=== PATIENT | female | born 1960 ===

== ENCOUNTER 2017-03-27 18:35 | Inpatient (IN) | payer OTHER ==
--- NOTE | 2017-03-27 22:00 | ED PDOC ---
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 Patient reports pain to area. Patient notes a sacral pressure ulcer but denies any fever, chills, nausea, vomiting, abdominal pain, chest pain, shortness of breath or any other complaints. Past Medical History - Provider Review Nursing Documentation Reviewed: Yes - Reproductive Menopause: Yes - Cardiac Hx Cardiac Disorders: Yes Hx Hypertension: Yes - Pulmonary Hx Respiratory Disorders: No - Neurological Hx Neurological Disorder: Yes Hx Seizures: Yes (8 years old; denies as adult) Hx Syncope: Yes - HEENT Hx HEENT Disorder: No - Renal Hx Renal Disorder: Yes - Endocrine/Metabolic Hx Endocrine Disorders: No - Hematological/Oncological Hx Blood Disorders: No - Integumentary Hx Dermatological Disorder: No - Musculoskeletal/Rheumatological Hx Musculoskeletal Disorders: Yes Other/Comment: wheelchair bound; tumor in back - Gastrointestinal Hx Gastrointestinal Disorders: Yes Hx Colostomy: Yes Hx Diarrhea: Yes - Genitourinary/Gynecological Hx Incontinence: Yes - Psychiatric Hx Psychophysiologic Disorder: Yes Hx Anxiety: Yes Hx Depression: Yes Hx Substance Use: No - Surgical History Hx Section: Yes (1995) Other/Comment: tumor back 2004 - Anesthesia Hx Anesthesia: Yes Hx Anesthesia Reactions: No Hx Malignant Hyperthermia: No Family/Social History - Physician Review Nursing Documentation Reviewed: Yes Family/Social History: No Known Family HX Smoking Status: Never Smoked Hx Alcohol Use: No Hx Substance Use: No Allergies/Home Meds Allergies/Adverse Reactions: Allergies No Known Allergies Allergy (Verified 03/27/17 20:58) Home Medications: Home Meds Medication Instructions Recorded Confirmed No Known Home Med 03/27/17 03/27/17 Review of Systems - Physician Review All systems were reviewed & negative as marked: Yes - Review of Systems Constitutional: absent: Fevers, Night Sweats Respiratory: absent: SOB Cardiovascular: absent: Chest Pain Gastrointestinal: absent: Abdominal Pain, Nausea, Vomiting Musculoskeletal: Other (bilateral lower extremity redness, warmth and pain) Skin: Ulcer (sacral pressure ulcer) Physical Exam Vital Signs Reviewed: Yes Vital Signs Temp Pulse Resp BP Pulse Ox 03/27/17 22:41 97.9 F 03/27/17 19:15 97.8 F 92 H 18 145/107 H 100 Temperature: Afebrile Blood Pressure: Hypertensive Pulse: Tachycardic Respiratory Rate: Normal Appearance: Positive for: Well-Appearing, Non-Toxic, Comfortable Pain Distress: None Mental Status: Positive for: Alert and Oriented X 3 - Systems Exam Head: Present: Atraumatic, Normocephalic Pupils: Present: PERRL Extroacular Muscles: Present: EOMI Conjunctiva: Present: Normal Mouth: Present: Moist Mucous Membranes Neck: Present: Normal Range of Motion Respiratory/Chest: Present: Clear to Auscultation, Good Air Exchange. No: Respiratory Distress, Accessory Muscle Use Cardiovascular: Present: Regular Rate and Rhythm, Normal S1, S2. No: Murmurs Abdomen: Present: Normal Bowel Sounds, Other (Abdominal left sided colostomy bag ). No: Tenderness, Distention, Peritoneal Signs Back: Present: Normal Inspection, Decubitus Ulcer (sacral decubitus ulcer with minimal draining fluid to the depth of the bone, no surrounding erythema or foul smell) Upper Extremity: Present: Erythema (to bilaterl legs below the knees), Temperature Abnormalties (Hot to touch bilateral legs below th knees). No: Cyanosis, Edema Lower Extremity: Present: Normal Inspection. No: Edema Neurological: Present: GCS=15, CN II-XII Intact, Speech Normal Skin: Present: Warm, Dry, Normal Color. No: Rashes Psychiatric: Present: Alert, Oriented x 3, Normal Insight, Normal Concentration Medical Decision Making ED Course and Treatment: 03/27/17 21:57 Impression: A 56 year old female with bilateral lower extremity redness, warmth and pain. Patient notes sacral pressure ulcer. Plan: -- Labs -- Blood and Urine culture -- Urinalysis -- Reassess and disposition Progress Notes: - Lab Interpretations Lab Results: 03/27/17 21:50 03/27/17 21:35 Lab Results 03/27/17 21:50: WBC 7.0, RBC 5.23, Hgb 13.5, Hct 42.6, MCV 81.5, MCH 25.8, MCHC 31.7, RDW 13.5, Plt Count 286, MPV 10.1, Gran % 69.0 H, Lymph % (Auto) 26.4, [place] % (Auto) 3.1, Eos % (Auto) 1.1 L, Baso % (Auto) 0.4, Gran # 4.82, Lymph # 1.9, Ellsworth # 0.2, Eos # 0.1, Baso # 0.03 03/27/17 21:35: Sodium 141, Potassium 4.2, Chloride 105, Carbon Dioxide 26, Anion Gap 14, BUN 16, Creatinine 0.6 L, Est GFR ( Amer) > 60, Est GFR ( Non-Af Amer) > 60, Random Glucose 135 H, Calcium 9.6, Total Bilirubin 0.7, AST 28, ALT 33, Alkaline Phosphatase 58, Total Protein 7.6, Albumin 4.3, Globulin 3.3, Albumin/Globulin Ratio 1.3, Lipase 98 I have reviewed the lab results: Yes - Medication Orders Current Medication Orders: Piperacillin Sod/Tazobactam Sod (Zosyn 3.375 In Ns 100ml) 100 mls @ 200 mls/hr IVPB STAT STA PRN Reason: Protocol Stop: 03/27/17 23:20 - Scribe Statement The provider has reviewed the documentation as recorded by the Rhett Goins Provider Scribe Attestation: All medical record entries made by the Scribe were at my direction and personally dictated by me. I have reviewed the chart and agree that the record accurately reflects my personal performance of the history, physical exam, medical decision making, and the department course for this patient. I have also personally directed, reviewed, and agree with the discharge instructions and disposition. Disposition/Present on Arrival - Present on Arrival Any Indicators Present on Arrival: Yes History of DVT/PE: No History of Uncontrolled Diabetes: No Urinary Catheter: Yes History of Decub. Ulcer: Yes (unstagable sacral) History Surgical Site Infection Following: Abdominal Surgery, Orthopedic Procedures - Disposition Have Diagnosis and Disposition been Completed?: Yes Diagnosis: Cellulitis, Sacral decubitus ulcer Disposition: HOSPITALIZED Disposition Time: 22:40 Condition: STABLE
[2017-03-27 22:02] LABS: BASO # 0.03 K/mm3 (0.0-2.0); BASO % 0.4 % (0.0-3.0); EOS # 0.1 (0.0-0.7); EOS % 1.1 % (1.5-5.0); GRAN # 4.82 (1.4-6.5); HEMOGLOBIN 13.5 g/dL (12.0-16.0); LYMPH # 1.9 (1.2-3.4); LYMPH % 26.4 % (22.0-35.0); MEAN CELL VOLUME 81.5 fl (80.0-105.0); MEAN CORPUSCULAR HEMOGLOBIN 25.8 pg (25.0-35.0); MEAN CORPUSCULAR HGB CONC 31.7 g/dl (31.0-37.0); MEAN PLATELET VOLUME 10.1 fl (7.0-11.0); MONO # 0.2 (0.1-0.6); MONO % 3.1 % (1.0-6.0); RBC 5.23 10^6/uL (3.5-6.1); RED CELL DISTRIBUTION WIDTH 13.5 % (11.5-14.5)
[2017-03-27 22:09] LABS: ALB/GLOB RATIO 1.3 (1.1-1.8); ALBUMIN 4.3 g/dL (3.0-4.8); ALT/SGPT 33 U/L (7-56); AST/SGOT 28 U/L (14-36); BLOOD UREA NITROGEN 16 mg/dL (7-21); CALCIUM 9.6 mg/dL (8.4-10.5); GFR AFRICAN-AMERICAN > 60; GFR NON-AFRICAN AMERICAN > 60; LIPASE 98 U/L (23-300)
[2017-03-27] MEDS ORDERED: Piperacillin/Tazobact 3.375 gm 100 ML IVPB STA (22:51)
[2017-03-27 23:12] LABS: PH,URINE 6.5 (4.7-8.0); URINE BILIRUBIN NEGATIVE (NEGATIVE); URINE BLOOD NEGATIVE (NEGATIVE); URINE GLUCOSE (UA) >=1000 mg/dL (NEGATIVE); URINE LEUKOCYTE ESTERASE TRACE Leu/uL (NEGATIVE); URINE NITRATE POSITIVE (NEGATIVE); URINE PROTEIN NEGATIVE mg/dL (<30 mg/dL); URINE UROBILINOGEN 0.2 E.U./dL (<1 E.U./dL)
[2017-03-27 23:38] LABS: URINE APPEARANCE SL CLOUDY (CLEAR); URINE COLOR YELLOW (YELLOW)
[2017-03-27 23:41] LABS: URINE BACTERIA MANY (NEG); URINE EPITHELIAL CELLS 0 - 2 /hpf (0-5); URINE RBC 0 - 2 /hpf (0-2)
--- NOTE | 2017-03-28 02:46 | CP.PCM.CON ---
History of Present Illness - History of Present Illness History of Present Illness: Surgery Consult note. Dr. Coto 56yo F with PMHx of Paraplegia 2/2 back tumor, HTN, DM, Anxiety, Depression here for evaluation of bilateral lower extremity wounds, redness and swelling. Surgery consulted for right ischial decubitus. Patient states that she has had R ischial decubitus for a long time. She denies any pain to the right ischial wound and only reports some paresthesias below the level of the lumbar spine. Denies any F/C. No N/V/D. No Abd pain. No CP/SOB. She is unsure when the bilateral lower extremity swelling and erythema started. Does report taking oral antibiotics recently, she does not recall name, does report taking them to completion. She reports a diverting colostomy which was placed at [facility] 2 months ago in order to help the ischial decubitus healing. States that the colostomy is having good output and denies any complaints regarding it. PMHx: Paraplegia, HTN, DM, Anxiety, Depression PSHx: Colostomy, Social Hx: Denies Tobacco, denies ETOH, denies illicit drugs. Wheelchair bound. Homeless NKDA Review of Systems - Review of Systems All systems: reviewed and no additional remarkable complaints except - Constitutional Constitutional: absent: Chills, Fever - Cardiovascular Cardiovascular: absent: Chest Pain, Dyspnea - Respiratory Respiratory: absent: Dyspnea - Gastrointestinal Gastrointestinal: absent: Abdominal Pain, Constipation, Hematemesis, Hematochezia, Nausea, Vomiting - Genitourinary Genitourinary: absent: Dysuria - Musculoskeletal Musculoskeletal: Back Pain - Integumentary Additional comments: lower extremity swelling, erythema. R ischial decubitus Past Patient History - Past Social History Smoking Status: Never Smoked - CARDIAC Hx Cardiac Disorders: Yes Hx Hypertension: Yes - PULMONARY Hx Respiratory Disorders: No - NEUROLOGICAL Hx Neurological Disorder: Yes Hx Seizures: Yes (8 years old; denies as adult) Hx Syncope: Yes - HEENT Hx HEENT Problems: No - RENAL Hx Chronic Kidney Disease: Yes - ENDOCRINE/METABOLIC Hx Endocrine Disorders: No - HEMATOLOGICAL/ONCOLOGICAL Hx Blood Disorders: No - INTEGUMENTARY Hx Dermatological Problems: No - MUSCULOSKELETAL/RHEUMATOLOGICAL Hx Musculoskeletal Disorders: Yes Other/Comment: wheelchair bound; tumor in back - GASTROINTESTINAL Hx Gastrointestinal Disorders: Yes Hx Colostomy: Yes Hx Diarrhea: Yes - GENITOURINARY/GYNECOLOGICAL Hx Incontinence: Yes - PSYCHIATRIC Hx Psychophysiologic Disorder: Yes Hx Anxiety: Yes Hx Depression: Yes Hx Substance Use: No - SURGICAL HISTORY Hx Section: Yes (1995) Other/Comment: tumor back 2004 - ANESTHESIA Hx Anesthesia: Yes Hx Anesthesia Reactions: No Hx Malignant Hyperthermia: No Meds Allergies/Adverse Reactions: Allergies Allergy/AdvReac Type Severity Reaction Status Date / Time No Known Allergies Allergy Verified 03/27/17 20:58 Physical Exam - Constitutional Appears: Non-toxic, No Acute Distress - Head Exam Head Exam: ATRAUMATIC, NORMAL INSPECTION, NORMOCEPHALIC - Eye Exam Eye Exam: EOMI, Normal appearance - ENT Exam ENT Exam: Mucous Membranes Moist - Respiratory Exam Respiratory Exam: NORMAL BREATHING PATTERN. absent: Accessory Muscle Use, Respiratory Distress - Cardiovascular Exam Cardiovascular Exam: RRR. absent: JVD - GI/Abdominal Exam GI & Abdominal Exam: Soft. absent: Distended, Firm, Guarding, Rebound, Rigid, Tenderness Additional comments: colostomy in place, bag in place with no leaks. Semi-solid brown stool output in ostomy. No tenderness - Extremities Exam Extremities exam: Positive for: normal inspection. Negative for: calf tenderness - Neurological Exam Neurological exam: Alert, Oriented x3 - Skin Additional comments: R ischial wound: 6cm x 7cm x 6cm deep wound. Dry with some necrotic tissue deep within wound. No tenderness to palpation. No active drainage or foul odor. Clean and pink wound edges. Bilateral lower extremity erythema up to pretibia. Non-pitting edema. no tenderness. Left lower extremity with two non-healing wounds, superficial. Results - Vital Signs Recent Vital Signs: Last Vital Signs Temp 97.9 F 03/27/17 22:41 Pulse 88 03/28/17 01:29 Resp 17 03/28/17 01:29 BP 116/75 03/28/17 01:29 Pulse Ox 100 03/28/17 01:29 - Labs Result Diagrams: 03/28/17 06:45 03/28/17 06:45 Assessment & Plan - Assessment and Plan (Free Text) Assessment: 56yo F with Right Ischial Stage IV decubitus and bilateral lower extremity cellulitis - Wound care nursing eval - She may benefit with negative pressure wound vac therapy - Continue Abx as per ID - pain management Further recs as per Dr. Nnamdi Luevano PGY1 surgery pager: [phone]
[2017-03-28] MEDS ORDERED: Morphine 2 mg/ml ISec IVP PRN ×2 (02:47→09:09)
[2017-03-28] MEDS: Vancomycin 1gm in NS 250ml 1 GM/250 ML BAG IVPB SCH ×2 (06:57→18:45)
[2017-03-28 07:59] LABS: ALB/GLOB RATIO 0.9 (1.1-1.8); ALBUMIN 2.9 g/dL (3.0-4.8); ALT/SGPT 20 U/L (7-56); AST/SGOT 24 U/L (14-36); BLOOD UREA NITROGEN 10 mg/dL (7-21); CALCIUM 9.5 mg/dL (8.4-10.5); GFR AFRICAN-AMERICAN > 60; GFR NON-AFRICAN AMERICAN > 60
[2017-03-28 08:03] LABS: BASO # 0.02 K/mm3 (0.0-2.0); BASO % 0.4 % (0.0-3.0); EOS # 0.2 (0.0-0.7); EOS % 3.3 % (1.5-5.0); GRAN # 2.63 (1.4-6.5); GRAN % 57.5 % (50.0-68.0); LYMPH # 1.4 (1.2-3.4); LYMPH % 30.3 % (22.0-35.0); MEAN CORPUSCULAR HEMOGLOBIN 22.6 pg (25.0-35.0); MEAN CORPUSCULAR HGB CONC 29.7 g/dl (31.0-37.0); MEAN PLATELET VOLUME 8.6 fl (7.0-11.0); MONO # 0.4 (0.1-0.6); MONO % 8.5 % (1.0-6.0); RBC 3.99 10^6/uL (3.5-6.1); RED CELL DISTRIBUTION WIDTH 17.7 % (11.5-14.5); WHITE BLOOD COUNT 4.6 10^3/ul (4.5-11.0)
[2017-03-28 08:05] LABS: MEAN CELL VOLUME 75.9 fl (80.0-105.0)
--- NOTE | 2017-03-28 11:23 | CP.PCM.CON ---
<Lilibeth Ly - Last Filed: 03/28/17 13:04> History of Present Illness - History of Present Illness History of Present Illness: PGY2 Medicine Resident Consult note for GI 56yo male PMHx Paraplegia 2/2 back tumor, HTN, DM, uterine fibroids, Anxiety, Depression presented to ED for evaluation of b/l LE wounds, redness, and swelling. Patient noted to have a R ischial wound and reports paresthesias below the lumbar spine. GI consulted for anemia. Patient reports a diverting colostomy which was placed at [facility] 2 months ago in order to help the ischial decubitus healing. Since then she stated she noted some blood in the ostomy bag after the procedure and recently aswell. She denied any dizzines, lightheadedness, nausea, vomiting, abdominal pain, melena, diarrhea, constipation. Patient is wheelchair bound. ROS: 12 point review of systems negative except as indicated in HPI PMHx: Paraplegia 2/2 back tumor, HTN, DM, uterine fibroids, Anxiety, Depression PSurgHx: diverting colostomy [facility] 2 months ago, PProcedures: Colonoscopy 2004 in [facility] Family Hx: denied hx of colon or gastric ca Social Hx: Denies Tobacco, denies ETOH, denies illicit drugs. Wheelchair bound. Homeless Meds: Please see medication reconciliation ALL: NKDA PMD: none GI: none Pharmacy: [facility] in [place] Review of Systems - Review of Systems All systems: reviewed and no additional remarkable complaints except - Constitutional Constitutional: As Per HPI. absent: Chills, Fever - EENT Eyes: As Per HPI. absent: Blurred Vision Ears: As Per HPI. absent: Dizziness Nose/Mouth/Throat: As Per HPI. absent: Sore Throat - Cardiovascular Cardiovascular: As Per HPI. absent: Chest Pain, Dyspnea - Respiratory Respiratory: As Per HPI. absent: Cough, Dyspnea - Gastrointestinal Gastrointestinal: As Per HPI, Hematochezia. absent: Abdominal Pain, Change in Bowel Habits, Constipation, Cramping, Diarrhea, Hematemesis, Loose Stools, Melena, Nausea, Vomiting - Genitourinary Genitourinary: As Per HPI. absent: Dysuria - Integumentary Integumentary: As Per HPI Additional comments: swelling and redness b/l LE - Neurological Neurological: As Per HPI. absent: Disequilibrium, Dizziness, Headaches, Weakness - Endocrine Endocrine: As Per HPI. absent: Polydipsia, Polyphagia, Polyuria - Hematologic/Lymphatic Hematologic: As Per HPI. absent: Easy Bleeding Past Patient History - Past Social History Smoking Status: Never Smoked - CARDIAC Hx Cardiac Disorders: Yes Hx Hypertension: Yes - PULMONARY Hx Respiratory Disorders: No - NEUROLOGICAL Hx Neurological Disorder: Yes Hx Seizures: Yes (8 years old; denies as adult) Hx Syncope: Yes - HEENT Hx HEENT Problems: No - RENAL Hx Chronic Kidney Disease: Yes - ENDOCRINE/METABOLIC Hx Endocrine Disorders: No - HEMATOLOGICAL/ONCOLOGICAL Hx Blood Disorders: No - INTEGUMENTARY Hx Dermatological Problems: No - MUSCULOSKELETAL/RHEUMATOLOGICAL Hx Musculoskeletal Disorders: Yes Other/Comment: wheelchair bound; tumor in back - GASTROINTESTINAL Hx Gastrointestinal Disorders: Yes Hx Colostomy: Yes Hx Diarrhea: Yes - GENITOURINARY/GYNECOLOGICAL Hx Incontinence: Yes - PSYCHIATRIC Hx Psychophysiologic Disorder: Yes Hx Anxiety: Yes Hx Depression: Yes Hx Substance Use: No - SURGICAL HISTORY Hx Section: Yes (1995) Other/Comment: tumor back 2004 - ANESTHESIA Hx Anesthesia: Yes Hx Anesthesia Reactions: No Hx Malignant Hyperthermia: No Meds Allergies/Adverse Reactions: Allergies Allergy/AdvReac Type Severity Reaction Status Date / Time No Known Allergies Allergy Verified 03/27/17 20:58 - Medications Medications: Current Medications Amlodipine Besylate (Norvasc) 5 mg PO DAILY [facility] Aspirin (Aspirin Chewable) 81 mg PO DAILY [facility] Atorvastatin Calcium (Lipitor) 10 mg PO DIN [facility] Glipizide (Glucotrol) 10 mg PO 0730,1630 [facility] Vancomycin HCl (Vancomycin 1gm) 1 gm in 250 mls @ 167 mls/hr IVPB Q12H [facility] PRN Reason: Protocol Last Admin: 03/28/17 06:57 Dose: 167 mls/hr Insulin Detemir (Levemir) 20 unit SC HS [facility] Insulin Human Regular (Humulin R Low) 0 units SC ACHS [facility] PRN Reason: Protocol Morphine Sulfate (Morphine) 2 mg IVP Q4H PRN PRN Reason: Pain, severe (8-10) Morphine Sulfate (Morphine) 1 mg IVP Q6H PRN PRN Reason: Pain, moderate (4-7) Sertraline HCl (Zoloft) 100 mg PO DAILY [facility] Thiamine HCl (Vitamin B1 Tab) 100 mg PO DAILY [facility] Physical Exam - Constitutional Appears: Non-toxic, No Acute Distress, Unkempt - Head Exam Head Exam: ATRAUMATIC, NORMAL INSPECTION, NORMOCEPHALIC - Eye Exam Eye Exam: EOMI, Normal appearance. absent: Conjunctival injection, Scleral icterus - ENT Exam ENT Exam: Mucous Membranes Moist - Respiratory Exam Respiratory Exam: Clear to Auscultation Bilateral, NORMAL BREATHING PATTERN. absent: Accessory Muscle Use, Rales, Rhonchi, Wheezes, Respiratory Distress - Cardiovascular Exam Cardiovascular Exam: RRR, +S1, +S2. absent: Systolic Murmur - GI/Abdominal Exam GI & Abdominal Exam: Normal Bowel Sounds, Soft. absent: Tenderness Additional comments: colostomy in place, bag with no leaks. Semi-solid brown stool output in ostomy - Rectal Exam Rectal Exam: Deferred - Extremities Exam Additional comments: erythematous b/l - Neurological Exam Neurological exam: Alert, Oriented x3 - Psychiatric Exam Psychiatric exam: Normal Affect, Normal Mood Results - Vital Signs Recent Vital Signs: Last Vital Signs Temp 98.5 F 03/28/17 08:15 Pulse 87 03/28/17 08:15 Resp 20 03/28/17 08:15 BP 154/100 H 03/28/17 08:15 Pulse Ox 99 03/28/17 08:15 - Labs Result Diagrams: 03/28/17 12:10 03/28/17 06:45 Assessment & Plan - Assessment and Plan (Free Text) Assessment: 56yo male PMHx Paraplegia 2/2 back tumor, HTN, DM, uterine fibroids, Anxiety, Depression presented to ED for evaluation of b/l LE wounds, redness, and swelling 1. anemia 2. R ischial stage IV decubitus 3. b/l LE cellulitis Plan: -Hgb on admission 9 --> repeat 8.8 -f/u iron studies -may benefit from endoscopic eval once acute issues resolve -continue management as per primary GI will monitor clinical course Discussed with Dr. Jose Ly PGY2 <Donald Garcia MD - Last Filed: 03/28/17 19:56> Meds - Medications Medications: Current Medications Amlodipine Besylate (Norvasc) 5 mg PO DAILY [facility] Last Admin: 03/28/17 11:40 Dose: 5 mg Aspirin (Aspirin Chewable) 81 mg PO DAILY [facility] Last Admin: 03/28/17 11:39 Dose: 81 mg Atorvastatin Calcium (Lipitor) 10 mg PO DIN [facility] Last Admin: 03/28/17 17:11 Dose: 10 mg Betamethasone/Clotrimazole (Lotrisone) 0 ml TOP DAILY [facility] Glipizide (Glucotrol) 10 mg PO 0730,1630 [facility] Last Admin: 03/28/17 17:19 Dose: 10 mg Vancomycin HCl (Vancomycin 1gm) 1 gm in 250 mls @ 167 mls/hr IVPB Q12H [facility] PRN Reason: Protocol Last Admin: 03/28/17 18:45 Dose: 167 mls/hr Insulin Detemir (Levemir) 20 unit SC HS [facility] Insulin Human Regular (Humulin R Low) 0 units SC ACHS [facility] PRN Reason: Protocol Last Admin: 03/28/17 17:11 Dose: 2 units Morphine Sulfate (Morphine) 2 mg IVP Q4H PRN PRN Reason: Pain, severe (8-10) Last Admin: 03/28/17 17:19 Dose: 2 mg Morphine Sulfate (Morphine) 1 mg IVP Q6H PRN PRN Reason: Pain, moderate (4-7) Sertraline HCl (Zoloft) 100 mg PO DAILY [facility] Last Admin: 03/28/17 11:39 Dose: 100 mg Thiamine HCl (Vitamin B1 Tab) 100 mg PO DAILY [facility] Last Admin: 03/28/17 11:40 Dose: 100 mg Results - Vital Signs Recent Vital Signs: Last Vital Signs Temp 98.5 F 03/28/17 08:15 Pulse 87 03/28/17 08:15 Resp 20 03/28/17 08:15 BP 154/100 H 03/28/17 08:15 Pulse Ox 99 03/28/17 08:15 - Labs Result Diagrams: 03/28/17 12:10 03/28/17 06:45 Labs: Laboratory Results - last 24 hr 03/28/17 03/28/17 03/28/17 11:52 12:10 13:00 WBC 4.4 L RBC 3.93 Hgb 8.8 L Hct 30.0 L MCV 76.3 L MCH 22.4 L MCHC 29.3 L RDW 17.7 H Plt Count 328 MPV 8.6 POC Glucose (mg/dL) 303 H Iron TIBC % Saturation Transferrin 197.39 L 03/28/17 03/28/17 13:00 16:39 WBC RBC Hgb Hct MCV MCH MCHC RDW Plt Count MPV POC Glucose (mg/dL) 230 H Iron 17 L TIBC 254 L % Saturation 7 L Transferrin Attending/Attestation - Attestation I have personally seen and examined this patient.: Yes I have fully participated in the care of the patient.: Yes I have reviewed all pertinent clinical information: Yes Notes (Text): 03/28/17 19:45 Patient seen with GI fellow and medical practice manager. This is a 56 yr old male with PMHx Paraplegia 2/2 back tumor, HTN, DM, uterine fibroids, Anxiety, Depression presented to ED for evaluation of b/l LE wounds, redness, and swelling. GI consulted for anemia. She has diverting colostomy placed two months ago to prevent from contaminating the decubiti ulcer. There was brown stool in the colostomy. H/Hct at baseline. Denies overt GI bleeding. Colonoscopy 10 years ago was normal at [facility]. Surgery managing decubiti ulcer. Trend daily Hb Continue antibiotics for B/L LE cellulitis Anemia work up Will benefit from endoscopy evaluation once acute issues have resolved
[2017-03-28 12:32] LABS: HEMOGLOBIN 8.8 g/dL (12.0-16.0); MEAN CELL VOLUME 76.3 fl (80.0-105.0); MEAN CORPUSCULAR HEMOGLOBIN 22.4 pg (25.0-35.0); MEAN CORPUSCULAR HGB CONC 29.3 g/dl (31.0-37.0); MEAN PLATELET VOLUME 8.6 fl (7.0-11.0); RBC 3.93 10^6/uL (3.5-6.1); RED CELL DISTRIBUTION WIDTH 17.7 % (11.5-14.5); WHITE BLOOD COUNT 4.4 10^3/ul (4.5-11.0)
[2017-03-28] MEDS: Insulin Reg-LOW-Coverage SC SCH ×3 (12:43→22:22)
[2017-03-28 13:39] LABS: IRON 17 ug/dL (45-180)
[2017-03-28 13:48] LABS: TOTAL IRON BINDING CAPACITY 254 ug/dL (265-497)
[2017-03-28 14:01] LABS: % IRON SATURATION 7 % (20-55)
--- NOTE | 2017-03-28 15:27 | CP.PCM.CON ---
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 Patient is seen sleeping at time of examination but is easily arousable. She states that she is currently homeless and can not give an accurate timeline of how long she has had the wounds on her legs or how long the cellulitis has been present for. She denies any malodor or purulent drainage from the wounds and denies any further pedal complaints at this time. She also denies recent N/V/F/C/CP/SOB/D/posterior calf pain when squeezed Review of Systems - Review of Systems Review of Systems: ROS as per HPI Past Patient History - Past Social History Smoking Status: Never Smoked - CARDIAC Hx Cardiac Disorders: Yes Hx Hypertension: Yes - PULMONARY Hx Respiratory Disorders: No - NEUROLOGICAL Hx Neurological Disorder: Yes Hx Seizures: Yes (8 years old; denies as adult) Hx Syncope: Yes - HEENT Hx HEENT Problems: No - RENAL Hx Chronic Kidney Disease: Yes - ENDOCRINE/METABOLIC Hx Endocrine Disorders: No - HEMATOLOGICAL/ONCOLOGICAL Hx Blood Disorders: No - INTEGUMENTARY Hx Dermatological Problems: No - MUSCULOSKELETAL/RHEUMATOLOGICAL Hx Musculoskeletal Disorders: Yes Other/Comment: wheelchair bound; tumor in back - GASTROINTESTINAL Hx Gastrointestinal Disorders: Yes Hx Colostomy: Yes Hx Diarrhea: Yes - GENITOURINARY/GYNECOLOGICAL Hx Incontinence: Yes - PSYCHIATRIC Hx Psychophysiologic Disorder: Yes Hx Anxiety: Yes Hx Depression: Yes Hx Substance Use: No - SURGICAL HISTORY Hx Section: Yes (1995) Other/Comment: tumor back 2004 - ANESTHESIA Hx Anesthesia: Yes Hx Anesthesia Reactions: No Hx Malignant Hyperthermia: No Meds Allergies/Adverse Reactions: Allergies Allergy/AdvReac Type Severity Reaction Status Date / Time No Known Allergies Allergy Verified 03/27/17 20:58 - Medications Medications: Current Medications Amlodipine Besylate (Norvasc) 5 mg PO DAILY [facility] Last Admin: 03/28/17 11:40 Dose: 5 mg Aspirin (Aspirin Chewable) 81 mg PO DAILY [facility] Last Admin: 03/28/17 11:39 Dose: 81 mg Atorvastatin Calcium (Lipitor) 10 mg PO DIN [facility] Glipizide (Glucotrol) 10 mg PO 0730,1630 [facility] Vancomycin HCl (Vancomycin 1gm) 1 gm in 250 mls @ 167 mls/hr IVPB Q12H [facility] PRN Reason: Protocol Last Admin: 03/28/17 06:57 Dose: 167 mls/hr Insulin Detemir (Levemir) 20 unit SC HS [facility] Insulin Human Regular (Humulin R Low) 0 units SC ACHS [facility] PRN Reason: Protocol Last Admin: 03/28/17 12:43 Dose: 4 units Morphine Sulfate (Morphine) 2 mg IVP Q4H PRN PRN Reason: Pain, severe (8-10) Morphine Sulfate (Morphine) 1 mg IVP Q6H PRN PRN Reason: Pain, moderate (4-7) Sertraline HCl (Zoloft) 100 mg PO DAILY [facility] Last Admin: 03/28/17 11:39 Dose: 100 mg Thiamine HCl (Vitamin B1 Tab) 100 mg PO DAILY [facility] Last Admin: 03/28/17 11:40 Dose: 100 mg Physical Exam - Constitutional Appears: Well, Non-toxic, No Acute Distress - Extremities Exam Additional comments: LE focused exam: Vasc: DP/PT pulses palpable b/l. Skin temperature elevated to b/l LE. CFT < 3 seconds to all digits b/l. Minimal edema noted to b/l LE Neuro: Epicritic and protective sensation grossly intact b/l. Derm: B/l cellulitic changes noted to legs. Two superficial wounds noted to left leg. Wound #1: Located posterior leg approximately 3 cm x 3 cm with fibrogranular base. No malodor, no purulent drainage, no tracking, tunneling or undermining noted. Wound #2: Located lateral leg approximately 2 cm x 2 cm with fibrogranular base. No malodor, no purulent drainage, no tracking, tunneling or undermining noted MSK: Paraplegia noted to RLE. Minimal POP to wounds. ROM WNL left LE. Muscle strength 5/5 to all major muscle groups, left leg - Neurological Exam Neurological exam: Alert, Oriented x3 - Psychiatric Exam Psychiatric exam: Normal Affect, Normal Mood Results - Vital Signs Recent Vital Signs: Last Vital Signs Temp 98.5 F 03/28/17 08:15 Pulse 87 03/28/17 08:15 Resp 20 03/28/17 08:15 BP 154/100 H 03/28/17 08:15 Pulse Ox 99 03/28/17 08:15 - Labs Result Diagrams: 03/28/17 12:10 03/28/17 06:45 Labs: Laboratory Results - last 24 hr 03/28/17 03/28/17 03/28/17 11:52 12:10 13:00 WBC 4.4 L RBC 3.93 Hgb 8.8 L Hct 30.0 L MCV 76.3 L MCH 22.4 L MCHC 29.3 L RDW 17.7 H Plt Count 328 MPV 8.6 POC Glucose (mg/dL) 303 H Iron 17 L TIBC 254 L % Saturation 7 L Assessment & Plan - Assessment and Plan (Free Text) Assessment: 56 yo female PMHx 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 Brito Afebrile, absent leukocytosis Continue abx Lotrisone ordered to be applied to b/l legs daily Surgical shoes ordered to be worn by patient Arterial dopplers ordered Wounds dressed with optifoam dressing No surgical intervention planned at this time Podiatry will continue to follow while patient in house - Date & Time Date: 03/28/17 Time: 15:33 <Anahy Brito - Last Filed: 04/06/17 16:24> Meds - Medications Medications: Current Medications Amlodipine Besylate (Norvasc) 5 mg PO DAILY [facility] Last Admin: 04/06/17 10:23 Dose: 5 mg Aspirin (Aspirin Chewable) 81 mg PO DAILY [facility] Last Admin: 04/06/17 10:20 Dose: 81 mg Atorvastatin Calcium (Lipitor) 10 mg PO DIN [facility] Last Admin: 04/05/17 17:51 Dose: 10 mg Betamethasone/Clotrimazole (Lotrisone) 0 ml TOP DAILY [facility] Last Admin: 04/06/17 14:18 Dose: Not Given Collagenase (Santyl) 1 gm TOP DAILY [facility] Last Admin: 04/06/17 10:23 Dose: 1 applic Ferrous Sulfate (Feosol) 324 mg PO DAILY [facility] Last Admin: 04/06/17 10:20 Dose: 324 mg Glipizide (Glucotrol) 5 mg PO 0730,1630 [facility] Last Admin: 04/06/17 08:15 Dose: 5 mg Meropenem (Merrem Iv 1 Gm Premix) 50 mls @ 100 mls/hr IVPB Q8 [facility] Last Admin: 04/06/17 14:17 Dose: 100 mls/hr Insulin Human Regular (Humulin R Low) 0 units SC ACHS [facility] PRN Reason: Protocol Last Admin: 04/06/17 11:29 Dose: Not Given Ketorolac Tromethamine (Toradol) 30 mg IVP Q6H PRN PRN Reason: Pain, moderate (4-7) Last Admin: 04/05/17 13:15 Dose: 30 mg Metformin HCl (Glucophage) 500 mg PO BID [facility] Last Admin: 04/06/17 10:20 Dose: 500 mg Sertraline HCl (Zoloft) 100 mg PO DAILY [facility] Last Admin: 04/06/17 10:20 Dose: 100 mg Thiamine HCl (Vitamin B1 Tab) 100 mg PO DAILY [facility] Last Admin: 04/06/17 10:20 Dose: 100 mg Tramadol HCl (Ultram) 50 mg PO Q8H PRN PRN Reason: Pain, severe (8-10) Last Admin: 04/06/17 14:50 Dose: 50 mg Results - Vital Signs Recent Vital Signs: Last Vital Signs Temp 97.4 F L 04/06/17 08:05 Pulse 62 04/06/17 08:05 Resp 20 04/06/17 08:05 BP 135/68 04/06/17 08:05 Pulse Ox 98 04/06/17 08:05 - Labs Result Diagrams: 04/05/17 07:00 04/05/17 07:00 Labs: Laboratory Results - last 24 hr 04/05/17 04/05/17 04/06/17 21:08 22:04 07:25 POC Glucose (mg/dL) 69 107 67 04/06/17 11:07 POC Glucose (mg/dL) 99 Attending/Attestation - Attestation I have personally seen and examined this patient.: Yes I have fully participated in the care of the patient.: Yes I have reviewed all pertinent clinical information: Yes
--- NOTE | 2017-03-28 17:11 | CP.PCM.CON ---
History of Present Illness - History of Present Illness History of Present Illness: 56 year old female with PMH of back tumor with paraplegia, S/P colostomy, indwelling Miguel catheter, HTN, DM, anxiety, history of right sided ischial decubitus ulcer came in to [facility] because of worsening redness and swelling of her lower extremities especially her left leg. She is homeless. She denies fever or chills, no nausea or vomiting, no headache or dizziness, no chest pain, no SOB, no cough or colds, no sore throat, no abdominal pain, no diarrhea, no dysuria. She also has ulcers on her legs, mostly on her left leg. Infectious Diseases consult is requested to further evaluate and manage. Review of Systems - Review of Systems All systems: reviewed and no additional remarkable complaints except (as per HPI ) Past Patient History - Past Social History Smoking Status: Never Smoked - CARDIAC Hx Cardiac Disorders: Yes Hx Hypertension: Yes - PULMONARY Hx Respiratory Disorders: No - NEUROLOGICAL Hx Neurological Disorder: Yes Hx Seizures: Yes (8 years old; denies as adult) Hx Syncope: Yes - HEENT Hx HEENT Problems: No - RENAL Hx Chronic Kidney Disease: Yes - ENDOCRINE/METABOLIC Hx Endocrine Disorders: No - HEMATOLOGICAL/ONCOLOGICAL Hx Blood Disorders: No - INTEGUMENTARY Hx Dermatological Problems: No - MUSCULOSKELETAL/RHEUMATOLOGICAL Hx Musculoskeletal Disorders: Yes Other/Comment: wheelchair bound; tumor in back - GASTROINTESTINAL Hx Gastrointestinal Disorders: Yes Hx Colostomy: Yes Hx Diarrhea: Yes - GENITOURINARY/GYNECOLOGICAL Hx Incontinence: Yes - PSYCHIATRIC Hx Psychophysiologic Disorder: Yes Hx Anxiety: Yes Hx Depression: Yes Hx Substance Use: No - SURGICAL HISTORY Hx Section: Yes (1995) Other/Comment: tumor back 2004 - ANESTHESIA Hx Anesthesia: Yes Hx Anesthesia Reactions: No Hx Malignant Hyperthermia: No Meds Allergies/Adverse Reactions: Allergies Allergy/AdvReac Type Severity Reaction Status Date / Time No Known Allergies Allergy Verified 03/27/17 20:58 - Medications Medications: Current Medications Morphine Sulfate (Morphine) 2 mg IVP Q4H PRN PRN Reason: Pain, moderate (4-7) Physical Exam - Constitutional Appears: Non-toxic - Head Exam Head Exam: NORMAL INSPECTION - ENT Exam ENT Exam: Mucous Membranes Moist - Neck Exam Neck exam: Negative for: Lymphadenopathy, Meningismus - Respiratory Exam Respiratory Exam: Decreased Breath Sounds - Cardiovascular Exam Cardiovascular Exam: +S1, +S2 - GI/Abdominal Exam GI & Abdominal Exam: Soft. absent: Tenderness - Extremities Exam Additional comments: both lower extremities with redness and swelling, with open ulcers on the left leg with serous discharge Results - Vital Signs Recent Vital Signs: Last Vital Signs Temp 97.8 F 03/28/17 04:18 Pulse 106 H 03/28/17 04:18 Resp 20 03/28/17 04:18 BP 150/84 03/28/17 04:18 Pulse Ox 100 03/28/17 01:29 - Labs Result Diagrams: 03/28/17 12:10 03/28/17 06:45 Assessment & Plan - Assessment and Plan (Free Text) Plan: Assessment bilateral lower extremity cellulitis with left leg ulcers back tumor with paraplegia S/P colostomy indwelling Miguel catheter HTN DM anxiety right sided ischial decubitus ulcer Plan Started patient on Vancomycin and will follow up blood and wound cx; will get doppler U/S of lower extremities follow up Sugery plan for the ischial ulcer will monitor clinically will get HIV test
[2017-03-28] MEDS: Morphine 2 mg/ml ISec IVP PRN ×2 (17:19→21:42)
--- NOTE | 2017-03-28 19:49 | HP ---
HISTORY OF PRESENT ILLNESS: I saw her in her room. She comes in with a history of lower extremity redness, warmth and ulcers. She also has sacral pressure ulcer. She is not doing that well. She is a 56-year-old female with medical history including paraplegia secondary to a back tumor. She has colostomy bag, indwelling Miguel catheter. We will change that. It was last changed a month ago. She look septic to me. In bed, she is warm. Her legs are extremely red with some ulcers. She has hypertension. She has seizures since she was 8 years old, syncope. She is wheelchair bound from a tumor in her back with paraplegia, colostomy, diarrhea, incontinence, anxiety, depression, in 1995 and back tumor. FAMILY HISTORY: No known family history. SOCIAL HISTORY: Never smoked. No alcohol. No drugs. ALLERGIES: NO KNOWN DRUG ALLERGIES. MEDICATIONS: No medications. put her on, I am not sure if she is taking medications for seizures. REVIEW OF SYSTEMS: No acute vision or hearing changes. The legs are very red and inflamed. She is very warm. She is not feeling well, may be a little lethargic. PHYSICAL EXAMINATION: GENERAL: She is not well appearing. She looks lethargic, toxic, and septic. She is alert and oriented x3 when we get her to talk. VITAL SIGNS: She has 97.8 temperature, 92 pulse, 18 respiratory rate, 145/107 blood pressure. I will give her some blood pressure pills and 100% O2 sat on room air. HEENT: Head is atraumatic and normocephalic. Extraocular muscles intact. Pupils reactive to light. Mouth is dry. NECK: Supple. HEART: Regular rate. Normal S1 and S2. LUNGS: Decreased breath sounds. Fair air exchange. Clear to auscultation. ABDOMEN: Soft and nontender. Positive bowel sounds. There is a colostomy bag present. BACK: Sacral decubitus ulcer to the bone, it is clean. EXTREMITIES: Both legs are erythematous. They are warm. There is an ulcer on there. NEUROLOGIC: She has GCS of 50. Cranial nerves II through XII are grossly intact. She has paraplegia from the spine surgery. Alert and oriented x3. LABORATORY DATA: She had multiple tests. She has urine, which has many bacteria. She has urinary tract infection. She has 136 sodium, potassium is down to 3.4, I will gave her some potassium. GFR is greater than 60. BUN 10 and creatinine 0.4. Sugars are 396; Endocrinology put on coverage. Calcium is 9.5, total bilirubin 0.2, AST is 24, ALT is 20 and alkaline phosphatase 151, total protein 6.1 and lipase is 98. White count is 4.6 and hemoglobin went from 13.5 to 9, I am going to check the stool for occult blood, hematocrit 30.1 and platelets are 323. IMPRESSION AND PLAN: She is here for cellulitis of bilateral lower extremities, hypertension, anemia, urinary tract infection, history of paraplegia. This will be an inpatient she is very sick, I will change that. We will get consults to help me take care of this young lady. Carlos Enrique Ortiz DO MTDD
[2017-03-28] MEDS ORDERED: Insulin Detemir 100 units/ml Vial (Levemir) SC SCH ×2 (22:00)
--- NOTE | 2017-03-28 22:24 | CON ---
DATE: ENDOCRINOLOGY CONSULTATION LOCATION: In room 566. HISTORY OF PRESENT ILLNESS: This is a 56-year-old female with known history of type 2 insulin-requiring diabetes with concurrent paraplegia and with multiple decubitus in both the sacral and ischial areas, and is now being referred for diabetic evaluation because of supervening hyperglycemic accelerations as noted thereof. PAST MEDICAL HISTORY: As mentioned above, history of type 2 insulin-requiring diabetes, the exact name and dose of insulin regimen is not available in our medication list as noted, but she was actually insulin-requiring at home as noted. History of hypertension, dyslipidemia, history of a previous spinal tumor with subsequent paraplegia and concurrently has a diverting colostomy in place and is also wheelchair bound at this time, history of chronic sacral decubitus and a recent right ischial decubitus as noted. FAMILY HISTORY: Positive for hypertension and diabetes. SOCIAL HISTORY: The patient has a supportive family. No known substance use. She apparently as per the record is homeless at this time. REVIEW OF SYSTEMS: As mentioned above, admits to generalized body weakness with easy fatigability and tiredness and suboptimal energy level; also admits to dizziness and lightheadedness, worse on the day of admission. Moreover, admits to suboptimal energy level with increasing bouts of hypersomnolence and lethargy, worse in the last few days prior to admission. She denies any recent precordial chest pain. No any paroxysmal nocturnal dyspnea. Her oral intake has been variable with nausea, dyspepsia, and habitual constipation. She has a recent diverting colostomy inserted at the [facility] as noted. She also has an indwelling catheter in place. PHYSICAL EXAMINATION: GENERAL: This is an average-built female, in no apparent distress. VITAL SIGNS: Blood pressure 140/80, pulse of 70 beats per minute and regular, temperature 99, respirations 20. Height is 5 feet 3 inches and weight is 165 pounds. HEENT: Head is normocephalic. Eyes are anicteric with pink conjunctivae. Funduscopy not possible at this time. Ears, nose, and throat otherwise normal. NECK: Supple. Thyroid gland is normal in size. No carotid bruits or cervical adenopathy. CARDIOPULMONARY: Adynamic precordium. S1 and S2 are rapid and regular. LUNGS: Clear to auscultation. ABDOMEN: Flat, soft with positive bowel sounds. EXTREMITIES: No peripheral edema. Pulses are diminished peripherally. Lower extremity showed diffuse bipedal edema and erythema and xerosis changes as noted. LABORATORY DATA: Chemistry showed a BUN is 10, sodium 136, potassium 3.4, chloride 100, CO2 of 28, glucose 396 and creatinine 0.4. ASSESSMENT: This is a 56-year-old female with uncontrolled and decompensated type 2 insulin-requiring diabetes, presented here with lower extremity cellulitis on the background of significant paraplegia and supervening ischial and sacral decubitus ulcers contributing to the increased insulin resistance and further impaired glucose tolerance thereof. PLAN OF MANAGEMENT: We will start her on basal insulin with Levemir of 20 units subcu at bedtime daily as ordered. We will observe a glycemic fluctuation overnight and if hyperglycemic level supervene, then we will start her on a low-dose Humalog insulin given t.i.d. as indicated before meals. We will modify the coverage scale to obviate hypoglycemia and we will continue the low-dose algorithm using regular insulin as given. We will add glipizide given as 10 mg b.i.d. before meals to start tonight as ordered. We will obtain serial chemistries and supplement accordingly as needed. We will follow with you. Lisa Junior MD
[2017-03-29] MEDS: Morphine 2 mg/ml ISec IVP PRN ×5 (02:16→21:39)
--- NOTE | 2017-03-29 05:18 | CP.PCM.PN ---
Addendum entered and electronically signed by Lilibeth Ly DO 03/29/17 14:51: Patient scheduled for colonoscopy in AM of 03/29/17 NPO after midnight Bowel prep ordered Patient consent to procedure is in chart Discussed with attending Dr. Hanny Ly PGY2 Original Note: <Lilibeth Ly - Last Filed: 03/29/17 09:40> Subjective - Date & Time of Evaluation Date of Evaluation: 03/29/17 Time of Evaluation: 09:40 - Subjective Subjective: PGY2 Medicine Resident Progress note for GI Patient seen and examined at bedside. No acute events overnight as per nursing. Patient afebrile overnight and denied any chills. Ostomy bag had soft brown stool this AM with no blood noted. Patient complained of some skin irritation around ostomy site and around ischial decubitus site. Voiced concern of not having enough ostomy bags upon discharge. Denied nausea, vomiting, melena. Patient has a good appetite and tolerated diet. Spoien to in detail regarding need for colonoscopy but patient is reluctant due to bowel prep regimen. Patient to have negative pressure wound vac placed this AM. ROS: 12 point review of systems negative except as indicated in HPI Objective - Vital Signs/Intake and Output Vital Signs (last 24 hours): Temp Pulse Resp BP Pulse Ox 98.6 F 91 H 20 139/75 100 03/29/17 00:00 03/29/17 00:00 03/29/17 00:00 03/29/17 00:00 03/29/17 00:00 Intake and Output: 03/28/17 03/29/17 18:59 06:59 Intake Total 900 Output Total 1500 Balance -600 - Medications Medications: Current Medications Amlodipine Besylate (Norvasc) 5 mg PO DAILY [facility] Last Admin: 03/28/17 11:40 Dose: 5 mg Aspirin (Aspirin Chewable) 81 mg PO DAILY [facility] Last Admin: 03/28/17 11:39 Dose: 81 mg Atorvastatin Calcium (Lipitor) 10 mg PO DIN [facility] Last Admin: 03/28/17 17:11 Dose: 10 mg Betamethasone/Clotrimazole (Lotrisone) 0 ml TOP DAILY [facility] Collagenase (Santyl) 1 gm TOP DAILY [facility] Glipizide (Glucotrol) 10 mg PO 0730,1630 [facility] Last Admin: 03/28/17 17:19 Dose: 10 mg Vancomycin HCl (Vancomycin 1gm) 1 gm in 250 mls @ 167 mls/hr IVPB Q12H [facility] PRN Reason: Protocol Last Admin: 03/28/17 18:45 Dose: 167 mls/hr Insulin Detemir (Levemir) 20 unit SC HS [facility] Last Admin: 03/28/17 22:23 Dose: Not Given Insulin Human Regular (Humulin R Low) 0 units SC ACHS [facility] PRN Reason: Protocol Last Admin: 03/28/17 22:22 Dose: Not Given Metformin HCl (Glucophage) 500 mg PO BID [facility] Morphine Sulfate (Morphine) 2 mg IVP Q4H PRN PRN Reason: Pain, severe (8-10) Last Admin: 03/29/17 02:16 Dose: 2 mg Morphine Sulfate (Morphine) 1 mg IVP Q6H PRN PRN Reason: Pain, moderate (4-7) Sertraline HCl (Zoloft) 100 mg PO DAILY [facility] Last Admin: 03/28/17 11:39 Dose: 100 mg Thiamine HCl (Vitamin B1 Tab) 100 mg PO DAILY [facility] Last Admin: 03/28/17 11:40 Dose: 100 mg - Labs Labs: 03/28/17 12:10 - Constitutional Appears: Non-toxic, No Acute Distress, Unkempt, Chronically Ill - Head Exam Head Exam: ATRAUMATIC, NORMAL INSPECTION, NORMOCEPHALIC - Eye Exam Eye Exam: EOMI, Normal appearance. absent: Conjunctival injection, Scleral icterus - ENT Exam ENT Exam: Mucous Membranes Moist - Neck Exam Neck Exam: Full ROM, Normal Inspection - Respiratory Exam Respiratory Exam: Clear to Ausculation Bilateral, NORMAL BREATHING PATTERN. absent: Accessory Muscle Use, Rales, Rhonchi, Wheezes, Respiratory Distress - Cardiovascular Exam Cardiovascular Exam: REGULAR RHYTHM, RRR, +S1, +S2. absent: Murmur - GI/Abdominal Exam GI & Abdominal Exam: Soft, Normal Bowel Sounds. absent: Tenderness Additional comments: colostomy in place, bag with no leaks. 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 iron deficiency anemia 2. R ischial stage IV decubitus 3. b/l LE cellulitis Plan: -Hgb stable and no overt bleeding noted -Iron studies: Iron: 17 TIBC: 254 %sat: 7 Transferrin 197.39 Ferritin: 23.4 -electrolytes repleted -will discuss need for colonoscopy again later today. Patient started on clear liquid diet in case she complies with procedure which will be scheduled for tomorrow in the AM. If so, will keep patient NPO after midnight. -if patient decides against colonoscopy on this admission, patient has been counseled on need for outpatient GI follow up and scope -continue management as per primary Discussed with Dr. Hanny Ly PGY2 <Andrzej Gamino - Last Filed: 03/29/17 15:23> Objective - Vital Signs/Intake and Output Vital Signs (last 24 hours): Temp Pulse Resp BP Pulse Ox 97.9 F 78 18 163/86 H 98 03/29/17 07:30 03/29/17 11:16 03/29/17 07:30 03/29/17 11:16 03/29/17 07:30 Intake and Output: 03/29/17 03/29/17 06:59 18:59 Intake Total 2060 1120 Output Total 2500 300 Balance -440 820 - Medications Medications: Current Medications Amlodipine Besylate (Norvasc) 5 mg PO DAILY [facility] Last Admin: 03/29/17 11:16 Dose: 5 mg Aspirin (Aspirin Chewable) 81 mg PO DAILY [facility] Last Admin: 03/29/17 11:16 Dose: 81 mg Atorvastatin Calcium (Lipitor) 10 mg PO DIN [facility] Last Admin: 03/28/17 17:11 Dose: 10 mg Betamethasone/Clotrimazole (Lotrisone) 0 ml TOP DAILY [facility] Last Admin: 03/29/17 14:59 Dose: Not Given Bisacodyl (Dulcolax) 10 mg PO ONCE [facility] Stop: 03/29/17 19:01 Collagenase (Santyl) 1 gm TOP DAILY [facility] Last Admin: 03/29/17 14:59 Dose: Not Given Ferrous Sulfate (Feosol) 324 mg PO DAILY [facility] Glipizide (Glucotrol) 10 mg PO 0730,1630 [facility] Last Admin: 03/29/17 08:26 Dose: 10 mg Vancomycin HCl (Vancomycin 1gm) 1 gm in 250 mls @ 167 mls/hr IVPB Q12H [facility] PRN Reason: Protocol Last Admin: 03/29/17 05:32 Dose: 167 mls/hr Insulin Detemir (Levemir) 22 unit SC HS [facility] Insulin Human Regular (Humulin R Low) 0 units SC ACHS [facility] PRN Reason: Protocol Last Admin: 03/29/17 13:00 Dose: 2 units Metformin HCl (Glucophage) 500 mg PO BID [facility] Last Admin: 03/29/17 11:16 Dose: 500 mg Morphine Sulfate (Morphine) 1 mg IVP Q6H PRN PRN Reason: Pain, moderate (4-7) Sertraline HCl (Zoloft) 100 mg PO DAILY [facility] Last Admin: 03/29/17 11:16 Dose: 100 mg Thiamine HCl (Vitamin B1 Tab) 100 mg PO DAILY [facility] Last Admin: 03/29/17 11:16 Dose: 100 mg - Labs Labs: 03/29/17 06:40 03/29/17 06:40 PT 11.7 SECONDS (9.4-12.5) 03/29/17 09:50 INR 1.02 (0.93-1.08) 03/29/17 09:50 APTT 27.2 Seconds (25.1-36.5) 03/29/17 09:50 Attending/Attestation - Attestation I have personally seen and examined this patient.: Yes I have fully participated in the care of the patient.: Yes I have reviewed all pertinent clinical information, including history, physical exam and plan: Yes Notes (Text): 03/29/17 15:22 56 year old female with Paraplegia, HTN, DM, uterine fibroids, Anxiety, Depression, sacral decub s/p diverting colostomy a/w iron deficiency anemia and GI bleeding. 1. Iron deficiency anemia 2. GI bleeding Plan: -recommend egd/colonoscopy tomorrow -clear liquid diet -prep with golytely -npo after mn
[2017-03-29] MEDS: Vancomycin 1gm in NS 250ml 1 GM/250 ML BAG IVPB SCH ×2 (05:32→18:49)
[2017-03-29 07:09] LABS: ALB/GLOB RATIO 0.9 (1.1-1.8); ALBUMIN 3.1 g/dL (3.0-4.8); ALT/SGPT 20 U/L (7-56); AST/SGOT 24 U/L (14-36); BLOOD UREA NITROGEN 10 mg/dL (7-21); CALCIUM 9.5 mg/dL (8.4-10.5); GFR AFRICAN-AMERICAN > 60; GFR NON-AFRICAN AMERICAN > 60
[2017-03-29 07:10] LABS: HEMOGLOBIN 9.2 g/dL (12.0-16.0); MEAN CELL VOLUME 76.2 fl (80.0-105.0); MEAN CORPUSCULAR HEMOGLOBIN 22.8 pg (25.0-35.0); MEAN CORPUSCULAR HGB CONC 29.9 g/dl (31.0-37.0); RBC 4.04 10^6/uL (3.5-6.1); RED CELL DISTRIBUTION WIDTH 17.8 % (11.5-14.5); WHITE BLOOD COUNT 6.4 10^3/ul (4.5-11.0)
--- NOTE | 2017-03-29 08:22 | CP.PCM.PN ---
Subjective - Date & Time of Evaluation Date of Evaluation: 03/29/17 Time of Evaluation: 06:40 - Subjective Subjective: Surgery Progress note. Dr. Coto Pt seen and examined at bedside. No acute events overnight. Denies any F/C. Does report skin irritation around ischial decubitus site. No new complaints. Objective - Vital Signs/Intake and Output Vital Signs (last 24 hours): Temp Pulse Resp BP Pulse Ox 98.6 F 91 H 20 139/75 100 03/29/17 00:00 03/29/17 00:00 03/29/17 00:00 03/29/17 00:00 03/29/17 00:00 Intake and Output: 03/29/17 03/29/17 06:59 18:59 Intake Total 2060 Output Total 2500 Balance -440 - Medications Medications: Current Medications Amlodipine Besylate (Norvasc) 5 mg PO DAILY [facility] Last Admin: 03/28/17 11:40 Dose: 5 mg Aspirin (Aspirin Chewable) 81 mg PO DAILY [facility] Last Admin: 03/28/17 11:39 Dose: 81 mg Atorvastatin Calcium (Lipitor) 10 mg PO DIN [facility] Last Admin: 03/28/17 17:11 Dose: 10 mg Betamethasone/Clotrimazole (Lotrisone) 0 ml TOP DAILY [facility] Collagenase (Santyl) 1 gm TOP DAILY [facility] Glipizide (Glucotrol) 10 mg PO 0730,1630 [facility] Last Admin: 03/28/17 17:19 Dose: 10 mg Vancomycin HCl (Vancomycin 1gm) 1 gm in 250 mls @ 167 mls/hr IVPB Q12H [facility] PRN Reason: Protocol Last Admin: 03/29/17 05:32 Dose: 167 mls/hr Insulin Detemir (Levemir) 20 unit SC HS [facility] Last Admin: 03/28/17 22:23 Dose: Not Given Insulin Human Regular (Humulin R Low) 0 units SC ACHS [facility] PRN Reason: Protocol Last Admin: 03/28/17 22:22 Dose: Not Given Metformin HCl (Glucophage) 500 mg PO BID [facility] Morphine Sulfate (Morphine) 2 mg IVP Q4H PRN PRN Reason: Pain, severe (8-10) Last Admin: 03/29/17 06:36 Dose: 2 mg Morphine Sulfate (Morphine) 1 mg IVP Q6H PRN PRN Reason: Pain, moderate (4-7) Sertraline HCl (Zoloft) 100 mg PO DAILY [facility] Last Admin: 03/28/17 11:39 Dose: 100 mg Thiamine HCl (Vitamin B1 Tab) 100 mg PO DAILY [facility] Last Admin: 03/28/17 11:40 Dose: 100 mg - Labs Labs: 03/29/17 06:40 03/29/17 06:40 - Constitutional Appears: Non-toxic, No Acute Distress - Head Exam Head Exam: ATRAUMATIC, NORMAL INSPECTION, NORMOCEPHALIC - Eye Exam Eye Exam: EOMI - ENT Exam ENT Exam: Mucous Membranes Moist - Respiratory Exam Respiratory Exam: NORMAL BREATHING PATTERN. absent: Accessory Muscle Use, Respiratory Distress - Cardiovascular Exam Cardiovascular Exam: absent: JVD - GI/Abdominal Exam GI & Abdominal Exam: Soft. absent: Distended, Firm, Guarding, Rigid, Tenderness - Extremities Exam Additional comments: Right Ischial Stage IV decub. Dressing with drainage. Mild erythema around skin edges Bilateral lower extremity erythema - Neurological Exam Neurological Exam: Alert, Awake, Oriented x3 Assessment and Plan - Assessment and Plan (Free Text) Assessment: 56yo F with Right Ischial Stage IV decubitus and bilateral lower extremity cellulitis - F/u Wound care recs. - Will place negative pressure wound vac today - Continue Abx as per ID - pain management Further recs as per Dr. Nnamdi Luevano PGY1 surgery pager: [phone]
[2017-03-29] MEDS: Insulin Reg-LOW-Coverage SC SCH ×4 (08:25→23:36)
[2017-03-29] MEDS ORDERED: Potassium Chloride 20 mEq ER Tab PO ONE ×2 (09:25→09:26)
[2017-03-29 11:05] LABS: INR 1.02 (0.93-1.08); PARTIAL THROMBOPLASTIN TIME 27.2 Seconds (25.1-36.5); PROTHROMBIN TIME 11.7 SECONDS (9.4-12.5)
--- NOTE | 2017-03-29 13:27 | PN ---
DATE: SUBJECTIVE: I saw her resting comfortably in bed this morning. The legs are red but not as bad as yesterday. I think the antibiotics are starting to work and the ulcers are little bit better. She is on aspirin, Glucophage, Glucotrol, insulin, Levemir, Lipitor, Lotrisone, morphine, Norvasc, Santyl, vancomycin, vitamin B and Zoloft. She was offered an EGD and a colonoscopy through the colostomy and she has refused. I asked her to please reconsider, she will think about it. PHYSICAL EXAMINATION: VITAL SIGNS: She has 97.9 temperature, 78 pulse, 163/83 blood pressure, 18 respiratory rate, 90% sat on room air. HEENT: Head is atraumatic, normocephalic. She is alert and oriented. Throat is moist and supple. HEART: Regular rate. LUNGS: Decreased breath sounds but clear. ABDOMEN: Soft. Positive colostomy. EXTREMITIES: Are reddened with an ulcer. She is paraplegic from the spinal tumor. LABORATORY DATA: She has a 6.4 white count, 9.2 hemoglobin, it was as high as 13.5 when she came in, 30.8 hematocrit with 353 platelets. She has 138 sodium, potassium is 3.4, we are going to give her potassium rider. She has a BUN of 10, creatinine 0.5, GFR is greater than 60, sugar is 177, calcium 9.5. INR 17, low. I am going to put her on some iron. AST is 24, ALT is 20, alk phos is 123, and urine with many bacteria. ASSESSMENT AND PLAN: So, she has cellulitis, an ulcer, colostomy, urinary tract infection. She has multiple doctors seeing her, Surgery, Infectious Disease, GI, Endocrinology, and we will continue with IV antibiotics. Carlos Enrique Ortiz DO
[2017-03-29] MEDS ORDERED: Peg-Electrolyte Oral Soln 4L (Golytely) PO ONE (14:14)
[2017-03-29] MEDS: Collagenase 250 Units/gm Ointment(30 gm) TOP SCH (14:59)
[2017-03-29] MEDS: Clotrimazole/Betamethasone Lotion(30 ml) TOP SCH (14:59)
--- NOTE | 2017-03-29 15:38 | CP.PCM.PN ---
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 Patient is AAO x 3 and NAD resting comfortably in bed at time of visit. Denies any acute overnight events. Denies new pain. Denies recent N/V/F/C/CP/SOB/D/posterior calf pain Objective - Vital Signs/Intake and Output Vital Signs (last 24 hours): Temp Pulse Resp BP Pulse Ox 97.9 F 78 18 163/86 H 98 03/29/17 07:30 03/29/17 11:16 03/29/17 07:30 03/29/17 11:16 03/29/17 07:30 Intake and Output: 03/29/17 03/29/17 06:59 18:59 Intake Total 2060 1120 Output Total 2500 300 Balance -440 820 - Medications Medications: Current Medications Amlodipine Besylate (Norvasc) 5 mg PO DAILY [facility] Last Admin: 03/29/17 11:16 Dose: 5 mg Aspirin (Aspirin Chewable) 81 mg PO DAILY [facility] Last Admin: 03/29/17 11:16 Dose: 81 mg Atorvastatin Calcium (Lipitor) 10 mg PO DIN [facility] Last Admin: 03/28/17 17:11 Dose: 10 mg Betamethasone/Clotrimazole (Lotrisone) 0 ml TOP DAILY [facility] Last Admin: 03/29/17 14:59 Dose: Not Given Bisacodyl (Dulcolax) 10 mg PO ONCE ONE Stop: 03/29/17 19:01 Collagenase (Santyl) 1 gm TOP DAILY [facility] Last Admin: 03/29/17 14:59 Dose: Not Given Ferrous Sulfate (Feosol) 324 mg PO DAILY [facility] Glipizide (Glucotrol) 10 mg PO 0730,1630 [facility] Last Admin: 03/29/17 08:26 Dose: 10 mg Vancomycin HCl (Vancomycin 1gm) 1 gm in 250 mls @ 167 mls/hr IVPB Q12H [facility] PRN Reason: Protocol Last Admin: 03/29/17 05:32 Dose: 167 mls/hr Insulin Detemir (Levemir) 22 unit SC HS [facility] Insulin Human Regular (Humulin R Low) 0 units SC ACHS [facility] PRN Reason: Protocol Last Admin: 03/29/17 13:00 Dose: 2 units Metformin HCl (Glucophage) 500 mg PO BID [facility] Last Admin: 03/29/17 11:16 Dose: 500 mg Morphine Sulfate (Morphine) 1 mg IVP Q6H PRN PRN Reason: Pain, moderate (4-7) Last Admin: 03/29/17 15:20 Dose: 1 mg Sertraline HCl (Zoloft) 100 mg PO DAILY [facility] Last Admin: 03/29/17 11:16 Dose: 100 mg Thiamine HCl (Vitamin B1 Tab) 100 mg PO DAILY [facility] Last Admin: 03/29/17 11:16 Dose: 100 mg - Labs Labs: 03/29/17 06:40 03/29/17 06:40 PT 11.7 SECONDS (9.4-12.5) 03/29/17 09:50 INR 1.02 (0.93-1.08) 03/29/17 09:50 APTT 27.2 Seconds (25.1-36.5) 03/29/17 09:50 - Constitutional Appears: Well, Non-toxic, No Acute Distress - Extremities Exam Additional comments: LE focused exam: Vasc: DP/PT pulses palpable b/l. Skin temperature elevated to b/l LE. CFT < 3 seconds to all digits b/l. Minimal edema noted to b/l LE Neuro: Epicritic and protective sensation grossly intact b/l. Derm: B/l cellulitic changes noted to legs- stable. Two superficial wounds noted to left leg. Wound #1: Located posterior leg approximately 3 cm x 3 cm with fibrogranular base. No malodor, no purulent drainage, no tracking, tunneling or undermining noted. Wound #2: Located lateral leg approximately 2 cm x 2 cm with fibrogranular base. No malodor, no purulent drainage, no tracking , tunneling or undermining noted MSK: Paraplegia noted to RLE. Minimal POP to wounds. ROM WNL left LE. 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 Brito Afebrile, absent leukocytosis F/u extremity US Continue abx Legs dressed with lotrisone, Optifoam to wounds No plan for surgical intervention at this time Podiatry will continue to follow while patient is in house <Anahy Brito - Last Filed: 04/06/17 16:32> Objective - Vital Signs/Intake and Output Vital Signs (last 24 hours): Temp Pulse Resp BP Pulse Ox 97.4 F L 62 20 135/68 98 04/06/17 08:05 04/06/17 08:05 04/06/17 08:05 04/06/17 08:05 04/06/17 08:05 Intake and Output: 04/06/17 04/06/17 06:59 18:59 Intake Total 540 900 Output Total 1000 Balance -460 900 - Medications Medications: Current Medications Amlodipine Besylate (Norvasc) 5 mg PO DAILY [facility] Last Admin: 04/06/17 10:23 Dose: 5 mg Aspirin (Aspirin Chewable) 81 mg PO DAILY [facility] Last Admin: 04/06/17 10:20 Dose: 81 mg Atorvastatin Calcium (Lipitor) 10 mg PO DIN [facility] Last Admin: 04/05/17 17:51 Dose: 10 mg Betamethasone/Clotrimazole (Lotrisone) 0 ml TOP DAILY [facility] Last Admin: 04/06/17 14:18 Dose: Not Given Collagenase (Santyl) 1 gm TOP DAILY [facility] Last Admin: 04/06/17 10:23 Dose: 1 applic Ferrous Sulfate (Feosol) 324 mg PO DAILY [facility] Last Admin: 04/06/17 10:20 Dose: 324 mg Glipizide (Glucotrol) 5 mg PO 0730,1630 [facility] Last Admin: 04/06/17 08:15 Dose: 5 mg Meropenem (Merrem Iv 1 Gm Premix) 50 mls @ 100 mls/hr IVPB Q8 [facility] Last Admin: 04/06/17 14:17 Dose: 100 mls/hr Insulin Human Regular (Humulin R Low) 0 units SC ACHS [facility] PRN Reason: Protocol Last Admin: 04/06/17 16:29 Dose: Not Given Ketorolac Tromethamine (Toradol) 30 mg IVP Q6H PRN PRN Reason: Pain, moderate (4-7) Last Admin: 04/05/17 13:15 Dose: 30 mg Metformin HCl (Glucophage) 500 mg PO BID [facility] Last Admin: 04/06/17 10:20 Dose: 500 mg Sertraline HCl (Zoloft) 100 mg PO DAILY [facility] Last Admin: 04/06/17 10:20 Dose: 100 mg Thiamine HCl (Vitamin B1 Tab) 100 mg PO DAILY [facility] Last Admin: 04/06/17 10:20 Dose: 100 mg Tramadol HCl (Ultram) 50 mg PO Q8H PRN PRN Reason: Pain, severe (8-10) Last Admin: 04/06/17 14:50 Dose: 50 mg - Labs Labs: 04/05/17 07:00 04/05/17 07:00 PT 11.7 SECONDS (9.4-12.5) 03/29/17 09:50 INR 1.02 (0.93-1.08) 03/29/17 09:50 APTT 27.2 Seconds (25.1-36.5) 03/29/17 09:50 Attending/Attestation - Attestation I have personally seen and examined this patient.: Yes I have fully participated in the care of the patient.: Yes I have reviewed all pertinent clinical information, including history, physical exam and plan: Yes
--- NOTE | 2017-03-29 16:51 | CP.PCM.PN ---
Subjective - Date & Time of Evaluation Date of Evaluation: 03/29/17 Time of Evaluation: 12:50 - Subjective Subjective: Feeling better, no fevers overnight. Objective - Vital Signs/Intake and Output Vital Signs (last 24 hours): Temp Pulse Resp BP Pulse Ox 97.9 F 78 18 163/83 H 98 03/29/17 07:30 03/29/17 07:30 03/29/17 07:30 03/29/17 07:30 03/29/17 07:30 Intake and Output: 03/29/17 03/29/17 06:59 18:59 Intake Total 2060 Output Total 2500 Balance -440 - Medications Medications: Current Medications Amlodipine Besylate (Norvasc) 5 mg PO DAILY [facility] Last Admin: 03/28/17 11:40 Dose: 5 mg Aspirin (Aspirin Chewable) 81 mg PO DAILY [facility] Last Admin: 03/28/17 11:39 Dose: 81 mg Atorvastatin Calcium (Lipitor) 10 mg PO DIN [facility] Last Admin: 03/28/17 17:11 Dose: 10 mg Betamethasone/Clotrimazole (Lotrisone) 0 ml TOP DAILY [facility] Collagenase (Santyl) 1 gm TOP DAILY [facility] Glipizide (Glucotrol) 10 mg PO 0730,1630 [facility] Last Admin: 03/29/17 08:26 Dose: 10 mg Vancomycin HCl (Vancomycin 1gm) 1 gm in 250 mls @ 167 mls/hr IVPB Q12H [facility] PRN Reason: Protocol Last Admin: 03/29/17 05:32 Dose: 167 mls/hr Insulin Detemir (Levemir) 20 unit SC HS [facility] Last Admin: 03/28/17 22:23 Dose: Not Given Insulin Human Regular (Humulin R Low) 0 units SC ACHS [facility] PRN Reason: Protocol Last Admin: 03/29/17 08:25 Dose: 1 units Metformin HCl (Glucophage) 500 mg PO BID [facility] Morphine Sulfate (Morphine) 2 mg IVP Q4H PRN PRN Reason: Pain, severe (8-10) Last Admin: 03/29/17 06:36 Dose: 2 mg Morphine Sulfate (Morphine) 1 mg IVP Q6H PRN PRN Reason: Pain, moderate (4-7) Sertraline HCl (Zoloft) 100 mg PO DAILY [facility] Last Admin: 03/28/17 11:39 Dose: 100 mg Thiamine HCl (Vitamin B1 Tab) 100 mg PO DAILY [facility] Last Admin: 03/28/17 11:40 Dose: 100 mg - Labs Labs: 03/29/17 06:40 03/29/17 06:40 - Constitutional Appears: Non-toxic - Head Exam Head Exam: NORMAL INSPECTION - ENT Exam ENT Exam: Mucous Membranes Moist - Neck Exam Neck Exam: absent: Meningismus - Respiratory Exam Respiratory Exam: Decreased Breath Sounds - Cardiovascular Exam Cardiovascular Exam: +S1, +S2 - GI/Abdominal Exam GI & Abdominal Exam: Soft. absent: Tenderness Assessment and Plan - Assessment and Plan (Free Text) Plan: Assessment bilateral lower extremity cellulitis with left leg ulcers back tumor with paraplegia S/P colostomy indwelling Miguel catheter HTN DM anxiety right sided ischial decubitus ulcer Plan continue Vancomycin day 2 and will follow up blood and wound cx; follow up doppler U/S of lower extremities follow up Sugery plan for the ischial ulcer will continue to monitor clinically will get HIV test
--- NOTE | 2017-03-29 16:55 | PN ---
DATE: ENDOCRINOLOGY FOLLOWUP NOTE LOCATION: Room 566. SUBJECTIVE: This is a 56-year-old with recent uncontrolled type II insulin requiring diabetes, now being followed closely for metabolic management. She also has underlying paraplegia and multiple decubitus in both the sacral and pelvic bone area and currently being treated for lower extremity cellulitis as noted thereof. Her glucose values are fluctuating, but improved, now have range . Her latest chemistry showed BUN of 10, sodium 138, potassium 3.4, chloride 103, CO2 of 26, glucose 182, and creatinine 0.5. So at this time, to allow for dose equilibration, we will continue the same oral hypoglycemic therapy given in combination with glipizide at 10 mg b.i.d. before meals and metformin at 500 mg b.i.d. as ordered. Also, titrate Levemir 22 units p.o. at bedtime daily to start tonight. We will also continue the low-dose correction scale using regular insulin as ordered. We will obtain serial chemistries and supplement accordingly as needed. We will follow with you. Lisa Junior MD
--- NOTE | 2017-03-29 18:15 | CARD ---
APPROVED REPORT EKG Measurement Heart [id number] <Conclusion> Normal sinus rhythm Inferior infarct, age undetermined Abnormal ECG
[2017-03-29] MEDS ORDERED: Bisacodyl 5mg EC Tab PO ONE ×2 (19:00)
[2017-03-29] MEDS ORDERED: Insulin Detemir 100 units/ml Vial (Levemir) SC SCH (22:00)
--- NOTE | 2017-03-29 23:53 | US ---
HISTORY: Leg pain and swelling. Evaluate for DVT PHYSICIAN(S): Jordan Parks MD. TECHNIQUE: Duplex sonography and color-flow Doppler with graded compression were used to evaluate the deep venous systems of both lower extremities. The exam is limited by edema. FINDINGS: The visualized deep venous systems of both lower extremities are sonographically normal and compressible. Normal wave forms and augmentation are seen. There is no sonographic evidence for deep venous thrombosis in the visualized segments of both lower extremities. IMPRESSION: No sonographic evidence for deep venous thrombosis in the visualized segments of both lower extremities.
--- NOTE | 2017-03-29 23:57 | US ---
PROCEDURE: Lower extremity DALTON exam HISTORY: Peripheral vascular disease with pain and ulceration. Diabetes. Previous smoker. PHYSICIAN(S): Jordan Parks MD. FINDINGS: The resting DALTON's are normal: right, 1.13and left, 0.97 The brachial systolic pressures are symmetric. The low thigh pressures and waveforms are relatively normal. The calf PVR waveforms augment normally. No significant gradients are noted across the thighs. The ankle and metatarsal waveforms are relatively normal and symmetric. No significant pressure gradients are noted across the lower legs. IMPRESSION: 1. Normal DALTON and PVR examination at rest.
[2017-03-30] MEDS: Morphine 2 mg/ml ISec IVP PRN ×4 (03:02→23:04)
[2017-03-30] MEDS: Vancomycin 1gm in NS 250ml 1 GM/250 ML BAG IVPB SCH ×2 (05:59→17:38)
[2017-03-30 07:19] LABS: HEMOGLOBIN 9.9 g/dL (12.0-16.0); MEAN CELL VOLUME 76.4 fl (80.0-105.0); MEAN CORPUSCULAR HEMOGLOBIN 22.4 pg (25.0-35.0); MEAN CORPUSCULAR HGB CONC 29.4 g/dl (31.0-37.0); MEAN PLATELET VOLUME 8.9 fl (7.0-11.0); RBC 4.41 10^6/uL (3.5-6.1); RED CELL DISTRIBUTION WIDTH 17.7 % (11.5-14.5); WHITE BLOOD COUNT 5.5 10^3/ul (4.5-11.0)
[2017-03-30 07:32] LABS: ALB/GLOB RATIO 0.9 (1.1-1.8); ALBUMIN 3.3 g/dL (3.0-4.8); ALT/SGPT 15 U/L (7-56); AST/SGOT 27 U/L (14-36); BLOOD UREA NITROGEN 8 mg/dL (7-21); CALCIUM 9.5 mg/dL (8.4-10.5); GFR AFRICAN-AMERICAN > 60; GFR NON-AFRICAN AMERICAN > 60
--- NOTE | 2017-03-30 08:07 | CP.PCM.PN ---
<Lilibeth Ly - Last Filed: 03/30/17 11:06> Subjective - Date & Time of Evaluation Date of Evaluation: 03/30/17 Time of Evaluation: 08:26 - Subjective Subjective: PGY2 Medicine Resident Progress note for GI Patient seen and examined at bedside. Patient refused colonoscopy overnight and demanded a meal- ate 2 sandwiches and crackers at 11pm. Drank 1L of bowel prep. When asked if she would be compliant with EGD she refused as it is her birthday. Patient was afebrile overnight. Ostomy bag has loose brown stool with no signs of blood or melena. Denied any pain at wound vac site. Denied fever, chills, chest pain, SOB, abd pain. Patient is making good UO and has a good appetite. ROS: 12 point review of systems negative except as indicated in HPI Objective - Vital Signs/Intake and Output Vital Signs (last 24 hours): Temp Pulse Resp BP Pulse Ox 98.1 F 71 20 139/73 100 03/30/17 00:00 03/30/17 00:00 03/30/17 00:00 03/30/17 00:00 03/30/17 00:00 Intake and Output: 03/30/17 03/30/17 06:59 18:59 Intake Total 1340 Output Total 2800 Balance -1460 - Medications Medications: Current Medications Amlodipine Besylate (Norvasc) 5 mg PO DAILY [facility] Last Admin: 03/29/17 11:16 Dose: 5 mg Aspirin (Aspirin Chewable) 81 mg PO DAILY [facility] Last Admin: 03/29/17 11:16 Dose: 81 mg Atorvastatin Calcium (Lipitor) 10 mg PO DIN [facility] Last Admin: 03/29/17 17:28 Dose: 10 mg Betamethasone/Clotrimazole (Lotrisone) 0 ml TOP DAILY [facility] Last Admin: 03/29/17 14:59 Dose: Not Given Collagenase (Santyl) 1 gm TOP DAILY [facility] Last Admin: 03/29/17 14:59 Dose: Not Given Ferrous Sulfate (Feosol) 324 mg PO DAILY [facility] Glipizide (Glucotrol) 10 mg PO 0730,1630 [facility] Last Admin: 03/29/17 17:28 Dose: 10 mg Vancomycin HCl (Vancomycin 1gm) 1 gm in 250 mls @ 167 mls/hr IVPB Q12H [facility] PRN Reason: Protocol Last Admin: 03/30/17 05:59 Dose: 167 mls/hr Insulin Detemir (Levemir) 22 unit SC HS [facility] Last Admin: 03/30/17 00:19 Dose: 22 unit Insulin Human Regular (Humulin R Low) 0 units SC ACHS [facility] PRN Reason: Protocol Last Admin: 03/29/17 23:36 Dose: Not Given Metformin HCl (Glucophage) 500 mg PO BID [facility] Last Admin: 03/29/17 18:49 Dose: 500 mg Morphine Sulfate (Morphine) 1 mg IVP Q6H PRN PRN Reason: Pain, moderate (4-7) Last Admin: 03/30/17 03:02 Dose: 1 mg Sertraline HCl (Zoloft) 100 mg PO DAILY [facility] Last Admin: 03/29/17 11:16 Dose: 100 mg Thiamine HCl (Vitamin B1 Tab) 100 mg PO DAILY [facility] Last Admin: 03/29/17 11:16 Dose: 100 mg - Labs Labs: 03/30/17 06:15 03/30/17 06:15 PT 11.7 SECONDS (9.4-12.5) 03/29/17 09:50 INR 1.02 (0.93-1.08) 03/29/17 09:50 APTT 27.2 Seconds (25.1-36.5) 03/29/17 09:50 - Constitutional Appears: Unkempt, Chronically Ill - Head Exam Head Exam: ATRAUMATIC, NORMAL INSPECTION, NORMOCEPHALIC - Eye Exam Eye Exam: EOMI, Normal appearance. absent: Conjunctival injection, Scleral icterus - ENT Exam ENT Exam: Mucous Membranes Moist - Respiratory Exam Respiratory Exam: Clear to Ausculation Bilateral. absent: Accessory Muscle Use , Rales, Rhonchi, Wheezes, Respiratory Distress - Cardiovascular Exam Cardiovascular Exam: REGULAR RHYTHM, RRR, +S1, +S2. absent: Murmur - GI/Abdominal Exam GI & Abdominal Exam: Soft, Normal Bowel Sounds Additional comments: colostomy in place, bag with no leaks. 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 iron deficiency anemia 2. R ischial stage IV decubitus 3. b/l LE cellulitis Plan: -Hgb stable and no overt bleeding noted -Iron studies: Iron: 17 TIBC: 254 %sat: 7 Transferrin 197.39 Ferritin: 23.4 -Patient refusing colonoscopy and EGD. Has been counseled extensively on need for outpatient GI follow up and scope GI will sign off at this time Discussed with Dr. Mark Ly PGY2 <Homer Flores - Last Filed: 03/30/17 11:50> Objective - Vital Signs/Intake and Output Vital Signs (last 24 hours): Temp Pulse Resp BP Pulse Ox 97.8 F 76 20 148/77 100 03/30/17 07:30 03/30/17 10:44 03/30/17 07:30 03/30/17 10:44 03/30/17 07:30 Intake and Output: 03/30/17 03/30/17 06:59 18:59 Intake Total 1340 Output Total 2800 Balance -1460 - Medications Medications: Current Medications Amlodipine Besylate (Norvasc) 5 mg PO DAILY [facility] Last Admin: 03/30/17 10:44 Dose: 5 mg Aspirin (Aspirin Chewable) 81 mg PO DAILY [facility] Last Admin: 03/30/17 10:44 Dose: 81 mg Atorvastatin Calcium (Lipitor) 10 mg PO DIN [facility] Last Admin: 03/29/17 17:28 Dose: 10 mg Betamethasone/Clotrimazole (Lotrisone) 0 ml TOP DAILY [facility] Last Admin: 03/30/17 11:43 Dose: Not Given Collagenase (Santyl) 1 gm TOP DAILY [facility] Last Admin: 03/30/17 11:43 Dose: Not Given Ferrous Sulfate (Feosol) 324 mg PO DAILY [facility] Last Admin: 03/30/17 10:45 Dose: 324 mg Glipizide (Glucotrol) 10 mg PO 0730,1630 [facility] Last Admin: 03/30/17 10:44 Dose: 10 mg Vancomycin HCl (Vancomycin 1gm) 1 gm in 250 mls @ 167 mls/hr IVPB Q12H [facility] PRN Reason: Protocol Last Admin: 03/30/17 05:59 Dose: 167 mls/hr Meropenem (Merrem Iv 1 Gm Premix) 50 mls @ 100 mls/hr IVPB Q8 [facility] Insulin Detemir (Levemir) 22 unit SC HS [facility] Last Admin: 03/30/17 00:19 Dose: 22 unit Insulin Human Regular (Humulin R Low) 0 units SC ACHS [facility] PRN Reason: Protocol Last Admin: 03/30/17 11:41 Dose: Not Given Metformin HCl (Glucophage) 500 mg PO BID [facility] Last Admin: 03/30/17 10:44 Dose: 500 mg Morphine Sulfate (Morphine) 1 mg IVP Q6H PRN PRN Reason: Pain, moderate (4-7) Last Admin: 03/30/17 11:07 Dose: 1 mg Sertraline HCl (Zoloft) 100 mg PO DAILY [facility] Last Admin: 03/30/17 10:44 Dose: 100 mg Thiamine HCl (Vitamin B1 Tab) 100 mg PO DAILY [facility] Last Admin: 03/30/17 10:44 Dose: 100 mg - Labs Labs: 03/30/17 06:15 03/30/17 06:15 PT 11.7 SECONDS (9.4-12.5) 03/29/17 09:50 INR 1.02 (0.93-1.08) 03/29/17 09:50 APTT 27.2 Seconds (25.1-36.5) 03/29/17 09:50 Attending/Attestation - Attestation I have personally seen and examined this patient.: Yes I have fully participated in the care of the patient.: Yes I have reviewed all pertinent clinical information, including history, physical exam and plan: Yes Notes (Text): 03/30/17 11:45 I have seen and examined patient with medical illustrator. No acute events overnight, she is seen resting in bed comfortably. She denies abdominal pain, nausea, vomiting, fever/chills. She was scheduled to undergo EGD/colonoscopy today, however after consuming the bowel preparation yesterday she changed her mind. She is tolerating PO diet without difficulty. Liquid brown stool noted in ostomy bag. Review of vitals from today are normal. DM / HTN Depression Paraplegia secondary to back tumor Cellulitis Stage IV sacral decubitus ulcer s/p diverting ostomy at [facility] [place] - Diet as tolerated - H/H stable, continue to monitor, no overt bleeding noted - Continue with wound care as per medical team - Continue with antibiotic therapy - Patient would eventually benefit from endoscopic evaluation, though she prefers to defer procedure at this time. Risks of this strategy explained to patient in detail, she understands and is willing to accept risks. No further planned GI intervention, will sign off case. Suggest outpatient follow up, please reconsult as necessary, thank you.
--- NOTE | 2017-03-30 08:14 | CP.PCM.PN ---
Subjective - Date & Time of Evaluation Date of Evaluation: 03/30/17 Time of Evaluation: 07:00 - Subjective Subjective: Surgery: Dr. Coto Pt seen and examined. No acute overnight events. Pt states she is feeling ok and denies any pain around the wound vac as she has previously experienced in the past. Denies F/C, N/V. Objective - Vital Signs/Intake and Output Vital Signs (last 24 hours): Temp Pulse Resp BP Pulse Ox 97.8 F 76 20 148/77 100 03/30/17 07:30 03/30/17 07:30 03/30/17 07:30 03/30/17 07:30 03/30/17 07:30 Intake and Output: 03/30/17 03/30/17 06:59 18:59 Intake Total 1340 Output Total 2800 Balance -1460 - Medications Medications: Current Medications Amlodipine Besylate (Norvasc) 5 mg PO DAILY [facility] Last Admin: 03/29/17 11:16 Dose: 5 mg Aspirin (Aspirin Chewable) 81 mg PO DAILY [facility] Last Admin: 03/29/17 11:16 Dose: 81 mg Atorvastatin Calcium (Lipitor) 10 mg PO DIN [facility] Last Admin: 03/29/17 17:28 Dose: 10 mg Betamethasone/Clotrimazole (Lotrisone) 0 ml TOP DAILY [facility] Last Admin: 03/29/17 14:59 Dose: Not Given Collagenase (Santyl) 1 gm TOP DAILY [facility] Last Admin: 03/29/17 14:59 Dose: Not Given Ferrous Sulfate (Feosol) 324 mg PO DAILY [facility] Glipizide (Glucotrol) 10 mg PO 0730,1630 [facility] Last Admin: 03/29/17 17:28 Dose: 10 mg Vancomycin HCl (Vancomycin 1gm) 1 gm in 250 mls @ 167 mls/hr IVPB Q12H [facility] PRN Reason: Protocol Last Admin: 03/30/17 05:59 Dose: 167 mls/hr Insulin Detemir (Levemir) 22 unit SC HS [facility] Last Admin: 03/30/17 00:19 Dose: 22 unit Insulin Human Regular (Humulin R Low) 0 units SC ACHS [facility] PRN Reason: Protocol Last Admin: 03/29/17 23:36 Dose: Not Given Metformin HCl (Glucophage) 500 mg PO BID [facility] Last Admin: 03/29/17 18:49 Dose: 500 mg Morphine Sulfate (Morphine) 1 mg IVP Q6H PRN PRN Reason: Pain, moderate (4-7) Last Admin: 03/30/17 03:02 Dose: 1 mg Sertraline HCl (Zoloft) 100 mg PO DAILY [facility] Last Admin: 03/29/17 11:16 Dose: 100 mg Thiamine HCl (Vitamin B1 Tab) 100 mg PO DAILY [facility] Last Admin: 03/29/17 11:16 Dose: 100 mg - Labs Labs: 03/30/17 06:15 03/30/17 06:15 PT 11.7 SECONDS (9.4-12.5) 03/29/17 09:50 INR 1.02 (0.93-1.08) 03/29/17 09:50 APTT 27.2 Seconds (25.1-36.5) 03/29/17 09:50 - Constitutional Appears: Well, No Acute Distress - Eye Exam Eye Exam: Normal appearance - ENT Exam ENT Exam: Mucous Membranes Moist - Respiratory Exam Respiratory Exam: NORMAL BREATHING PATTERN - Cardiovascular Exam Cardiovascular Exam: RRR - GI/Abdominal Exam GI & Abdominal Exam: Soft. absent: Tenderness Additional comments: ostomy in place - Extremities Exam Additional comments: R lateral hip with wound vac in place - Neurological Exam Neurological Exam: Alert, Awake, Oriented x3 - Skin Skin Exam: Dry, Warm Assessment and Plan - Assessment and Plan (Free Text) Assessment: R lateral hip wound s/p wound vac placement Plan: - next vac change on Sunday 04/02 - d/w Dr. Nnamdi Everett, PGY-3 Surgery
[2017-03-30] MEDS: Insulin Reg-LOW-Coverage SC SCH ×4 (09:07→21:16)
[2017-03-30] MEDS: Clotrimazole/Betamethasone Lotion(30 ml) TOP SCH (11:43)
[2017-03-30] MEDS: Collagenase 250 Units/gm Ointment(30 gm) TOP SCH (11:43)
--- NOTE | 2017-03-30 12:41 | PN ---
DATE: 03/30/2017 SUBJECTIVE: I saw her resting comfortably in bed. She has a wound VAC on her hip decubitus ulcer. The legs are still little bit red, may be not as bad as when she came in, but she is comfortable. There is no pain. She is eating. Colostomy is working. PHYSICAL EXAMINATION: VITAL SIGNS: She has a 97.8 temp, 76 pulse, 148/77 blood pressure, 20 respiratory rate, and 100% O2 saturation on room air. HEENT: Head is atraumatic, normocephalic. HEART: Regular rate. LUNGS: Clear to auscultation. ABDOMEN: Soft. Positive colostomy. EXTREMITIES: Trace edema. There is some redness, but not as aggressive as it was when she came in. There are some ulcers on the legs and also a hip ulcer that has a wound VAC on right now. LABORATORY DATA: She has a 5.5 white count, 9.9 hemoglobin, 32.7 hematocrit with 261 platelets. She has 138 sodium, potassium 3.9, BUN is 8, creatinine 0.5, GFR is greater than 60, sugar is 89, calcium is 9.5, total bilirubin is 0.2, AST is 27, ALT is 50, alkaline phosphatase is 116. Total protein is 6.8. MEDICATIONS: She is currently on aspirin, Feosol, Glucophage, Glucotrol, insulin coverage, Levemir, Lipitor, Lotrisone, morphine, Norvasc, Collagenase, vancomycin IV, vitamin B1 and Zoloft. ASSESSMENT AND PLAN: She also had a urinary tract infection that she is being treated for. She has bilateral leg cellulitis. She has a colostomy, urinary tract infection. 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 She has a colostomy, little anemia, diabetes. Continue IV antibiotics and treatment as per Surgery and Infectious Disease. We will check her laboratories tomorrow. Carlos Enrique Ortiz DO
[2017-03-30] MEDS: Meropenem IV 1 gm in NS 50 ML IVPB SCH ×2 (13:00→21:19)
[2017-03-30] MEDS ORDERED: Meropenem 1 GM in Dextrose 5% In Water 100 ML IVPB SCH (14:00)
--- NOTE | 2017-03-30 14:31 | CP.PCM.PN ---
Subjective - Date & Time of Evaluation Date of Evaluation: 03/30/17 Time of Evaluation: 12:20 - Subjective Subjective: Comfortable, still with pain in the legs but a little better, no fevers. Objective - Vital Signs/Intake and Output Vital Signs (last 24 hours): Temp Pulse Resp BP Pulse Ox 97.8 F 76 20 148/77 100 03/30/17 07:30 03/30/17 07:30 03/30/17 07:30 03/30/17 07:30 03/30/17 07:30 Intake and Output: 03/30/17 03/30/17 06:59 18:59 Intake Total 1340 Output Total 2800 Balance -1460 - Medications Medications: Current Medications Amlodipine Besylate (Norvasc) 5 mg PO DAILY [facility] Last Admin: 03/29/17 11:16 Dose: 5 mg Aspirin (Aspirin Chewable) 81 mg PO DAILY [facility] Last Admin: 03/29/17 11:16 Dose: 81 mg Atorvastatin Calcium (Lipitor) 10 mg PO DIN [facility] Last Admin: 03/29/17 17:28 Dose: 10 mg Betamethasone/Clotrimazole (Lotrisone) 0 ml TOP DAILY [facility] Last Admin: 03/29/17 14:59 Dose: Not Given Collagenase (Santyl) 1 gm TOP DAILY [facility] Last Admin: 03/29/17 14:59 Dose: Not Given Ferrous Sulfate (Feosol) 324 mg PO DAILY [facility] Glipizide (Glucotrol) 10 mg PO 0730,1630 [facility] Last Admin: 03/29/17 17:28 Dose: 10 mg Vancomycin HCl (Vancomycin 1gm) 1 gm in 250 mls @ 167 mls/hr IVPB Q12H [facility] PRN Reason: Protocol Last Admin: 03/30/17 05:59 Dose: 167 mls/hr Meropenem 1 gm/ Dextrose 100 mls @ 100 mls/hr IVPB Q8 [facility] PRN Reason: Protocol Stop: 04/06/17 14:01 Insulin Detemir (Levemir) 22 unit SC HS [facility] Last Admin: 03/30/17 00:19 Dose: 22 unit Insulin Human Regular (Humulin R Low) 0 units SC ACHS [facility] PRN Reason: Protocol Last Admin: 03/30/17 09:07 Dose: Not Given Metformin HCl (Glucophage) 500 mg PO BID [facility] Last Admin: 03/29/17 18:49 Dose: 500 mg Morphine Sulfate (Morphine) 1 mg IVP Q6H PRN PRN Reason: Pain, moderate (4-7) Last Admin: 03/30/17 03:02 Dose: 1 mg Sertraline HCl (Zoloft) 100 mg PO DAILY [facility] Last Admin: 03/29/17 11:16 Dose: 100 mg Thiamine HCl (Vitamin B1 Tab) 100 mg PO DAILY [facility] Last Admin: 03/29/17 11:16 Dose: 100 mg - Labs Labs: 03/30/17 06:15 03/30/17 06:15 PT 11.7 SECONDS (9.4-12.5) 03/29/17 09:50 INR 1.02 (0.93-1.08) 03/29/17 09:50 APTT 27.2 Seconds (25.1-36.5) 03/29/17 09:50 - Constitutional Appears: Chronically Ill - Head Exam Head Exam: NORMAL INSPECTION - ENT Exam ENT Exam: Mucous Membranes Moist - Neck Exam Neck Exam: absent: Meningismus - Respiratory Exam Respiratory Exam: Decreased Breath Sounds - Cardiovascular Exam Cardiovascular Exam: +S1, +S2 - GI/Abdominal Exam GI & Abdominal Exam: Soft. absent: Tenderness - Extremities Exam Additional comments: both legs with dressings in place; right hip decubitus ulcer with dressings in place Assessment and Plan - Assessment and Plan (Free Text) Plan: Assessment bilateral lower extremity cellulitis with left leg ulcers back tumor with paraplegia S/P colostomy indwelling Miguel catheter HTN DM anxiety right sided ischial decubitus ulcer Plan continue Vancomycin day 3 and Merrem; follow up wound cx; blood cx are negativefollow up doppler U/S of lower extremities follow up Sugery plan for the ischial ulcer will continue to monitor clinically follow up HIV test results
--- NOTE | 2017-03-30 14:57 | PN ---
DATE: ENDO FOLLOWUP NOTE LOCATION: In room 571. SUBJECTIVE: This is a 56-year-old female with recent uncontrolled type 2 insulin-requiring diabetes with recent hyperglycemic accelerations and is now being followed closely for metabolic management. She presented here with bilateral lower extremity cellulitis as noted thereof. She is also receiving concurrent IV antibiotics and local debridement as noted. Her glycemic levels are fluctuating, but improved and the latest glucose levels have ranged from 82-166 and 199 mg/dL. The latest chemistry showed BUN of 8, sodium 138, potassium 3.9, chloride 103, CO2 28, glucose 89, and creatinine 0.5. So at this time, we will modify once again her basal insulin and lower the Levemir to 16 units subcu at bedtime daily to start tonight. We will also continue the dual oral hypoglycemic drug therapy as given with metformin given as 500 mg b.i.d. and glipizide given as 10 mg b.i.d. before meals as ordered. We will titrate incrementally as indicated to optimize metabolic control. We will follow and advice accordingly. Lisa Junior MD
--- NOTE | 2017-03-30 18:24 | CP.PCM.PN ---
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 Patient is AAO x 3 and NAD resting comfortably in bed at time of visit. Denies any acute overnight events. Denies new pain. Denies recent N/V/F/C/CP/SOB/D/ posterior calf pain Objective - Vital Signs/Intake and Output Vital Signs (last 24 hours): Temp Pulse Resp BP Pulse Ox 97.8 F 76 20 148/77 100 03/30/17 07:30 03/30/17 10:44 03/30/17 07:30 03/30/17 10:44 03/30/17 07:30 Intake and Output: 03/30/17 03/30/17 06:59 18:59 Intake Total 1340 480 Output Total 2800 500 Balance -1460 -20 - Medications Medications: Current Medications Amlodipine Besylate (Norvasc) 5 mg PO DAILY [facility] Last Admin: 03/30/17 10:44 Dose: 5 mg Aspirin (Aspirin Chewable) 81 mg PO DAILY [facility] Last Admin: 03/30/17 10:44 Dose: 81 mg Atorvastatin Calcium (Lipitor) 10 mg PO DIN [facility] Last Admin: 03/30/17 17:01 Dose: 10 mg Betamethasone/Clotrimazole (Lotrisone) 0 ml TOP DAILY [facility] Last Admin: 03/30/17 11:43 Dose: Not Given Collagenase (Santyl) 1 gm TOP DAILY [facility] Last Admin: 03/30/17 11:43 Dose: Not Given Ferrous Sulfate (Feosol) 324 mg PO DAILY [facility] Last Admin: 03/30/17 10:45 Dose: 324 mg Glipizide (Glucotrol) 10 mg PO 0730,1630 [facility] Last Admin: 03/30/17 16:37 Dose: Not Given Vancomycin HCl (Vancomycin 1gm) 1 gm in 250 mls @ 167 mls/hr IVPB Q12H [facility] PRN Reason: Protocol Last Admin: 03/30/17 17:38 Dose: 167 mls/hr Meropenem (Merrem Iv 1 Gm Premix) 50 mls @ 100 mls/hr IVPB Q8 [facility] Last Admin: 03/30/17 13:00 Dose: 100 mls/hr Insulin Detemir (Levemir) 16 unit SC HS [facility] Insulin Human Regular (Humulin R Low) 0 units SC ACHS [facility] PRN Reason: Protocol Last Admin: 03/30/17 16:37 Dose: Not Given Metformin HCl (Glucophage) 500 mg PO BID [facility] Last Admin: 03/30/17 17:01 Dose: 500 mg Morphine Sulfate (Morphine) 1 mg IVP Q6H PRN PRN Reason: Pain, moderate (4-7) Last Admin: 03/30/17 17:01 Dose: 1 mg Sertraline HCl (Zoloft) 100 mg PO DAILY [facility] Last Admin: 03/30/17 10:44 Dose: 100 mg Thiamine HCl (Vitamin B1 Tab) 100 mg PO DAILY [facility] Last Admin: 03/30/17 10:44 Dose: 100 mg - Labs Labs: 03/30/17 06:15 03/30/17 06:15 PT 11.7 SECONDS (9.4-12.5) 03/29/17 09:50 INR 1.02 (0.93-1.08) 03/29/17 09:50 APTT 27.2 Seconds (25.1-36.5) 03/29/17 09:50 - Constitutional Appears: Well, Non-toxic, No Acute Distress - Extremities Exam Additional comments: LE focused exam: Vasc: DP/PT pulses palpable b/l. Skin temperature elevated to b/l LE. CFT < 3 seconds to all digits b/l. Minimal edema noted to b/l LE Neuro: Epicritic and protective sensation grossly intact b/l. Derm: B/l cellulitic changes noted to legs- stable. Two superficial wounds noted to left leg. Wound #1: Located posterior leg approximately 3 cm x 3 cm with fibrogranular base. No malodor, no purulent drainage, no tracking, tunneling or undermining noted. Wound #2: Located lateral leg approximately 2 cm x 2 cm with fibrogranular base. No malodor, no purulent drainage, no tracking , tunneling or undermining noted. Wounds and cellulitis slowly improving MSK: Paraplegia noted to RLE. Minimal POP to wounds. ROM WNL left LE. 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 Jenkins Afebrile, absent leukocytosis Continue abx No evidence of DVT Normal DALTON and PVR at rest Wounds dressed with optifoam, legs lathered in lotrisone Podiatry will continue to follow while patient is in house <Bhavik Jenkins - Last Filed: 03/31/17 08:31> Objective - Vital Signs/Intake and Output Vital Signs (last 24 hours): Temp Pulse Resp BP Pulse Ox 97.8 F 76 20 148/77 100 03/30/17 07:30 03/30/17 10:44 03/30/17 07:30 03/30/17 10:44 03/30/17 07:30 Intake and Output: 03/31/17 03/31/17 06:59 18:59 Intake Total 900 Output Total 2100 Balance -1200 - Medications Medications: Current Medications Amlodipine Besylate (Norvasc) 5 mg PO DAILY [facility] Last Admin: 03/30/17 10:44 Dose: 5 mg Aspirin (Aspirin Chewable) 81 mg PO DAILY [facility] Last Admin: 03/30/17 10:44 Dose: 81 mg Atorvastatin Calcium (Lipitor) 10 mg PO DIN [facility] Last Admin: 03/30/17 17:01 Dose: 10 mg Betamethasone/Clotrimazole (Lotrisone) 0 ml TOP DAILY [facility] Last Admin: 03/30/17 11:43 Dose: Not Given Collagenase (Santyl) 1 gm TOP DAILY [facility] Last Admin: 03/30/17 11:43 Dose: Not Given Ferrous Sulfate (Feosol) 324 mg PO DAILY [facility] Last Admin: 03/30/17 10:45 Dose: 324 mg Glipizide (Glucotrol) 10 mg PO 0730,1630 [facility] Last Admin: 03/30/17 16:37 Dose: Not Given Vancomycin HCl (Vancomycin 1gm) 1 gm in 250 mls @ 167 mls/hr IVPB Q12H [facility] PRN Reason: Protocol Last Admin: 03/31/17 05:30 Dose: 167 mls/hr Meropenem (Merrem Iv 1 Gm Premix) 50 mls @ 100 mls/hr IVPB Q8 [facility] Last Admin: 03/31/17 05:22 Dose: 100 mls/hr Insulin Detemir (Levemir) 16 unit SC HS [facility] Last Admin: 03/30/17 21:21 Dose: 16 unit Insulin Human Regular (Humulin R Low) 0 units SC ACHS [facility] PRN Reason: Protocol Last Admin: 03/30/17 21:16 Dose: Not Given Metformin HCl (Glucophage) 500 mg PO BID [facility] Last Admin: 03/30/17 17:01 Dose: 500 mg Morphine Sulfate (Morphine) 1 mg IVP Q6H PRN PRN Reason: Pain, moderate (4-7) Last Admin: 03/31/17 05:19 Dose: 1 mg Sertraline HCl (Zoloft) 100 mg PO DAILY [facility] Last Admin: 03/30/17 10:44 Dose: 100 mg Thiamine HCl (Vitamin B1 Tab) 100 mg PO DAILY [facility] Last Admin: 03/30/17 10:44 Dose: 100 mg - Labs Labs: 03/31/17 07:00 03/31/17 07:00 PT 11.7 SECONDS (9.4-12.5) 03/29/17 09:50 INR 1.02 (0.93-1.08) 03/29/17 09:50 APTT 27.2 Seconds (25.1-36.5) 03/29/17 09:50 Attending/Attestation - Attestation I have personally seen and examined this patient.: Yes I have fully participated in the care of the patient.: Yes I have reviewed all pertinent clinical information, including history, physical exam and plan: Yes
[2017-03-30] MEDS: Insulin Detemir 100 units/ml Vial (Levemir) SC SCH (21:21)
[2017-03-31] MEDS: Morphine 2 mg/ml ISec IVP PRN ×4 (05:19→23:12)
[2017-03-31] MEDS: Meropenem IV 1 gm in NS 50 ML IVPB SCH ×3 (05:22→22:59)
[2017-03-31] MEDS: Vancomycin 1gm in NS 250ml 1 GM/250 ML BAG IVPB SCH (05:30)
[2017-03-31 07:37] LABS: HEMOGLOBIN 9.5 g/dL (12.0-16.0); MEAN CELL VOLUME 75.7 fl (80.0-105.0); MEAN CORPUSCULAR HEMOGLOBIN 22.5 pg (25.0-35.0); MEAN CORPUSCULAR HGB CONC 29.7 g/dl (31.0-37.0); MEAN PLATELET VOLUME 8.8 fl (7.0-11.0); RBC 4.23 10^6/uL (3.5-6.1); RED CELL DISTRIBUTION WIDTH 17.7 % (11.5-14.5); WHITE BLOOD COUNT 5.9 10^3/ul (4.5-11.0)
[2017-03-31 07:48] LABS: ALBUMIN 3.2 g/dL (3.0-4.8); ALT/SGPT 21 U/L (7-56); AST/SGOT 26 U/L (14-36); BLOOD UREA NITROGEN 12 mg/dL (7-21); CALCIUM 9.5 mg/dL (8.4-10.5); GFR AFRICAN-AMERICAN > 60; GFR NON-AFRICAN AMERICAN > 60
[2017-03-31] MEDS: Insulin Reg-LOW-Coverage SC SCH ×4 (08:00→23:00)
[2017-03-31] MEDS: Clotrimazole/Betamethasone Lotion(30 ml) TOP SCH (10:50)
[2017-03-31] MEDS: Collagenase 250 Units/gm Ointment(30 gm) TOP SCH (10:51)
--- NOTE | 2017-03-31 10:52 | CP.PCM.PN ---
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 Patient is AAO x 3 and NAD resting comfortably in bed at time of visit. Denies any acute overnight events. Denies new pain. Denies recent N/V/F/C/CP/SOB/D/ posterior calf pain Objective - Vital Signs/Intake and Output Vital Signs (last 24 hours): Temp Pulse Resp BP Pulse Ox 98 F 79 20 131/71 96 03/31/17 08:50 03/31/17 08:50 03/31/17 08:50 03/31/17 08:50 03/31/17 08:50 Intake and Output: 03/31/17 03/31/17 06:59 18:59 Intake Total 900 Output Total 2100 Balance -1200 - Medications Medications: Current Medications Amlodipine Besylate (Norvasc) 5 mg PO DAILY [facility] Last Admin: 03/30/17 10:44 Dose: 5 mg Aspirin (Aspirin Chewable) 81 mg PO DAILY [facility] Last Admin: 03/30/17 10:44 Dose: 81 mg Atorvastatin Calcium (Lipitor) 10 mg PO DIN [facility] Last Admin: 03/30/17 17:01 Dose: 10 mg Betamethasone/Clotrimazole (Lotrisone) 0 ml TOP DAILY [facility] Last Admin: 03/30/17 11:43 Dose: Not Given Collagenase (Santyl) 1 gm TOP DAILY [facility] Last Admin: 03/30/17 11:43 Dose: Not Given Ferrous Sulfate (Feosol) 324 mg PO DAILY [facility] Last Admin: 03/30/17 10:45 Dose: 324 mg Glipizide (Glucotrol) 10 mg PO 0730,1630 [facility] Last Admin: 03/30/17 16:37 Dose: Not Given Vancomycin HCl (Vancomycin 1gm) 1 gm in 250 mls @ 167 mls/hr IVPB Q12H [facility] PRN Reason: Protocol Last Admin: 03/31/17 05:30 Dose: 167 mls/hr Meropenem (Merrem Iv 1 Gm Premix) 50 mls @ 100 mls/hr IVPB Q8 [facility] Last Admin: 03/31/17 05:22 Dose: 100 mls/hr Insulin Detemir (Levemir) 16 unit SC HS [facility] Last Admin: 03/30/17 21:21 Dose: 16 unit Insulin Human Regular (Humulin R Low) 0 units SC ACHS [facility] PRN Reason: Protocol Last Admin: 03/30/17 21:16 Dose: Not Given Metformin HCl (Glucophage) 500 mg PO BID [facility] Last Admin: 03/30/17 17:01 Dose: 500 mg Morphine Sulfate (Morphine) 1 mg IVP Q6H PRN PRN Reason: Pain, moderate (4-7) Last Admin: 03/31/17 05:19 Dose: 1 mg Sertraline HCl (Zoloft) 100 mg PO DAILY [facility] Last Admin: 03/30/17 10:44 Dose: 100 mg Thiamine HCl (Vitamin B1 Tab) 100 mg PO DAILY [facility] Last Admin: 03/30/17 10:44 Dose: 100 mg - Labs Labs: 03/31/17 07:00 03/31/17 07:00 PT 11.7 SECONDS (9.4-12.5) 03/29/17 09:50 INR 1.02 (0.93-1.08) 03/29/17 09:50 APTT 27.2 Seconds (25.1-36.5) 03/29/17 09:50 - Constitutional Appears: Well, Non-toxic, No Acute Distress - Extremities Exam Additional comments: LE focused exam: Vasc: DP/PT pulses palpable b/l. Skin temperature elevated to b/l LE. CFT < 3 seconds to all digits b/l. Minimal edema noted to b/l LE Neuro: Epicritic and protective sensation grossly intact b/l. Derm: B/l cellulitic changes noted to legs- stable. Two superficial wounds noted to left leg. Wound #1: Located posterior leg approximately 3 cm x 3 cm with fibrogranular base. No malodor, no purulent drainage, no tracking, tunneling or undermining noted. Wound #2: Located lateral leg approximately 2 cm x 2 cm with fibrogranular base. No malodor, no purulent drainage, no tracking , tunneling or undermining noted. Wounds and cellulitis slowly improving MSK: Paraplegia noted to RLE. Minimal POP to wounds. ROM WNL left LE. 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 Jenkins Afebrile, absent leukocytosis Continue abx No evidence of DVT Normal DALTON and PVR at rest Wounds dressed with optifoam, legs lathered in lotrisone Podiatry will continue to follow while patient is in house <Bhavik Jenkins - Last Filed: 04/03/17 12:06> Objective - Vital Signs/Intake and Output Vital Signs (last 24 hours): Temp Pulse Resp BP Pulse Ox 97.8 F 78 20 148/78 98 04/03/17 08:00 04/03/17 10:12 04/03/17 08:00 04/03/17 10:12 04/03/17 08:00 Intake and Output: 04/03/17 04/03/17 06:59 18:59 Intake Total 480 Output Total 600 Balance -120 - Medications Medications: Current Medications Amlodipine Besylate (Norvasc) 5 mg PO DAILY [facility] Last Admin: 04/03/17 10:12 Dose: 5 mg Aspirin (Aspirin Chewable) 81 mg PO DAILY [facility] Last Admin: 04/03/17 10:12 Dose: 81 mg Atorvastatin Calcium (Lipitor) 10 mg PO DIN [facility] Last Admin: 04/02/17 16:07 Dose: 10 mg Betamethasone/Clotrimazole (Lotrisone) 0 ml TOP DAILY [facility] Last Admin: 04/03/17 10:14 Dose: 1 applic Collagenase (Santyl) 1 gm TOP DAILY [facility] Last Admin: 04/03/17 10:14 Dose: 1 applic Ferrous Sulfate (Feosol) 324 mg PO DAILY [facility] Last Admin: 04/03/17 10:12 Dose: 324 mg Glipizide (Glucotrol) 10 mg PO 0730,1630 [facility] Last Admin: 04/03/17 08:17 Dose: Not Given Meropenem (Merrem Iv 1 Gm Premix) 50 mls @ 100 mls/hr IVPB Q8 [facility] Last Admin: 04/03/17 05:54 Dose: 100 mls/hr Insulin Human Regular (Humulin R Low) 0 units SC ACHS [facility] PRN Reason: Protocol Last Admin: 04/03/17 08:17 Dose: Not Given Metformin HCl (Glucophage) 500 mg PO BID [facility] Last Admin: 04/03/17 10:12 Dose: 500 mg Morphine Sulfate (Morphine) 1 mg IVP Q6H PRN PRN Reason: Pain, moderate (4-7) Last Admin: 04/03/17 04:27 Dose: 1 mg Sertraline HCl (Zoloft) 100 mg PO DAILY [facility] Last Admin: 04/03/17 10:12 Dose: 100 mg Thiamine HCl (Vitamin B1 Tab) 100 mg PO DAILY [facility] Last Admin: 04/03/17 10:12 Dose: 100 mg - Labs Labs: 04/01/17 06:30 04/01/17 06:30 PT 11.7 SECONDS (9.4-12.5) 03/29/17 09:50 INR 1.02 (0.93-1.08) 03/29/17 09:50 APTT 27.2 Seconds (25.1-36.5) 03/29/17 09:50 Attending/Attestation - Attestation I have personally seen and examined this patient.: Yes I have fully participated in the care of the patient.: Yes I have reviewed all pertinent clinical information, including history, physical exam and plan: Yes
--- NOTE | 2017-03-31 10:56 | PN ---
DATE: SUBJECTIVE: I saw her resting comfortably in bed. Her legs are not as red as the day before. I do think this is slowly improving. She is comfortable in bed. She is alert and eating. She has bilateral lower extremity cellulitis, right hip ulcer, paraplegia, colostomy, diabetes and hypertension. She is being seen by Surgery, Infectious Disease, Podiatry, and endocrinology. She also is homeless to go to a facility. PHYSICAL EXAMINATION: VITAL SIGNS: She has a 97.8 temperature, 76 pulse, 148/77 blood pressure, 20 respiratory rate, and 100% O2 sat on room air. HEENT: Head is atraumatic and normocephalic. HEART: Regular rate. LUNGS: Decreased breath sounds, but clear. ABDOMEN: Soft. EXTREMITIES: Paraplegic trace edema. There are some redness, but it is much better than when she came in. She has right hip ulcer. MEDICATIONS: She is currently on aspirin, Feosol, Glucophage, Glucotrol, insulin, Levemir, Lipitor, Lotrisone, Merrem IV, morphine, Norvasc, Santyl, vancomycin IV, vitamin B1, and Zoloft. LABORATORY DATA: She has a 138 sodium, potassium is 3.9, BUN of 8, creatinine 0.5. GFR is greater than 60. Sugar is 108, calcium is 9.5, total bilirubin is 0.2. AST is 27, ALT is 50, alkaline phosphatase 116. White count 5.5, hemoglobin is 9.9, hematocrit is 32.7, platelets of 261. Urinalysis, bacteria many. She also has been treated for UTI. ASSESSMENT AND PLAN: We will continue with aggressive treatment and care as per specialist and IV antibiotics. We will check her labs tomorrow. Go to physical therapy. Carlos Enrique Ortiz DO MTDD
--- NOTE | 2017-03-31 14:30 | CP.PCM.PN ---
Subjective - Date & Time of Evaluation Date of Evaluation: 03/31/17 Time of Evaluation: 14:26 - Subjective Subjective: Surgery: Dr. Coto Pt seen and examined. No acute overnight events. Pt states she feels fine. Overnight wound vac came off but otherwise denies complaints. Tolerating diet. Denies N/V, F/C. Objective - Vital Signs/Intake and Output Vital Signs (last 24 hours): Temp Pulse Resp BP Pulse Ox 98 F 79 20 131/71 96 03/31/17 08:50 03/31/17 08:50 03/31/17 08:50 03/31/17 08:50 03/31/17 08:50 Intake and Output: 03/31/17 03/31/17 06:59 18:59 Intake Total 900 Output Total 2100 Balance -1200 - Medications Medications: Current Medications Amlodipine Besylate (Norvasc) 5 mg PO DAILY [facility] Last Admin: 03/31/17 10:50 Dose: 5 mg Aspirin (Aspirin Chewable) 81 mg PO DAILY [facility] Last Admin: 03/31/17 10:50 Dose: 81 mg Atorvastatin Calcium (Lipitor) 10 mg PO DIN [facility] Last Admin: 03/30/17 17:01 Dose: 10 mg Betamethasone/Clotrimazole (Lotrisone) 0 ml TOP DAILY [facility] Last Admin: 03/31/17 10:50 Dose: 1 applic Collagenase (Santyl) 1 gm TOP DAILY [facility] Last Admin: 03/31/17 10:51 Dose: 1 applic Ferrous Sulfate (Feosol) 324 mg PO DAILY [facility] Last Admin: 03/31/17 10:50 Dose: 324 mg Glipizide (Glucotrol) 10 mg PO 0730,1630 [facility] Last Admin: 03/31/17 10:50 Dose: 10 mg Vancomycin HCl (Vancomycin 1gm) 1 gm in 250 mls @ 167 mls/hr IVPB Q12H [facility] PRN Reason: Protocol Last Admin: 03/31/17 05:30 Dose: 167 mls/hr Meropenem (Merrem Iv 1 Gm Premix) 50 mls @ 100 mls/hr IVPB Q8 [facility] Last Admin: 03/31/17 05:22 Dose: 100 mls/hr Insulin Detemir (Levemir) 16 unit SC HS [facility] Last Admin: 03/30/17 21:21 Dose: 16 unit Insulin Human Regular (Humulin R Low) 0 units SC ACHS [facility] PRN Reason: Protocol Last Admin: 03/31/17 12:00 Dose: Not Given Metformin HCl (Glucophage) 500 mg PO BID [facility] Last Admin: 03/31/17 10:50 Dose: 500 mg Morphine Sulfate (Morphine) 1 mg IVP Q6H PRN PRN Reason: Pain, moderate (4-7) Last Admin: 03/31/17 11:21 Dose: 1 mg Sertraline HCl (Zoloft) 100 mg PO DAILY [facility] Last Admin: 03/31/17 10:50 Dose: 100 mg Thiamine HCl (Vitamin B1 Tab) 100 mg PO DAILY [facility] Last Admin: 03/31/17 10:50 Dose: 100 mg - Labs Labs: 03/31/17 07:00 03/31/17 07:00 PT 11.7 SECONDS (9.4-12.5) 03/29/17 09:50 INR 1.02 (0.93-1.08) 03/29/17 09:50 APTT 27.2 Seconds (25.1-36.5) 03/29/17 09:50 - Constitutional Appears: Well, No Acute Distress - Head Exam Head Exam: ATRAUMATIC, NORMOCEPHALIC - ENT Exam ENT Exam: Mucous Membranes Moist - Respiratory Exam Respiratory Exam: NORMAL BREATHING PATTERN - Cardiovascular Exam Cardiovascular Exam: RRR - GI/Abdominal Exam GI & Abdominal Exam: Soft. absent: Tenderness Additional comments: ostomy in place - Extremities Exam Additional comments: wound vac in place on R lateral hip - Neurological Exam Neurological Exam: Alert, Awake, Oriented x3 - Skin Skin Exam: Dry, Warm Assessment and Plan - Assessment and Plan (Free Text) Assessment: 57F with R lateral hip wound s/p wound vac placement Plan: - wound vac changes q3-4 days - d/w Dr. Nnamdi Everett, PGY-3 Surgery
--- NOTE | 2017-03-31 17:53 | PN ---
DATE: LOCATION: Room 571. SUBJECTIVE: This is a 57-year-old female with recent uncontrolled type 2 insulin-requiring diabetes, now being followed closely for metabolic management. Her glycemic levels are fluctuating, but much improved at this time. LABORATORY DATA: The latest chemistries showed a BUN of 8, sodium 138, potassium 3.9, chloride 103, CO2 of 28, glucose 89 and creatinine 0.5. PLAN: So, at this time, we will continue the same modified basal insulin at a lower dose of Levemir given as 16 units subcutaneous at bedtime daily as given. We will continue the glipizide given as 10 mg b.i.d. before meals as ordered. We will also continue the metformin given as 500 mg b.i.d. after meals as given. We will continue the low-dose correction scale using Humalog insulin as ordered. She has ongoing IV antibiotic management and debridement of lower extremity cellulitis as noted. She also has underlying paraplegia with multiple decubitus ulcers as noted. We will obtain serial chemistries and supplement accordingly as needed. We will follow with you. Lisa Junior MD
--- NOTE | 2017-03-31 21:45 | PN ---
DATE: 03/31/2017 SUBJECTIVE: The patient is seen earlier this morning, 571, bed two. No fevers and no chills. Uneventful night. PHYSICAL EXAMINATION: VITAL SIGNS: Temperature is 98, blood pressure is 130/70, respiratory rate of 16. HEENT: Unremarkable. NECK: Supple. LUNGS: Have decreased breath sounds. HEART: Normal S1, S2. ABDOMEN: Soft, nontender. Laboratory examination reveals a white count of 5.9, hemoglobin of 9, platelets of 351. Chemistries reveal a BUN of 12, creatinine of 0.5. Urinalysis is noted. HIV is negative. Microbiology reveals buttock cultures are gram-negative bea. Urine culture is E. coli. The sensitivity of the E. coli is ESBL positive on the identification and sensitivity, gram-negative bea from the right buttock is pending. ASSESSMENT/PLAN: A 56-year-old, bilateral lower extremity cellulitis with left leg ulcers. Back tumor with paraplegia and status post colostomy, indwelling Miguel catheter and hypertension, diabetes, anxiety, right-sided ischial decubitus ulcer, on vancomycin and meropenem, day #4. Review of orders reveals meropenem to be active and vancomycin to be active. We will discontinue the vancomycin since the gram-negative bea and will make further recommendations pending identification and sensitivity of the gram-negative bea. ____ progress note is reviewed. Status post wound VAC placement. progress note is reviewed. Bilateral lower extremity cellulitis with wounds. We will follow closely with you. Moshe Sales MD
[2017-03-31] MEDS: Insulin Detemir 100 units/ml Vial (Levemir) SC SCH (23:02)
[2017-04-01] MEDS: Meropenem IV 1 gm in NS 50 ML IVPB SCH ×3 (06:20→22:53)
[2017-04-01 08:11] LABS: ALBUMIN 3.4 g/dL (3.0-4.8); ALT/SGPT 24 U/L (7-56); AST/SGOT 25 U/L (14-36); BLOOD UREA NITROGEN 15 mg/dL (7-21); CALCIUM 9.7 mg/dL (8.4-10.5); GFR AFRICAN-AMERICAN > 60; GFR NON-AFRICAN AMERICAN > 60
[2017-04-01 08:39] LABS: HEMOGLOBIN 10.1 g/dL (12.0-16.0); MEAN CELL VOLUME 75.6 fl (80.0-105.0); MEAN CORPUSCULAR HEMOGLOBIN 22.8 pg (25.0-35.0); MEAN CORPUSCULAR HGB CONC 30.1 g/dl (31.0-37.0); MEAN PLATELET VOLUME 8.9 fl (7.0-11.0); RBC 4.43 10^6/uL (3.5-6.1); RED CELL DISTRIBUTION WIDTH 18.4 % (11.5-14.5); WHITE BLOOD COUNT 6.8 10^3/ul (4.5-11.0)
[2017-04-01] MEDS: Insulin Reg-LOW-Coverage SC SCH ×4 (09:51→22:02)
--- NOTE | 2017-04-01 10:02 | CP.PCM.PN ---
Subjective - Date & Time of Evaluation Date of Evaluation: 04/01/17 Time of Evaluation: 07:45 - Subjective Subjective: Surgery Progress note. Dr. Coto Pt seen and examined at bedside. No acute events overnight. patient denies any complaints. Wound vac in place however, air leak noted. Objective - Vital Signs/Intake and Output Vital Signs (last 24 hours): Temp Pulse Resp BP Pulse Ox 97.8 F 61 18 131/74 97 03/31/17 16:30 03/31/17 16:30 03/31/17 16:30 03/31/17 16:30 03/31/17 16:30 Intake and Output: 04/01/17 04/01/17 06:59 18:59 Intake Total 720 Output Total 1900 Balance -1180 - Medications Medications: Current Medications Amlodipine Besylate (Norvasc) 5 mg PO DAILY [facility] Last Admin: 03/31/17 10:50 Dose: 5 mg Aspirin (Aspirin Chewable) 81 mg PO DAILY [facility] Last Admin: 03/31/17 10:50 Dose: 81 mg Atorvastatin Calcium (Lipitor) 10 mg PO DIN [facility] Last Admin: 03/31/17 18:12 Dose: 10 mg Betamethasone/Clotrimazole (Lotrisone) 0 ml TOP DAILY [facility] Last Admin: 03/31/17 10:50 Dose: 1 applic Collagenase (Santyl) 1 gm TOP DAILY [facility] Last Admin: 03/31/17 10:51 Dose: 1 applic Ferrous Sulfate (Feosol) 324 mg PO DAILY [facility] Last Admin: 03/31/17 10:50 Dose: 324 mg Glipizide (Glucotrol) 10 mg PO 0730,1630 [facility] Last Admin: 03/31/17 18:12 Dose: 10 mg Meropenem (Merrem Iv 1 Gm Premix) 50 mls @ 100 mls/hr IVPB Q8 [facility] Last Admin: 04/01/17 06:20 Dose: 100 mls/hr Insulin Detemir (Levemir) 16 unit SC HS [facility] Last Admin: 03/31/17 23:02 Dose: 16 unit Insulin Human Regular (Humulin R Low) 0 units SC ACHS [facility] PRN Reason: Protocol Last Admin: 03/31/17 23:00 Dose: Not Given Metformin HCl (Glucophage) 500 mg PO BID [facility] Last Admin: 03/31/17 18:12 Dose: 500 mg Morphine Sulfate (Morphine) 1 mg IVP Q6H PRN PRN Reason: Pain, moderate (4-7) Last Admin: 03/31/17 23:12 Dose: 1 mg Sertraline HCl (Zoloft) 100 mg PO DAILY [facility] Last Admin: 03/31/17 10:50 Dose: 100 mg Thiamine HCl (Vitamin B1 Tab) 100 mg PO DAILY [facility] Last Admin: 03/31/17 10:50 Dose: 100 mg - Labs Labs: 04/01/17 06:30 04/01/17 06:30 PT 11.7 SECONDS (9.4-12.5) 03/29/17 09:50 INR 1.02 (0.93-1.08) 03/29/17 09:50 APTT 27.2 Seconds (25.1-36.5) 03/29/17 09:50 - Constitutional Appears: Non-toxic, No Acute Distress - Head Exam Head Exam: ATRAUMATIC, NORMAL INSPECTION, NORMOCEPHALIC - Eye Exam Eye Exam: EOMI - Respiratory Exam Respiratory Exam: NORMAL BREATHING PATTERN. absent: Accessory Muscle Use, Respiratory Distress - GI/Abdominal Exam GI & Abdominal Exam: Soft. absent: Distended, Guarding, Tenderness, Rebound Additional comments: Ostomy in place, no leaks - Exam Additional comments: Miguel in place - Extremities Exam Additional comments: Right ischial wound with wound vac in place. air leak fixed with tegederm - Neurological Exam Neurological Exam: Alert, Awake, Oriented x3 - Skin Skin Exam: Dry, Warm Assessment and Plan - Assessment and Plan (Free Text) Assessment: 57yo F with R ischial decubitus. s/p wound vac placement - continue wound vac replacement q3-4 days - Replaced wound vac sponge 03/31. - Air leak addressed 04/01 Further recs as per Dr. Nnamdi Luevano PGY1 surgery pager: [phone]
[2017-04-01] MEDS: Morphine 2 mg/ml ISec IVP PRN ×2 (11:21→18:25)
[2017-04-01] MEDS: Collagenase 250 Units/gm Ointment(30 gm) TOP SCH (13:49)
--- NOTE | 2017-04-01 16:06 | CP.PCM.PN ---
<Kenneth Anderson - Last Filed: 04/01/17 16:05> Subjective - Date & Time of Evaluation Date of Evaluation: 04/01/17 Time of Evaluation: 16:05 - Subjective Subjective: Podiatry Progress Note- Dr Jenkins 56 yo female PMHx Paraplegia 2/2 back tumor, HTN, DM, uterine fibroids, Anxiety , Depression seen at bedside for b/l LE cellulitis with wounds to left leg. Patient is AAO x 3 and NAD resting comfortably in bed at time of visit. Denies any acute overnight events. Denies new pain. Denies recent N/V/F/C/CP/SOB/D/ posterior calf pain Objective - Vital Signs/Intake and Output Vital Signs (last 24 hours): Temp Pulse Resp BP Pulse Ox 97.8 F 65 18 131/74 97 03/31/17 16:30 04/01/17 10:10 03/31/17 16:30 03/31/17 16:30 03/31/17 16:30 Intake and Output: 04/01/17 04/01/17 06:59 18:59 Intake Total 720 840 Output Total 1900 1000 Balance -1180 -160 - Medications Medications: Current Medications Amlodipine Besylate (Norvasc) 5 mg PO DAILY [facility] Last Admin: 04/01/17 10:10 Dose: 5 mg Aspirin (Aspirin Chewable) 81 mg PO DAILY [facility] Last Admin: 04/01/17 10:09 Dose: 81 mg Atorvastatin Calcium (Lipitor) 10 mg PO DIN [facility] Last Admin: 03/31/17 18:12 Dose: 10 mg Betamethasone/Clotrimazole (Lotrisone) 0 ml TOP DAILY [facility] Last Admin: 03/31/17 10:50 Dose: 1 applic Collagenase (Santyl) 1 gm TOP DAILY [facility] Last Admin: 03/31/17 10:51 Dose: 1 applic Ferrous Sulfate (Feosol) 324 mg PO DAILY [facility] Last Admin: 04/01/17 10:09 Dose: 324 mg Glipizide (Glucotrol) 10 mg PO 0730,1630 [facility] Last Admin: 04/01/17 10:09 Dose: 10 mg Meropenem (Merrem Iv 1 Gm Premix) 50 mls @ 100 mls/hr IVPB Q8 [facility] Last Admin: 04/01/17 06:20 Dose: 100 mls/hr Insulin Detemir (Levemir) 10 unit SC HS [facility] Insulin Human Regular (Humulin R Low) 0 units SC ACHS [facility] PRN Reason: Protocol Last Admin: 04/01/17 09:51 Dose: Not Given Metformin HCl (Glucophage) 500 mg PO BID [facility] Last Admin: 04/01/17 10:09 Dose: 500 mg Morphine Sulfate (Morphine) 1 mg IVP Q6H PRN PRN Reason: Pain, moderate (4-7) Last Admin: 04/01/17 11:21 Dose: 1 mg Sertraline HCl (Zoloft) 100 mg PO DAILY [facility] Last Admin: 04/01/17 10:09 Dose: 100 mg Thiamine HCl (Vitamin B1 Tab) 100 mg PO DAILY [facility] Last Admin: 04/01/17 10:09 Dose: 100 mg - Labs Labs: 04/01/17 06:30 04/01/17 06:30 PT 11.7 SECONDS (9.4-12.5) 03/29/17 09:50 INR 1.02 (0.93-1.08) 03/29/17 09:50 APTT 27.2 Seconds (25.1-36.5) 03/29/17 09:50 - Constitutional Appears: Well, Non-toxic, No Acute Distress - Extremities Exam Additional comments: LE focused exam: Vasc: DP/PT pulses palpable b/l. Skin temperature elevated to b/l LE. CFT < 3 seconds to all digits b/l. Minimal edema noted to b/l LE Neuro: Epicritic and protective sensation grossly intact b/l. Derm: B/l cellulitic changes noted to legs- stable. Two superficial wounds noted to left leg. Wound #1: Located posterior leg approximately 3 cm x 3 cm with fibrogranular base. No malodor, no purulent drainage, no tracking, tunneling or undermining noted. Wound #2: Located lateral leg approximately 2 cm x 2 cm with fibrogranular base. No malodor, no purulent drainage, no tracking , tunneling or undermining noted. Wounds and cellulitis slowly improving MSK: Paraplegia noted to RLE. Minimal POP to wounds. ROM WNL left LE. 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 Jenkins Afebrile, absent leukocytosis Continue abx No evidence of DVT Normal DALTON and PVR at rest Wounds dressed with optifoam, legs lathered in lotrisone Podiatry will continue to follow while patient is in house <Bhavik Jenkins - Last Filed: 04/03/17 12:11> Objective - Vital Signs/Intake and Output Vital Signs (last 24 hours): Temp Pulse Resp BP Pulse Ox 97.8 F 78 20 148/78 98 04/03/17 08:00 04/03/17 10:12 04/03/17 08:00 04/03/17 10:12 04/03/17 08:00 Intake and Output: 04/03/17 04/03/17 06:59 18:59 Intake Total 480 Output Total 600 Balance -120 - Medications Medications: Current Medications Amlodipine Besylate (Norvasc) 5 mg PO DAILY [facility] Last Admin: 04/03/17 10:12 Dose: 5 mg Aspirin (Aspirin Chewable) 81 mg PO DAILY [facility] Last Admin: 04/03/17 10:12 Dose: 81 mg Atorvastatin Calcium (Lipitor) 10 mg PO DIN [facility] Last Admin: 04/02/17 16:07 Dose: 10 mg Betamethasone/Clotrimazole (Lotrisone) 0 ml TOP DAILY [facility] Last Admin: 04/03/17 10:14 Dose: 1 applic Collagenase (Santyl) 1 gm TOP DAILY [facility] Last Admin: 04/03/17 10:14 Dose: 1 applic Ferrous Sulfate (Feosol) 324 mg PO DAILY [facility] Last Admin: 04/03/17 10:12 Dose: 324 mg Glipizide (Glucotrol) 10 mg PO 0730,1630 [facility] Last Admin: 04/03/17 08:17 Dose: Not Given Meropenem (Merrem Iv 1 Gm Premix) 50 mls @ 100 mls/hr IVPB Q8 [facility] Last Admin: 04/03/17 05:54 Dose: 100 mls/hr Insulin Human Regular (Humulin R Low) 0 units SC ACHS [facility] PRN Reason: Protocol Last Admin: 04/03/17 08:17 Dose: Not Given Metformin HCl (Glucophage) 500 mg PO BID [facility] Last Admin: 04/03/17 10:12 Dose: 500 mg Morphine Sulfate (Morphine) 1 mg IVP Q6H PRN PRN Reason: Pain, moderate (4-7) Last Admin: 04/03/17 04:27 Dose: 1 mg Sertraline HCl (Zoloft) 100 mg PO DAILY [facility] Last Admin: 04/03/17 10:12 Dose: 100 mg Thiamine HCl (Vitamin B1 Tab) 100 mg PO DAILY [facility] Last Admin: 04/03/17 10:12 Dose: 100 mg - Labs Labs: 04/01/17 06:30 04/01/17 06:30 PT 11.7 SECONDS (9.4-12.5) 03/29/17 09:50 INR 1.02 (0.93-1.08) 03/29/17 09:50 APTT 27.2 Seconds (25.1-36.5) 03/29/17 09:50 Attending/Attestation - Attestation I have personally seen and examined this patient.: Yes I have fully participated in the care of the patient.: Yes I have reviewed all pertinent clinical information, including history, physical exam and plan: Yes
[2017-04-01] MEDS: Clotrimazole/Betamethasone Lotion(30 ml) TOP SCH (18:47)
[2017-04-01] MEDS ORDERED: Insulin Detemir 100 units/ml Vial (Levemir) SC SCH (22:00)
--- NOTE | 2017-04-01 23:29 | PN ---
DATE: ENDOCRINOLOGY FOLLOWUP NOTE LOCATION: Room 571. SUBJECTIVE: This is a 57 year old female with recent uncontrolled type 2 insulin requiring diabetes, now with improved glycemic profile as noted. She is undergoing IV antibiotic management for lower extremity cellulitis as noted thereof. Her glycemic levels have raised from 91 to 159 mg/dL. LABORATORY DATA: The latest chemistry shows a BUN of 15, sodium 137, potassium 3.7, chloride 102, CO2 of 25, glucose 65, and creatinine 0.5. PLAN: So, at this time, we will modify once again her basal insulin and lower the Levemir to 10 units subcu at bedtime daily to start tonight. We will continue the dual oral hypoglycemic drug therapy with glipizide given at 10 mg b.i.d. and metformin at 500 mg b.i.d. as ordered. We will obtain serial chemistries and supplement accordingly as needed. We will follow with you. Lisa Junior MD
[2017-04-02] MEDS: Morphine 2 mg/ml ISec IVP PRN ×4 (01:35→22:27)
[2017-04-02] MEDS: Meropenem IV 1 gm in NS 50 ML IVPB SCH ×3 (05:54→22:27)
--- NOTE | 2017-04-02 08:54 | PN ---
DATE: 04/01/2017 SUBJECTIVE: I saw her resting comfortably in bed. She is eating better. She is feeling better. The legs are not as red. She is on wound VAC. She is on aspirin, Feosol, Glucophage, Glucotrol, insulin, Levemir, Lipitor, Lotrisone, meropenem IV, morphine, Norvasc, Santyl, vitamin B1 and Zoloft. PHYSICAL EXAMINATION GENERAL: She is comfortable, feeling better, eating better. VITAL SIGNS: She has 97.8 temperature, 61 pulse, 131/74 blood pressure, 18 respiratory rate, 97% O2 saturation on room air. HEENT: Head is atraumatic and normocephalic. Throat is moist. NECK: Supple. HEART: Regular rate. LUNGS: Clear to auscultation. ABDOMEN: Soft and nontender. Positive bowel sounds. She does have a colostomy. EXTREMITIES: Reddened but a little better than when she came in. MEDICATIONS: She is currently on aspirin, Feosol, Glucophage, Glucotrol, insulin Levemir, Lipitor, Lotrisone, Merrem, morphine, Norvasc, collagenase, vitamin B1, and Zoloft. LABORATORY DATA: White count 6.8, 10.1 hemoglobin, 30.5 hematocrit, with 381 platelets. Sodium 137, potassium 3.7, BUN 15, creatinine 0.5. GFR is greater than 60. Sugar is 65, calcium is 9.7, total bilirubin is 0.3, AST is 25, ALT is 24, alkaline phosphatase 114, total protein 6.8. ASSESSMENT AND PLAN: She had a urinary tract infection, and human immunodeficiency virus is nonreactive. She has bilateral leg cellulitis, hip ulcer, paraplegia, colostomy, diabetes, urinary tract infection. I am hoping tomorrow if it is okay with Infectious Disease, we can change her to tablets and discharge her. I am not sure what we can do about the hip ulcer because she is on a wound VAC. She refuses to go anywhere to get this taken care of. We will see what we can do to help her. multiple issues. Titi Ortiz DO [facility] # [id number] MTDJovan
[2017-04-02] MEDS: Insulin Reg-LOW-Coverage SC SCH ×3 (12:08→19:18)
[2017-04-02] MEDS: Clotrimazole/Betamethasone Lotion(30 ml) TOP SCH (12:16)
[2017-04-02] MEDS: Collagenase 250 Units/gm Ointment(30 gm) TOP SCH (12:17)
--- NOTE | 2017-04-02 12:32 | CP.PCM.PN ---
Subjective - Date & Time of Evaluation Date of Evaluation: 04/02/17 Time of Evaluation: 07:30 - Subjective Subjective: Surgery: Dr. Coto Pt seen and examined. No acute overnight events. Pt states she doesn't want the wound vac anymore, and took it off overnight. Tolerating diet, and denies N/V, F /C. Objective - Vital Signs/Intake and Output Vital Signs (last 24 hours): Temp Pulse Resp BP Pulse Ox 98.3 F 60 18 139/75 96 04/02/17 08:00 04/02/17 08:00 04/02/17 08:00 04/02/17 08:00 04/02/17 08:00 Intake and Output: 04/02/17 04/02/17 06:59 18:59 Intake Total 660 Output Total 1300 Balance -640 - Medications Medications: Current Medications Amlodipine Besylate (Norvasc) 5 mg PO DAILY [facility] Last Admin: 04/02/17 12:07 Dose: 5 mg Aspirin (Aspirin Chewable) 81 mg PO DAILY [facility] Last Admin: 04/02/17 12:08 Dose: 81 mg Atorvastatin Calcium (Lipitor) 10 mg PO DIN [facility] Last Admin: 04/01/17 18:52 Dose: 10 mg Betamethasone/Clotrimazole (Lotrisone) 0 ml TOP DAILY [facility] Last Admin: 04/02/17 12:16 Dose: 1 applic Collagenase (Santyl) 1 gm TOP DAILY [facility] Last Admin: 04/02/17 12:17 Dose: 1 applic Ferrous Sulfate (Feosol) 324 mg PO DAILY [facility] Last Admin: 04/02/17 12:07 Dose: 324 mg Glipizide (Glucotrol) 10 mg PO 0730,1630 [facility] Last Admin: 04/02/17 08:43 Dose: 10 mg Meropenem (Merrem Iv 1 Gm Premix) 50 mls @ 100 mls/hr IVPB Q8 [facility] Last Admin: 04/02/17 05:54 Dose: 100 mls/hr Insulin Human Regular (Humulin R Low) 0 units SC ACHS [facility] PRN Reason: Protocol Last Admin: 04/02/17 12:08 Dose: Not Given Metformin HCl (Glucophage) 500 mg PO BID [facility] Last Admin: 04/02/17 12:07 Dose: 500 mg Morphine Sulfate (Morphine) 1 mg IVP Q6H PRN PRN Reason: Pain, moderate (4-7) Last Admin: 04/02/17 08:43 Dose: 1 mg Sertraline HCl (Zoloft) 100 mg PO DAILY [facility] Last Admin: 04/02/17 12:07 Dose: 100 mg Thiamine HCl (Vitamin B1 Tab) 100 mg PO DAILY [facility] Last Admin: 04/02/17 12:07 Dose: 100 mg - Labs Labs: 04/01/17 06:30 04/01/17 06:30 PT 11.7 SECONDS (9.4-12.5) 03/29/17 09:50 INR 1.02 (0.93-1.08) 03/29/17 09:50 APTT 27.2 Seconds (25.1-36.5) 03/29/17 09:50 - Constitutional Appears: Well, No Acute Distress - Head Exam Head Exam: ATRAUMATIC, NORMOCEPHALIC - Eye Exam Eye Exam: Normal appearance - ENT Exam ENT Exam: Mucous Membranes Moist - Respiratory Exam Respiratory Exam: NORMAL BREATHING PATTERN - Cardiovascular Exam Cardiovascular Exam: RRR - GI/Abdominal Exam GI & Abdominal Exam: Soft. absent: Tenderness - Neurological Exam Neurological Exam: Alert, Awake, Oriented x3 - Skin Skin Exam: Dry, Warm Assessment and Plan - Assessment and Plan (Free Text) Assessment: 57F with R lateral hip wound Plan: - will attempt to convince pt to replace wound vac - however if she refuses continue local wound care - no further surgical intervention at this time - d/w Dr. Nnamdi Everett, PGY-3 Surgery
--- NOTE | 2017-04-02 13:04 | PN ---
DATE: 04/02/2017 SUBJECTIVE: I saw her in bed resting comfortably. She slept well. I understand she pulled the wound VAC off and stuffed her wound with tissues. She is noncompliant and not following direction. I discussed going to rehab,she refuses, but she needs to go. She is on aspirin, Feosol, Glucophage, Glucotrol, insulin coverage, Levemir, Lipitor, Lotrisone, Merrem IV, morphine, Norvasc, Santyl, vitamin and Zoloft. PHYSICAL EXAMINATION: VITAL SIGNS: She has 97.8 temperature, 61 pulse, 131/74 blood pressure, 18 respiratory rate, and 97% O2 saturations on room air. HEENT: Head is atraumatic and normocephalic. HEART: Regular rate. LUNGS: Decreased breath sounds. ABDOMEN: Soft. Positive colostomy. EXTREMITIES: Paraplegic from the low back cannot move them and they are less red from the cellulitis. LABORATORY DATA: She has 6.8 white count, 10.1 hemoglobin, and 381 platelets. Sodium is 137, potassium is 3.7, GFR is greater than 60, BUN is 15 and creatinine is 0.5. Last blood sugar was 99 and calcium was 9.7. AST is 25, AST is 24, and alkaline phosphatase is 114. ASSESSMENT AND PLAN: She is on intravenous antibiotics, it seems like she is to be on them for longtime, so Infectious Diseases will change them to p.o. She had urinary tract infection, non-reactive on the human immunodeficiency virus. She is being seen by Endocrinology, Podiatry, and Infectious Diseases. She has bilateral lower extremity cellulitis. She has got paraplegic colostomy, indwelling Miguel catheter, and right-sided decubitus ulcer on Merrem day number 4. If we can change it to tablets, I will discharge her. If she wants to go outside, she is a homeless patient, I would like her to go rehab to finish up the treatment or Transitional Care Unit, which she refuses to go anywhere. May be long-term acute care to help her left ulcer. I will ask Care Asst rn case manager to help me to right now pulled off the wound VAC and stuffed the wound with tissues. I will discuss this with Infectious Diseases for the length of time, she is on IV antibiotics until we could change her to p.o. antibiotics. Carlos Enrique Ortiz DO [facility]
--- NOTE | 2017-04-02 14:52 | CP.PCM.PN ---
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 Patient is AAO x 3 and NAD resting comfortably in bed at time of visit. Denies any acute overnight events. Denies new pain. Denies recent N/V/F/C/CP/SOB/D/posterior calf pain Objective - Vital Signs/Intake and Output Vital Signs (last 24 hours): Temp Pulse Resp BP Pulse Ox 98.3 F 60 18 139/75 96 04/02/17 08:00 04/02/17 08:00 04/02/17 08:00 04/02/17 08:00 04/02/17 08:00 Intake and Output: 04/02/17 04/02/17 06:59 18:59 Intake Total 660 Output Total 1300 Balance -640 - Medications Medications: Current Medications Amlodipine Besylate (Norvasc) 5 mg PO DAILY [facility] Last Admin: 04/02/17 12:07 Dose: 5 mg Aspirin (Aspirin Chewable) 81 mg PO DAILY [facility] Last Admin: 04/02/17 12:08 Dose: 81 mg Atorvastatin Calcium (Lipitor) 10 mg PO DIN [facility] Last Admin: 04/01/17 18:52 Dose: 10 mg Betamethasone/Clotrimazole (Lotrisone) 0 ml TOP DAILY [facility] Last Admin: 04/02/17 12:16 Dose: 1 applic Collagenase (Santyl) 1 gm TOP DAILY [facility] Last Admin: 04/02/17 12:17 Dose: 1 applic Ferrous Sulfate (Feosol) 324 mg PO DAILY [facility] Last Admin: 04/02/17 12:07 Dose: 324 mg Glipizide (Glucotrol) 10 mg PO 0730,1630 [facility] Last Admin: 04/02/17 08:43 Dose: 10 mg Meropenem (Merrem Iv 1 Gm Premix) 50 mls @ 100 mls/hr IVPB Q8 [facility] Last Admin: 04/02/17 05:54 Dose: 100 mls/hr Insulin Human Regular (Humulin R Low) 0 units SC ACHS [facility] PRN Reason: Protocol Last Admin: 04/02/17 12:08 Dose: Not Given Metformin HCl (Glucophage) 500 mg PO BID [facility] Last Admin: 04/02/17 12:07 Dose: 500 mg Morphine Sulfate (Morphine) 1 mg IVP Q6H PRN PRN Reason: Pain, moderate (4-7) Last Admin: 04/02/17 08:43 Dose: 1 mg Sertraline HCl (Zoloft) 100 mg PO DAILY [facility] Last Admin: 04/02/17 12:07 Dose: 100 mg Thiamine HCl (Vitamin B1 Tab) 100 mg PO DAILY [facility] Last Admin: 04/02/17 12:07 Dose: 100 mg - Labs Labs: 04/01/17 06:30 04/01/17 06:30 PT 11.7 SECONDS (9.4-12.5) 03/29/17 09:50 INR 1.02 (0.93-1.08) 03/29/17 09:50 APTT 27.2 Seconds (25.1-36.5) 03/29/17 09:50 - Constitutional Appears: Well, Non-toxic, No Acute Distress - Extremities Exam Additional comments: LE focused exam: Vasc: DP/PT pulses palpable b/l. Skin temperature elevated to b/l LE but improving. CFT < 3 seconds to all digits b/l. Minimal edema noted to b/l LE Neuro: Epicritic and protective sensation grossly intact b/l. Derm: B/l cellulitic changes noted to legs- stable and improving. Two superficial wounds noted to left leg. Wound #1: Located posterior leg approximately 3 cm x 3 cm with fibrogranular base. No malodor, no purulent drainage, no tracking, tunneling or undermining noted. Wound #2: Located lateral leg approximately 2 cm x 2 cm with fibrogranular base. No malodor, no purulent drainage, no tracking, tunneling or undermining noted. Wounds and cellulitis slowly improving MSK: Paraplegia noted to RLE. Minimal POP to wounds. ROM WNL left LE. 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 Brito Afebrile No signs of DVT Normal DALTON and PVR at rest Wounds dressed with optifoam Legs lathered in Lotrisone cream No plan for surgical intervention at this time Podiatry will continue to follow while patient in house <Anahy Brito - Last Filed: 04/06/17 16:37> Objective - Vital Signs/Intake and Output Vital Signs (last 24 hours): Temp Pulse Resp BP Pulse Ox 97.4 F L 62 20 135/68 98 04/06/17 08:05 04/06/17 08:05 04/06/17 08:05 04/06/17 08:05 04/06/17 08:05 Intake and Output: 04/06/17 04/06/17 06:59 18:59 Intake Total 540 900 Output Total 1000 Balance -460 900 - Medications Medications: Current Medications Amlodipine Besylate (Norvasc) 5 mg PO DAILY [facility] Last Admin: 04/06/17 10:23 Dose: 5 mg Aspirin (Aspirin Chewable) 81 mg PO DAILY [facility] Last Admin: 04/06/17 10:20 Dose: 81 mg Atorvastatin Calcium (Lipitor) 10 mg PO DIN [facility] Last Admin: 04/05/17 17:51 Dose: 10 mg Betamethasone/Clotrimazole (Lotrisone) 0 ml TOP DAILY [facility] Last Admin: 04/06/17 14:18 Dose: Not Given Collagenase (Santyl) 1 gm TOP DAILY [facility] Last Admin: 04/06/17 10:23 Dose: 1 applic Ferrous Sulfate (Feosol) 324 mg PO DAILY [facility] Last Admin: 04/06/17 10:20 Dose: 324 mg Glipizide (Glucotrol) 5 mg PO 0730,1630 [facility] Last Admin: 04/06/17 08:15 Dose: 5 mg Meropenem (Merrem Iv 1 Gm Premix) 50 mls @ 100 mls/hr IVPB Q8 [facility] Last Admin: 04/06/17 14:17 Dose: 100 mls/hr Insulin Human Regular (Humulin R Low) 0 units SC ACHS [facility] PRN Reason: Protocol Last Admin: 04/06/17 16:29 Dose: Not Given Ketorolac Tromethamine (Toradol) 30 mg IVP Q6H PRN PRN Reason: Pain, moderate (4-7) Last Admin: 04/05/17 13:15 Dose: 30 mg Metformin HCl (Glucophage) 500 mg PO BID [facility] Last Admin: 04/06/17 10:20 Dose: 500 mg Sertraline HCl (Zoloft) 100 mg PO DAILY [facility] Last Admin: 04/06/17 10:20 Dose: 100 mg Thiamine HCl (Vitamin B1 Tab) 100 mg PO DAILY [facility] Last Admin: 04/06/17 10:20 Dose: 100 mg Tramadol HCl (Ultram) 50 mg PO Q8H PRN PRN Reason: Pain, severe (8-10) Last Admin: 04/06/17 14:50 Dose: 50 mg - Labs Labs: 04/05/17 07:00 04/05/17 07:00 PT 11.7 SECONDS (9.4-12.5) 03/29/17 09:50 INR 1.02 (0.93-1.08) 03/29/17 09:50 APTT 27.2 Seconds (25.1-36.5) 03/29/17 09:50
--- NOTE | 2017-04-02 17:02 | PN ---
DATE: ENDOCRINOLOGY FOLLOWUP NOTE LOCATION: Room 571. SUBJECTIVE: This is a 57-year-old female with recent uncontrolled type 2 insulin requiring diabetes, now being followed closely for metabolic management. She has developed overnight low normal glycemic profile, as expected with recovery of the pancreas from the long-acting basal insulin with Levemir insulin as given. Today's glucose levels have ranged from 91 and 99 mg/dL. The latest chemistry showed BUN of 15, sodium, 137, potassium 3.7, chloride 102, CO2 25, glucose 65, and creatinine 0.5. So at this time, we will actually modify her basal insulin and discontinued Levemir as given at 10 units overnight as ordered. We will continue her dual oral hypoglycemic drug therapy with metformin given at 500 mg b.i.d. and glipizide at 10 mg b.i.d. before meals as ordered. We will titrate incrementally as indicated to optimize metabolic control. We will follow and advice accordingly. Lisa Junior MD
--- NOTE | 2017-04-02 20:26 | PN ---
DATE: 04/02/2017 SUBJECTIVE: The patient was seen earlier in room 571, bed 2. The patient has had no fevers and no chills. PHYSICAL EXAMINATION: VITAL SIGNS: Temperature is 98, blood pressure is 130/70, and respiratory rate of 18. HEENT: Unremarkable. NECK: Supple. LUNGS: Have decreased breath sounds. HEART: Normal S1 and S2. ABDOMEN: Soft, nontender. LABORATORY DATA: Reveals a white count of 6.8, hemoglobin of 10, platelets of 381, BUN of 15, and creatinine of 0.5. Urinalysis is noted. HIV is negative. Microbiology reveals the urine culture is positive for E. coli, the blood culture is positive for E. coli, the blood culture is ESBL E. Coli. REVIEW OF ORDERS: Reveals the patient to be on meropenem. Dr. Iam Patterson's note is reviewed. note is reviewed. She says that the patient does not want the wound VAC anymore and took it off overnight. Dr. Carlos Enrique Ortiz's note is reviewed. ASSESSMENT AND PLAN: A 56-year-old female with bilateral lower extremity cellulitis and some left leg ulcer and back tumor with paraplegia, status post colostomy, indwelling Miguel catheter, hypertension, diabetes, anxiety, right-sided ischial decubitus ulcer with extended-spectrum beta-lactamase Escherichia coli from the wound, on meropenem, day #5, no p.o. antibiotics are available with the extended-spectrum beta-lactamase. We will complete a short course of antibiotics now and continue with the local wound care. Moshe Sales MD
[2017-04-03] MEDS: Insulin Reg-LOW-Coverage SC SCH ×4 (03:52→17:09)
[2017-04-03] MEDS: Morphine 2 mg/ml ISec IVP PRN ×3 (04:27→20:31)
[2017-04-03] MEDS: Meropenem IV 1 gm in NS 50 ML IVPB SCH ×3 (05:54→21:45)
--- NOTE | 2017-04-03 08:16 | CP.PCM.PN ---
Subjective - Date & Time of Evaluation Date of Evaluation: 04/03/17 Time of Evaluation: 07:10 - Subjective Subjective: General Surgery Progress Note for Dr. Coto Patient seen and examined at bedside. Patient refused placement of wound vac. Patient denies any pain, nausea, vomiting, or diarrhea. Nurse reports no events overnight Objective - Vital Signs/Intake and Output Vital Signs (last 24 hours): Temp Pulse Resp BP Pulse Ox 97.7 F 87 20 155/102 H 98 04/02/17 16:00 04/02/17 16:00 04/02/17 16:00 04/02/17 16:00 04/02/17 16:00 Intake and Output: 04/03/17 04/03/17 06:59 18:59 Intake Total 480 Output Total 600 Balance -120 - Medications Medications: Current Medications Amlodipine Besylate (Norvasc) 5 mg PO DAILY [facility] Last Admin: 04/02/17 12:07 Dose: 5 mg Aspirin (Aspirin Chewable) 81 mg PO DAILY [facility] Last Admin: 04/02/17 12:08 Dose: 81 mg Atorvastatin Calcium (Lipitor) 10 mg PO DIN [facility] Last Admin: 04/02/17 16:07 Dose: 10 mg Betamethasone/Clotrimazole (Lotrisone) 0 ml TOP DAILY [facility] Last Admin: 04/02/17 12:16 Dose: 1 applic Collagenase (Santyl) 1 gm TOP DAILY [facility] Last Admin: 04/02/17 12:17 Dose: 1 applic Ferrous Sulfate (Feosol) 324 mg PO DAILY [facility] Last Admin: 04/02/17 12:07 Dose: 324 mg Glipizide (Glucotrol) 10 mg PO 0730,1630 [facility] Last Admin: 04/02/17 15:57 Dose: 10 mg Meropenem (Merrem Iv 1 Gm Premix) 50 mls @ 100 mls/hr IVPB Q8 [facility] Last Admin: 04/03/17 05:54 Dose: 100 mls/hr Insulin Human Regular (Humulin R Low) 0 units SC ACHS [facility] PRN Reason: Protocol Last Admin: 04/03/17 03:52 Dose: Not Given Metformin HCl (Glucophage) 500 mg PO BID [facility] Last Admin: 04/02/17 19:18 Dose: 500 mg Morphine Sulfate (Morphine) 1 mg IVP Q6H PRN PRN Reason: Pain, moderate (4-7) Last Admin: 04/03/17 04:27 Dose: 1 mg Sertraline HCl (Zoloft) 100 mg PO DAILY [facility] Last Admin: 04/02/17 12:07 Dose: 100 mg Thiamine HCl (Vitamin B1 Tab) 100 mg PO DAILY [facility] Last Admin: 04/02/17 12:07 Dose: 100 mg - Labs Labs: 04/01/17 06:30 04/01/17 06:30 PT 11.7 SECONDS (9.4-12.5) 03/29/17 09:50 INR 1.02 (0.93-1.08) 03/29/17 09:50 APTT 27.2 Seconds (25.1-36.5) 03/29/17 09:50 - Constitutional Appears: Well, Non-toxic - Head Exam Head Exam: ATRAUMATIC, NORMOCEPHALIC - Eye Exam Eye Exam: EOMI, Normal appearance - ENT Exam ENT Exam: Mucous Membranes Moist, Normal Oropharynx - Neck Exam Neck Exam: Normal Inspection - Respiratory Exam Respiratory Exam: Clear to Ausculation Bilateral, NORMAL BREATHING PATTERN - Cardiovascular Exam Cardiovascular Exam: RRR, +S1, +S2 - GI/Abdominal Exam GI & Abdominal Exam: Soft, Normal Bowel Sounds Additional comments: colostomy bag present - Neurological Exam Neurological Exam: Alert, Awake, Oriented x3 - Psychiatric Exam Psychiatric exam: Normal Affect, Normal Mood - Skin Skin Exam: Dry, Intact, Normal Color, Warm Additional comments: right lateral hip wound appears appropriately dressed Assessment and Plan - Assessment and Plan (Free Text) Assessment: 57 year old female with right lateral hip wound. Plan: Patient outright refuses wound vac Recommend local wound care per wound care nurse No further surgical intervention needed at this time Please re-consult as needed Kate Bridges DO, PGY-1 Internal Medicine Case discussed with Dr. Coto
--- NOTE | 2017-04-03 09:29 | PN ---
DATE: 04/02/2017 SUBJECTIVE: This is a 56-year-old female with recent uncontrolled type 2 insulin requiring diabetes, now being followed closely for metabolic management. She has underlying lower extremity cellulitis with ongoing IV antibiotics management and plan. Her glucose levels are fluctuating, but improved and have ranged from 107 to 154 and 155 mg/dL. Her latest chemistry showed BUN of 50, sodium , and creatinine 0.5. At this time, we will continue the same low dose correction scale using regular insulin that is ordered. We have discontinued the Levemir. 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 We will continue her with oral hypoglycemic therapy, giving combination of metformin 500 mg b.i.d. and glipizide ordered. We will titrate . Lisa Junior MD
[2017-04-03] MEDS: Collagenase 250 Units/gm Ointment(30 gm) TOP SCH (10:14)
[2017-04-03] MEDS: Clotrimazole/Betamethasone Lotion(30 ml) TOP SCH (10:14)
--- NOTE | 2017-04-03 12:31 | PN ---
DATE: SUBJECTIVE: I saw resting comfortably in bed. She slept well. She is eating well. The legs are less red, they are improved with antibiotics. She still has a hip ulcer, colostomy. She is a diabetic. She is noncompliant. She pulled off the wound VAC and stuffing also with tissues. She is on aspirin, Feosol, Glucophage, Glucotrol, insulin, Lipitor, Lotrisone, Merrem, morphine, Norvasc, Santyl, vitamin B1 and Zoloft. PHYSICAL EXAMINATION: VITAL SIGNS: 97.8 temperature, 78 pulse, 148/78 blood pressure, 20 respiratory rate, 98% O2 sat on room air. HEENT: Head is atraumatic and normocephalic. HEART: Regular rate. LUNGS: Clear to auscultation. ABDOMEN: Soft. Positive colostomy. EXTREMITIES: Weak from back tumor surgery and she has paraplegia, also the legs are much less red. She has a large hip ulcer. LABORATORY DATA: She has a 6.8 white count, 10.1 hemoglobin, 33.5 hematocrit with 381 platelets. She has a last blood sugar was 76. She has a 137 sodium, potassium 3.7, BUN 15, creatinine 0.5, total bilirubin is 0.3. She has been refusing labs. HIV was negative as per Infectious Disease. I will discharge her once Infectious Disease changes her tablets. She refuses to go anywhere, which is a problem. She has a bilateral lower extremity cellulitis, some left leg ulcers and back tumor with paraplegia, status post colostomy, indwelling Miguel, hypertension, diabetes, anxiety, right-sided ischial decubitus ulcer. She has extended-spectrum beta-lactamase E. coli and there are no p.o. antibiotics available, so we have to complete the course. We are going to get the call from Infectious Disease. I will discharge. In the meantime, we will continue doing what we are doing. We will check her labs tomorrow, hopefully she will let me do it. Carlos Enrique Ortiz DO
--- NOTE | 2017-04-04 01:35 | PN ---
DATE: 04/03/2017 SUBJECTIVE: The patient is in bed, in no acute distress, and nontoxic. PHYSICAL EXAMINATION: VITAL SIGNS: Temperature is 98, blood pressure is 140/70, and respiratory rate is 20. HEENT: Unremarkable. NECK: Supple. LUNGS: Have decreased breath sounds. HEART: Normal S1 and S2. ABDOMEN: Soft. LABORATORY DATA: Reveals a white count of 6.8 and hemoglobin of 10. Chemistry revealed the patient had a BUN of 15 and creatinine of 0.5. Urinalysis is noted. is noted. Microbiology reveals E. coli in the urine, E. coli in the buttocks. Review of orders reveals the patient on meropenem, which requires renewal. Dr. Ortzi's note is reviewed. ASSESSMENT AND PLAN: This is a 56-year-old female with bilateral lower extremity cellulitis and left leg ulcer and tumor, paraplegic, status post colostomy, indwelling catheter, hypertension, diabetes, anxiety, right-sided ischial decubitus ulcer with extended-spectrum beta-lactamases Escherichia coli from the wound day #6, on meropenem and will complete [address] Wilfrid Coto note is reviewed. We will discontinue the antibiotics tomorrow on . Moshe Sales MD
[2017-04-04] MEDS: Morphine 2 mg/ml ISec IVP PRN (02:25)
[2017-04-04] MEDS: Meropenem IV 1 gm in NS 50 ML IVPB SCH ×3 (06:20→22:22)
[2017-04-04 07:55] LABS: HEMOGLOBIN 10.1 g/dL (12.0-16.0); MEAN CORPUSCULAR HEMOGLOBIN 21.9 pg (25.0-35.0); MEAN CORPUSCULAR HGB CONC 28.8 g/dl (31.0-37.0); MEAN PLATELET VOLUME 8.8 fl (7.0-11.0); RBC 4.62 10^6/uL (3.5-6.1); WHITE BLOOD COUNT 6.7 10^3/ul (4.5-11.0)
[2017-04-04] MEDS: Insulin Reg-LOW-Coverage SC SCH ×5 (08:12→21:56)
--- NOTE | 2017-04-04 08:15 | PN ---
DATE: 04/03/2017 SUBJECTIVE: A 57-year-old female seen at bedside for followup evaluation and management of bilateral lower extremity cellulitis with superficial ulcerations to her left leg. The patient is resting comfortably and reports no pain in her legs. PHYSICAL EXAMINATION: VITAL SIGNS: Revealed temperature of 97.8, pulse rate of 78, blood pressure of 148/78, respiratory rate of 20. Palpable pedal pulses noted bilaterally. Absent pedal hair growth noted bilaterally. Capillary filling time is within normal limits x10. There is noted to be +1 nonpitting lower extremity edema bilaterally. Protective sensation is intact using 5.07 g monofilament wire testing bilaterally. Both lower legs present less edematous and erythematous. There are two superficial wound ulcerations located on the left leg one measures approximately 3 cm x 3 cm x 0.1 cm on the posterior leg. The other ulceration measures approximately 2 cm x 2 cm x 0.1 cm on the lateral left leg. Both ulcerations have a mixed fibrotic granular base. There is no malodor. There is no purulence. The wound does not probe to tendon or bone. There is serous drainage noted. There is no signs of underlying abscess formation. LABORATORY DATA: Reveal white count of 6.8, hemoglobin of 10.1, hematocrit of 33.5, platelet count of 381. ASSESSMENT: A 57-year-old female with resolving bilateral lower extremity cellulitis and slowly resolving full-thickness left lower leg wounds. PLAN: The patient was seen and evaluated. All wounds were cleansed with normal sterile saline. We applied Lotrisone cream to both lower legs and feet and the wounds were dressed with Optifoam. The patient will be seen and followed daily while in-house. Bhavik Jenkins DPM
[2017-04-04 08:16] LABS: ALBUMIN 3.5 g/dL (3.0-4.8); ALT/SGPT 19 U/L (7-56); AST/SGOT 23 U/L (14-36); BLOOD UREA NITROGEN 21 mg/dL (7-21); CALCIUM 9.4 mg/dL (8.4-10.5); GFR AFRICAN-AMERICAN > 60; GFR NON-AFRICAN AMERICAN > 60
[2017-04-04] MEDS: Clotrimazole/Betamethasone Lotion(30 ml) TOP SCH (09:03)
[2017-04-04] MEDS: Collagenase 250 Units/gm Ointment(30 gm) TOP SCH (09:03)
--- NOTE | 2017-04-04 09:29 | CP.PCM.PN ---
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 Patient is AAO x 3 and NAD resting comfortably in bed at time of visit. Denies any acute overnight events. Denies new pain. Denies recent N/V/F/C/CP/SOB/D/posterior calf pain Objective - Vital Signs/Intake and Output Vital Signs (last 24 hours): Temp Pulse Resp BP Pulse Ox 98 F 70 20 114/50 L 97 04/04/17 01:00 04/04/17 09:16 04/04/17 01:00 04/04/17 09:16 04/04/17 01:00 Intake and Output: 04/04/17 04/04/17 06:59 18:59 Intake Total 600 Output Total 1100 Balance -500 - Medications Medications: Current Medications Amlodipine Besylate (Norvasc) 5 mg PO DAILY [facility] Last Admin: 04/04/17 09:16 Dose: Not Given Aspirin (Aspirin Chewable) 81 mg PO DAILY [facility] Last Admin: 04/04/17 09:03 Dose: 81 mg Atorvastatin Calcium (Lipitor) 10 mg PO DIN [facility] Last Admin: 04/03/17 17:44 Dose: 10 mg Betamethasone/Clotrimazole (Lotrisone) 0 ml TOP DAILY [facility] Last Admin: 04/04/17 09:03 Dose: 1 applic Collagenase (Santyl) 1 gm TOP DAILY [facility] Last Admin: 04/04/17 09:03 Dose: 1 applic Ferrous Sulfate (Feosol) 324 mg PO DAILY [facility] Last Admin: 04/04/17 09:03 Dose: 324 mg Glipizide (Glucotrol) 10 mg PO 0730,1630 [facility] Last Admin: 04/04/17 08:27 Dose: 10 mg Meropenem (Merrem Iv 1 Gm Premix) 50 mls @ 100 mls/hr IVPB Q8 [facility] Last Admin: 04/04/17 06:20 Dose: 100 mls/hr Insulin Human Regular (Humulin R Low) 0 units SC ACHS [facility] PRN Reason: Protocol Last Admin: 04/04/17 08:12 Dose: Not Given Ketorolac Tromethamine (Toradol) 30 mg IVP Q6H PRN PRN Reason: Pain, moderate (4-7) Last Admin: 04/04/17 09:04 Dose: 30 mg Metformin HCl (Glucophage) 500 mg PO BID [facility] Last Admin: 04/04/17 09:03 Dose: 500 mg Sertraline HCl (Zoloft) 100 mg PO DAILY [facility] Last Admin: 04/04/17 09:03 Dose: 100 mg Thiamine HCl (Vitamin B1 Tab) 100 mg PO DAILY [facility] Last Admin: 04/04/17 09:03 Dose: 100 mg Tramadol HCl (Ultram) 50 mg PO Q8H PRN PRN Reason: Pain, severe (8-10) - Labs Labs: 04/04/17 07:00 04/04/17 07:00 PT 11.7 SECONDS (9.4-12.5) 03/29/17 09:50 INR 1.02 (0.93-1.08) 03/29/17 09:50 APTT 27.2 Seconds (25.1-36.5) 03/29/17 09:50 - Constitutional Appears: Well, Non-toxic, No Acute Distress - Extremities Exam Additional comments: LE focused exam: Vasc: DP/PT pulses palpable B/L. Skin temperature elevated to B/L LE but improving. CFT < 3 seconds to all digits B/L. Minimal edema noted to B/L LE Neuro: Epicritic and protective sensation grossly intact B/L. Derm: B/l cellulitic changes noted to legs- stable and improving. Two superficial wounds noted to left leg. Wound #1: Located posterior leg approximately 3 cm x 3 cm with fibrogranular base. No malodor, no purulent drainage, no tracking, tunneling or undermining noted. Wound #2: Located lateral leg approximately 2 cm x 2 cm with fibrogranular base. No malodor, no purulent drainage, no tracking, tunneling or undermining noted. Wounds and cellulitis slowly improving MSK: Paraplegia noted to RLE. Minimal POP to wounds. ROM WNL to left LE. Muscle strength 5/5 to all major muscle groups, left leg - Neurological Exam Neurological Exam: Alert, Awake, Oriented x3 - Psychiatric Exam Psychiatric exam: Normal Affect, Normal Mood Assessment and Plan - Assessment and Plan (Free Text) Assessment: 57 yo female PMHx of paraplegia 2/2 back tumor, HTN, DM, uterine fibroids, anxiety, and depression seen at bedside after being admitted through ED for bilateral LE cellulitis with wounds Plan: Patient seen and evaluated at bedside Plan discussed with attending Dr. Brito Afebrile, WBC 6.7 No signs of DVT Normal DALTON and PVR at rest Wounds to LLE dressed with optifoam Legs lathered in Lotrisone cream No plan for surgical intervention at this time Podiatry will continue to follow while patient in house <Anahy Brito - Last Filed: 04/06/17 17:58> Objective - Vital Signs/Intake and Output Vital Signs (last 24 hours): Temp Pulse Resp BP Pulse Ox 97.4 F L 62 20 135/68 98 04/06/17 08:05 04/06/17 08:05 04/06/17 08:05 04/06/17 08:05 04/06/17 08:05 Intake and Output: 04/06/17 04/06/17 06:59 18:59 Intake Total 540 900 Output Total 1000 Balance -460 900 - Medications Medications: Current Medications Amlodipine Besylate (Norvasc) 5 mg PO DAILY [facility] Last Admin: 04/06/17 10:23 Dose: 5 mg Aspirin (Aspirin Chewable) 81 mg PO DAILY [facility] Last Admin: 04/06/17 10:20 Dose: 81 mg Atorvastatin Calcium (Lipitor) 10 mg PO DIN [facility] Last Admin: 04/06/17 17:34 Dose: 10 mg Betamethasone/Clotrimazole (Lotrisone) 0 ml TOP DAILY [facility] Last Admin: 04/06/17 14:18 Dose: Not Given Collagenase (Santyl) 1 gm TOP DAILY [facility] Last Admin: 04/06/17 10:23 Dose: 1 applic Ferrous Sulfate (Feosol) 324 mg PO DAILY [facility] Last Admin: 04/06/17 10:20 Dose: 324 mg Glipizide (Glucotrol) 5 mg PO 0730,1630 [facility] Last Admin: 04/06/17 17:34 Dose: 5 mg Meropenem (Merrem Iv 1 Gm Premix) 50 mls @ 100 mls/hr IVPB Q8 [facility] Last Admin: 04/06/17 14:17 Dose: 100 mls/hr Insulin Human Regular (Humulin R Low) 0 units SC ACHS [facility] PRN Reason: Protocol Last Admin: 04/06/17 16:29 Dose: Not Given Ketorolac Tromethamine (Toradol) 30 mg IVP Q6H PRN PRN Reason: Pain, moderate (4-7) Last Admin: 04/05/17 13:15 Dose: 30 mg Metformin HCl (Glucophage) 500 mg PO BID [facility] Last Admin: 04/06/17 17:34 Dose: 500 mg Sertraline HCl (Zoloft) 100 mg PO DAILY [facility] Last Admin: 04/06/17 10:20 Dose: 100 mg Thiamine HCl (Vitamin B1 Tab) 100 mg PO DAILY [facility] Last Admin: 04/06/17 10:20 Dose: 100 mg Tramadol HCl (Ultram) 50 mg PO Q8H PRN PRN Reason: Pain, severe (8-10) Last Admin: 04/06/17 14:50 Dose: 50 mg - Labs Labs: 04/05/17 07:00 04/05/17 07:00 PT 11.7 SECONDS (9.4-12.5) 03/29/17 09:50 INR 1.02 (0.93-1.08) 03/29/17 09:50 APTT 27.2 Seconds (25.1-36.5) 03/29/17 09:50 Attending/Attestation - Attestation I have personally seen and examined this patient.: Yes I have fully participated in the care of the patient.: Yes I have reviewed all pertinent clinical information, including history, physical exam and plan: Yes
--- NOTE | 2017-04-04 21:23 | PN ---
DATE: 04/04/2017 SUBJECTIVE: The patient is in bed, in no acute distress, and nontoxic. OBJECTIVE: VITAL SIGNS: Temperature is 97, blood pressure is 112/70, and respiratory rate is 16. HEENT: Unremarkable. NECK: Supple. LUNGS: Have decreased breath. HEART: Normal S1 and S2. ABDOMEN: Soft and nontender. LABORATORY DATA: Reveals a white count of 6.7, hemoglobin of 10, and platelets of 325. Chemistries are noted. Urinalysis is noted and HIV is negative. ASSESSMENT AND PLAN: This is a -[id number] female with bilateral lower extremity cellulitis, left leg ulcer and tumor, paraplegic, status post colostomy, indwelling catheter, hypertension, diabetes, anxiety, right-sided ischial decubitus ulcer with extended-spectrum beta-lactamases, day #7 of antibiotics and discontinue the antibiotics after today's dose local wound care and no further antibiotics necessary. Moshe Sales MD
[2017-04-05] MEDS: Meropenem IV 1 gm in NS 50 ML IVPB SCH ×3 (05:20→21:38)
[2017-04-05 07:55] LABS: HEMOGLOBIN 9.7 g/dL (12.0-16.0); MEAN CELL VOLUME 75.5 fl (80.0-105.0); MEAN CORPUSCULAR HEMOGLOBIN 22.2 pg (25.0-35.0); MEAN CORPUSCULAR HGB CONC 29.5 g/dl (31.0-37.0); MEAN PLATELET VOLUME 9.2 fl (7.0-11.0); RBC 4.36 10^6/uL (3.5-6.1); RED CELL DISTRIBUTION WIDTH 16.7 % (11.5-14.5); WHITE BLOOD COUNT 5.1 10^3/ul (4.5-11.0)
--- NOTE | 2017-04-05 08:07 | PN ---
DATE: 04/04/2017 SUBJECTIVE: I saw her resting comfortably in bed. Her legs look much less red. She is eating. She does not want to go to subacute rehab. She refuses the wound VAC. Very noncompliant. She is homeless. She is in a wheelchair with a colostomy and Miguel catheter for large decubitus ulcer and very stubborn in her thought process. the right hip. PHYSICAL EXAMINATION: VITAL SIGNS: Temperature 97.8, 78 pulse, 148/78 blood pressure, 20 respiratory rate, and 98% O2 sat on room air. HEENT: Head is atraumatic and normocephalic. HEART: Regular rate. LUNGS: Decreased breath sounds, but clear. ABDOMEN: Soft. Colostomy. EXTREMITIES: Paralyzed from a tumor that was removed in her low back. She has paraplegia, the legs are much less red. MEDICATIONS: She is on aspirin, Feosol, Glucophage, Glucotrol, insulin, Lipitor, lotrisone, Merrem IV, Norvasc, Santyl, vitamin B1, and Zoloft. LABORATORY DATA: She has 6.8 white count, 10.1 hemoglobin, and 33.5 hematocrit with 381 platelets. Last blood sugar was 96, sodium 137, potassium 3.7, BUN 15, creatinine 0.5, total bilirubin is 0.3, AST is 25, ALT is 24, and alkaline phosphatase is 114. She has been refusing some lab work. As per Infectious Disease, we are going to change I will discharge her at home since she refuses to go anywhere, anymore treatment for the right hip ulcer. She was told the condition she is in and the severity of the illness and she still refuses to follow directives. Carlos Enrique Ortiz DO MTDD
[2017-04-05] MEDS: Insulin Reg-LOW-Coverage SC SCH ×4 (08:30→21:27)
--- NOTE | 2017-04-05 08:57 | PN ---
ENDOCRINOLOGY FOLLOWUP NOTE DATE: ROOM: 571. SUBJECTIVE: This is a 57-year-old female with recent uncontrolled type 2 insulin-requiring diabetes, now being followed closely for metabolic management. Her oral intake remains quite variable with fluctuating glycemic levels as noted. Her glucose levels today have ranged from 79 to 121 and 124 mg/dL. It was 93 to 96 at bedtime last night. LABORATORY DATA: Her latest chemistry shows a BUN of 21, sodium 136, potassium 3.7, chloride 102, CO2 of 26, glucose 93 and creatinine 0.5. ASSESSMENT AND PLAN: At this time, we will actually lower the glipizide down to 5 mg p.o. b.i.d. before meals to start today. We will also continue metformin at 500 mg b.i.d. as ordered. We will continue the very low-dose correction scale using regular insulin as ordered. We will titrate incrementally as indicated to optimize metabolic control. We will follow. Lisa Junior MD
[2017-04-05 08:59] LABS: ALB/GLOB RATIO 1.1 (1.1-1.8); ALBUMIN 3.5 g/dL (3.0-4.8); ALT/SGPT 24 U/L (7-56); AST/SGOT 29 U/L (14-36); BLOOD UREA NITROGEN 22 mg/dL (7-21); CALCIUM 9.8 mg/dL (8.4-10.5); GFR AFRICAN-AMERICAN > 60; GFR NON-AFRICAN AMERICAN > 60
[2017-04-05] MEDS: Clotrimazole/Betamethasone Lotion(30 ml) TOP SCH (10:56)
[2017-04-05] MEDS: Collagenase 250 Units/gm Ointment(30 gm) TOP SCH (10:56)
--- NOTE | 2017-04-05 12:25 | CP.PCM.PN ---
<CroftNanette - Last Filed: 04/05/17 12:28> Subjective - Date & Time of Evaluation Date of Evaluation: 04/05/17 Time of Evaluation: 12:25 - Subjective Subjective: 57 yo female with PMHx of paraplegia 2/2 back tumor, HTN, DM, uterine fibroids, anxiety, and depression seen at bedside for B/L LE cellulitis with superficial, uninfected wounds to left leg. Patient is AAO x 3 and NAD resting comfortably in bed at time of visit. Pt denies any pain in the lower extremities or at the site of the wounds. Denies any acute overnight events. Denies recent N/V/F/C/CP/ SOB/D/posterior calf pain Objective - Vital Signs/Intake and Output Vital Signs (last 24 hours): Temp Pulse Resp BP Pulse Ox 98 F 64 20 182/94 H 99 04/05/17 08:16 04/05/17 08:16 04/05/17 08:16 04/05/17 08:16 04/05/17 08:16 Intake and Output: 04/05/17 04/05/17 06:59 18:59 Intake Total 1120 360 Output Total 1701 Balance -581 360 - Medications Medications: Current Medications Amlodipine Besylate (Norvasc) 5 mg PO DAILY [facility] Last Admin: 04/05/17 10:56 Dose: Not Given Aspirin (Aspirin Chewable) 81 mg PO DAILY [facility] Last Admin: 04/05/17 10:54 Dose: Not Given Atorvastatin Calcium (Lipitor) 10 mg PO DIN [facility] Last Admin: 04/04/17 16:37 Dose: 10 mg Betamethasone/Clotrimazole (Lotrisone) 0 ml TOP DAILY [facility] Last Admin: 04/05/17 10:56 Dose: Not Given Collagenase (Santyl) 1 gm TOP DAILY [facility] Last Admin: 04/05/17 10:56 Dose: Not Given Ferrous Sulfate (Feosol) 324 mg PO DAILY [facility] Last Admin: 04/05/17 10:54 Dose: Not Given Glipizide (Glucotrol) 5 mg PO 0730,1630 [facility] Last Admin: 04/05/17 08:30 Dose: Not Given Meropenem (Merrem Iv 1 Gm Premix) 50 mls @ 100 mls/hr IVPB Q8 [facility] Last Admin: 04/05/17 05:20 Dose: 100 mls/hr Insulin Human Regular (Humulin R Low) 0 units SC ACHS [facility] PRN Reason: Protocol Last Admin: 04/05/17 08:30 Dose: Not Given Ketorolac Tromethamine (Toradol) 30 mg IVP Q6H PRN PRN Reason: Pain, moderate (4-7) Last Admin: 04/04/17 22:22 Dose: 30 mg Metformin HCl (Glucophage) 500 mg PO BID [facility] Last Admin: 04/05/17 10:54 Dose: Not Given Sertraline HCl (Zoloft) 100 mg PO DAILY [facility] Last Admin: 04/05/17 10:56 Dose: Not Given Thiamine HCl (Vitamin B1 Tab) 100 mg PO DAILY [facility] Last Admin: 04/05/17 10:56 Dose: Not Given Tramadol HCl (Ultram) 50 mg PO Q8H PRN PRN Reason: Pain, severe (8-10) Last Admin: 04/05/17 05:20 Dose: 50 mg - Labs Labs: 04/05/17 07:00 04/05/17 07:00 PT 11.7 SECONDS (9.4-12.5) 03/29/17 09:50 INR 1.02 (0.93-1.08) 03/29/17 09:50 APTT 27.2 Seconds (25.1-36.5) 03/29/17 09:50 - Constitutional Appears: Well, Non-toxic, No Acute Distress - Extremities Exam Additional comments: LE focused exam: Vasc: DP/PT pulses palpable B/L. Skin temperature elevated to B/L LE but improving. CFT < 3 seconds to all digits B/L. Minimal edema noted to B/L LE Neuro: Epicritic and protective sensation grossly intact B/L. Derm: B/l cellulitic changes noted to legs- stable and improving. Two superficial wounds noted to left leg. Wound #1: Located posterior leg approximately 3 cm x 3 cm with fibrogranular base. No malodor, no purulent drainage, no tracking, tunneling or undermining noted. Wound #2: Located lateral leg approximately 2 cm x 2 cm with fibrogranular base. No malodor, no purulent drainage, no tracking, tunneling or undermining noted. Wounds and cellulitis slowly improving MSK: Paraplegia noted to RLE. Minimal POP to wounds. ROM WNL to left LE. Muscle strength 5/5 to all major muscle groups, left leg - Neurological Exam Neurological Exam: Alert, Awake, Oriented x3 - Psychiatric Exam Psychiatric exam: Normal Affect, Normal Mood Assessment and Plan - Assessment and Plan (Free Text) Assessment: 57 yo female PMHx of paraplegia 2/2 back tumor, HTN, DM, uterine fibroids, anxiety, and depression seen at bedside after being admitted through ED for bilateral LE cellulitis with wounds Plan: Patient seen and evaluated at bedside Plan discussed with attending Dr. Brito Afebrile, WBC 5.1 No signs of DVT Normal DALTON and PVR at rest Wounds to LLE dressed with optifoam Legs lathered in Lotrisone cream Continue Meropenem as per ID No plan for surgical intervention at this time Podiatry will continue to follow while patient in house <Anahy Brito - Last Filed: 04/06/17 18:06> Objective - Vital Signs/Intake and Output Vital Signs (last 24 hours): Temp Pulse Resp BP Pulse Ox 97.4 F L 62 20 135/68 98 04/06/17 08:05 04/06/17 08:05 04/06/17 08:05 04/06/17 08:05 04/06/17 08:05 Intake and Output: 04/06/17 04/06/17 06:59 18:59 Intake Total 540 900 Output Total 1000 Balance -460 900 - Medications Medications: Current Medications Amlodipine Besylate (Norvasc) 5 mg PO DAILY [facility] Last Admin: 04/06/17 10:23 Dose: 5 mg Aspirin (Aspirin Chewable) 81 mg PO DAILY [facility] Last Admin: 04/06/17 10:20 Dose: 81 mg Atorvastatin Calcium (Lipitor) 10 mg PO DIN [facility] Last Admin: 04/06/17 17:34 Dose: 10 mg Betamethasone/Clotrimazole (Lotrisone) 0 ml TOP DAILY [facility] Last Admin: 04/06/17 14:18 Dose: Not Given Collagenase (Santyl) 1 gm TOP DAILY [facility] Last Admin: 04/06/17 10:23 Dose: 1 applic Ferrous Sulfate (Feosol) 324 mg PO DAILY [facility] Last Admin: 04/06/17 10:20 Dose: 324 mg Glipizide (Glucotrol) 5 mg PO 0730,1630 [facility] Last Admin: 04/06/17 17:34 Dose: 5 mg Meropenem (Merrem Iv 1 Gm Premix) 50 mls @ 100 mls/hr IVPB Q8 [facility] Last Admin: 04/06/17 14:17 Dose: 100 mls/hr Insulin Human Regular (Humulin R Low) 0 units SC ACHS [facility] PRN Reason: Protocol Last Admin: 04/06/17 16:29 Dose: Not Given Ketorolac Tromethamine (Toradol) 30 mg IVP Q6H PRN PRN Reason: Pain, moderate (4-7) Last Admin: 04/05/17 13:15 Dose: 30 mg Metformin HCl (Glucophage) 500 mg PO BID [facility] Last Admin: 04/06/17 17:34 Dose: 500 mg Sertraline HCl (Zoloft) 100 mg PO DAILY [facility] Last Admin: 04/06/17 10:20 Dose: 100 mg Thiamine HCl (Vitamin B1 Tab) 100 mg PO DAILY [facility] Last Admin: 04/06/17 10:20 Dose: 100 mg Tramadol HCl (Ultram) 50 mg PO Q8H PRN PRN Reason: Pain, severe (8-10) Last Admin: 04/06/17 14:50 Dose: 50 mg - Labs Labs: 04/05/17 07:00 04/05/17 07:00 PT 11.7 SECONDS (9.4-12.5) 03/29/17 09:50 INR 1.02 (0.93-1.08) 03/29/17 09:50 APTT 27.2 Seconds (25.1-36.5) 03/29/17 09:50 Attending/Attestation - Attestation I have personally seen and examined this patient.: Yes I have fully participated in the care of the patient.: Yes I have reviewed all pertinent clinical information, including history, physical exam and plan: Yes
--- NOTE | 2017-04-05 19:48 | PN ---
ENDOCRINOLOGY FOLLOWUP NOTE DATE: LOCATION: In room 571. SUBJECTIVE: This is a 57-year-old female with recent uncontrolled type 2 insulin-requiring diabetes, currently undergoing IV antibiotic management for lower extremity cellulitis as noted and given. Her latest glucose levels have ranged from 75 to 116 and 134 mg/dL. Her latest chemistry showed a BUN of 22, sodium 134, potassium 3.6, chloride 101, CO2 of 25, glucose 83, and creatinine 0.5. So, at this time, we will continue the metformin given as 500 mg b.i.d. with glipizide given as 5 mg b.i.d. before meals as ordered. We will titrate incrementally as indicated to optimize metabolic control. We will obtain serial chemistries and supplement as accordingly needed. We will follow. Lisa Junior MD
--- NOTE | 2017-04-06 02:36 | PN ---
DATE: 04/05/2017 SUBJECTIVE: The patient was seen earlier this morning. No fevers. No chills. PHYSICAL EXAMINATION VITAL SIGNS: Temperature is 98, blood pressure is 180/90, and respiratory rate of 16. HEENT: Unremarkable. NECK: Supple. LUNGS: Have decreased breath sounds. HEART: Normal S1 and S2. ABDOMEN: Soft. LABORATORY DATA: Reveals a white count of 5.1, hemoglobin 9, BUN of 22, creatinine of 0.5. Urinalysis is negative and HIV is negative. ASSESSMENT AND PLAN: This is a 57-year-old female with bilateral lower extremity cellulitis, left leg ulcer and tumor, paraplegic, status post colostomy, indwelling catheter, hypertension, diabetes, anxiety, right-sided ischial decubitus ulcer with extended-spectrum beta-lactamases, completed antibiotic therapy. Currently off of antibiotics. Continue with the local wound care. 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 Moshe Sales MD
[2017-04-06 03:06] VITALS: RESP 20
[2017-04-06] MEDS: Meropenem IV 1 gm in NS 50 ML IVPB SCH ×2 (05:10→14:17)
--- NOTE | 2017-04-06 07:26 | DS ---
She is here for bilateral leg cellulitis. I was told that she refuses to go to any facility. She wants to be outside in the street. She is on the street. She has a large left hip decubitus ulcer. She does not want the wound VAC. She has finished the antibiotics for infection of the cellulitis. She is on aspirin, Feosol, Glucophage, Glucotrol, Lipitor, Lotrisone, Norvasc, Santyl, and she will use it, and Zoloft, hopefully she will take the medications. PHYSICAL EXAMINATION: VITAL SIGNS: She has 98 temperature, 64 pulse, 182/94 blood pressure, 20 respiratory rate, 99% O2 saturations, also 110/73 blood pressure. She receives the medicines from time to time. HEENT: Head is atraumatic, normocephalic. HEART: Regular rate. LUNGS: Decreased breath sounds, clear. ABDOMEN: Soft. EXTREMITIES: Paralyzed, but the cellulitis has gone. LABORATORY DATA: She has 5.1 white count, 9.7 hemoglobin, 32.9 hematocrit, and 342,000 platelets. She has a 134 sodium, potassium 3.6, BUN is 22, creatinine 0.5. GFR greater than 60, sugar is 93, calcium is 9.8. AST of 29, ALT of 24, alkaline phosphatase is 152. She has been seen by Endocrinology and also Infectious Disease. She was finishing the antibiotics yesterday. She is able to be discharged today. I am sorry, she is going out to the street plus where she wants to go. I would like to see she go to Physical Therapy. She has the insurance to do it. She refuses to do it. She says she is a free spirit and will not go there. Carlos Enrique Ortiz DO
[2017-04-06] MEDS: Insulin Reg-LOW-Coverage SC SCH ×4 (08:05→22:50)
[2017-04-06] MEDS: Collagenase 250 Units/gm Ointment(30 gm) TOP SCH (10:23)
[2017-04-06] MEDS: Clotrimazole/Betamethasone Lotion(30 ml) TOP SCH (14:18)
--- NOTE | 2017-04-06 14:45 | CP.PCM.PN ---
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 Patient is AAO x 3 and NAD resting comfortably in bed at time of visit. Pt denies any pain in the lower extremities or at the site of the wounds. Pt says she took her dressings off because she was feeling hot. She also says she has been given boots to wear in bed previously but she refuses them as they make her feel too warm. Patient says she is fully aware she can get bed sores this way but she does not care, as she does not want to wear offloading boots in bed. Denies any acute overnight events. Denies recent N/V/F/C/CP/SOB/D/posterior calf pain Objective - Vital Signs/Intake and Output Vital Signs (last 24 hours): Temp Pulse Resp BP Pulse Ox 97.4 F L 62 20 135/68 98 04/06/17 08:05 04/06/17 08:05 04/06/17 08:05 04/06/17 08:05 04/06/17 08:05 Intake and Output: 04/06/17 04/06/17 06:59 18:59 Intake Total 540 Output Total 1000 Balance -460 - Medications Medications: Current Medications Amlodipine Besylate (Norvasc) 5 mg PO DAILY [facility] Last Admin: 04/06/17 10:23 Dose: 5 mg Aspirin (Aspirin Chewable) 81 mg PO DAILY [facility] Last Admin: 04/06/17 10:20 Dose: 81 mg Atorvastatin Calcium (Lipitor) 10 mg PO DIN [facility] Last Admin: 04/05/17 17:51 Dose: 10 mg Betamethasone/Clotrimazole (Lotrisone) 0 ml TOP DAILY [facility] Last Admin: 04/06/17 14:18 Dose: Not Given Collagenase (Santyl) 1 gm TOP DAILY [facility] Last Admin: 04/06/17 10:23 Dose: 1 applic Ferrous Sulfate (Feosol) 324 mg PO DAILY [facility] Last Admin: 04/06/17 10:20 Dose: 324 mg Glipizide (Glucotrol) 5 mg PO 0730,1630 [facility] Last Admin: 04/06/17 08:15 Dose: 5 mg Meropenem (Merrem Iv 1 Gm Premix) 50 mls @ 100 mls/hr IVPB Q8 [facility] Last Admin: 04/06/17 14:17 Dose: 100 mls/hr Insulin Human Regular (Humulin R Low) 0 units SC ACHS [facility] PRN Reason: Protocol Last Admin: 04/06/17 11:29 Dose: Not Given Ketorolac Tromethamine (Toradol) 30 mg IVP Q6H PRN PRN Reason: Pain, moderate (4-7) Last Admin: 04/05/17 13:15 Dose: 30 mg Metformin HCl (Glucophage) 500 mg PO BID [facility] Last Admin: 04/06/17 10:20 Dose: 500 mg Sertraline HCl (Zoloft) 100 mg PO DAILY [facility] Last Admin: 04/06/17 10:20 Dose: 100 mg Thiamine HCl (Vitamin B1 Tab) 100 mg PO DAILY [facility] Last Admin: 04/06/17 10:20 Dose: 100 mg Tramadol HCl (Ultram) 50 mg PO Q8H PRN PRN Reason: Pain, severe (8-10) Last Admin: 04/06/17 05:20 Dose: 50 mg - Labs Labs: 04/05/17 07:00 04/05/17 07:00 PT 11.7 SECONDS (9.4-12.5) 03/29/17 09:50 INR 1.02 (0.93-1.08) 03/29/17 09:50 APTT 27.2 Seconds (25.1-36.5) 03/29/17 09:50 - Constitutional Appears: Well, Non-toxic, No Acute Distress - Extremities Exam Additional comments: LE focused exam: Vasc: DP/PT pulses palpable B/L. Skin temperature elevated to B/L LE but improving. CFT < 3 seconds to all digits B/L. Minimal edema noted to B/L LE Neuro: Epicritic and protective sensation grossly intact B/L. Derm: B/l cellulitic changes noted to legs- stable and improving. Two superficial wounds noted to left leg. Wound #1: Located posterior leg approximately 3 cm x 3 cm with fibrogranular base - hyperkeratotic tissue and epithelialization forming roof over wound with good signs of healing noted. No malodor, no purulent drainage, no tracking, tunneling or undermining noted. Wound #2: Located lateral leg approximately 2 cm x 2 cm with fibrogranular base. Good signs of healing noted with epithelialization. No malodor, no purulent drainage, no tracking, tunneling or undermining noted. Wounds and cellulitis slowly improving. Mild erythema is noted to posteroplantar aspect of bilateral heels, indicative of stage 1 pressure ulceration MSK: Paraplegia noted to RLE. No tenderness on palpation of wounds. ROM WNL to left LE. 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 Jenkins Afebrile, NNL No signs of DVT Normal DALTON and PVR at rest Superficial ounds to LLE dressed with optifoam Legs lathered in Lotrisone cream Rx new multipodus boots to be worn at all times in bed Continue Meropenem as per ID No plan for surgical intervention at this time Pt stable for discharge from podiatry standpoint Podiatry will continue to follow while patient in house <Bhavik Jenkins - Last Filed: 04/06/17 18:03> Objective - Vital Signs/Intake and Output Vital Signs (last 24 hours): Temp Pulse Resp BP Pulse Ox 97.4 F L 62 20 135/68 98 04/06/17 08:05 04/06/17 08:05 04/06/17 08:05 04/06/17 08:05 04/06/17 08:05 Intake and Output: 04/06/17 04/06/17 06:59 18:59 Intake Total 540 900 Output Total 1000 Balance -460 900 - Medications Medications: Current Medications Amlodipine Besylate (Norvasc) 5 mg PO DAILY [facility] Last Admin: 04/06/17 10:23 Dose: 5 mg Aspirin (Aspirin Chewable) 81 mg PO DAILY [facility] Last Admin: 04/06/17 10:20 Dose: 81 mg Atorvastatin Calcium (Lipitor) 10 mg PO DIN [facility] Last Admin: 04/06/17 17:34 Dose: 10 mg Betamethasone/Clotrimazole (Lotrisone) 0 ml TOP DAILY [facility] Last Admin: 04/06/17 14:18 Dose: Not Given Collagenase (Santyl) 1 gm TOP DAILY [facility] Last Admin: 04/06/17 10:23 Dose: 1 applic Ferrous Sulfate (Feosol) 324 mg PO DAILY [facility] Last Admin: 04/06/17 10:20 Dose: 324 mg Glipizide (Glucotrol) 5 mg PO 0730,1630 [facility] Last Admin: 04/06/17 17:34 Dose: 5 mg Meropenem (Merrem Iv 1 Gm Premix) 50 mls @ 100 mls/hr IVPB Q8 [facility] Last Admin: 04/06/17 14:17 Dose: 100 mls/hr Insulin Human Regular (Humulin R Low) 0 units SC ACHS [facility] PRN Reason: Protocol Last Admin: 04/06/17 16:29 Dose: Not Given Ketorolac Tromethamine (Toradol) 30 mg IVP Q6H PRN PRN Reason: Pain, moderate (4-7) Last Admin: 04/05/17 13:15 Dose: 30 mg Metformin HCl (Glucophage) 500 mg PO BID [facility] Last Admin: 04/06/17 17:34 Dose: 500 mg Sertraline HCl (Zoloft) 100 mg PO DAILY [facility] Last Admin: 04/06/17 10:20 Dose: 100 mg Thiamine HCl (Vitamin B1 Tab) 100 mg PO DAILY [facility] Last Admin: 04/06/17 10:20 Dose: 100 mg Tramadol HCl (Ultram) 50 mg PO Q8H PRN PRN Reason: Pain, severe (8-10) Last Admin: 04/06/17 14:50 Dose: 50 mg - Labs Labs: 04/05/17 07:00 04/05/17 07:00 PT 11.7 SECONDS (9.4-12.5) 03/29/17 09:50 INR 1.02 (0.93-1.08) 03/29/17 09:50 APTT 27.2 Seconds (25.1-36.5) 03/29/17 09:50 Attending/Attestation - Attestation I have personally seen and examined this patient.: Yes I have reviewed all pertinent clinical information, including history, physical exam and plan: Yes
--- NOTE | 2017-04-06 21:04 | CP.PCM.PN ---
Subjective - Date & Time of Evaluation Date of Evaluation: 04/06/17 Time of Evaluation: 12:40 - Subjective Subjective: Comfortable, no fevers. Objective - Vital Signs/Intake and Output Vital Signs (last 24 hours): Temp Pulse Resp BP Pulse Ox 97.4 F L 62 20 135/68 98 04/06/17 08:05 04/06/17 08:05 04/06/17 08:05 04/06/17 08:05 04/06/17 08:05 Intake and Output: 04/06/17 04/07/17 18:59 06:59 Intake Total 900 Balance 900 - Medications Medications: Current Medications Amlodipine Besylate (Norvasc) 5 mg PO DAILY [facility] Last Admin: 04/06/17 10:23 Dose: 5 mg Aspirin (Aspirin Chewable) 81 mg PO DAILY [facility] Last Admin: 04/06/17 10:20 Dose: 81 mg Atorvastatin Calcium (Lipitor) 10 mg PO DIN [facility] Last Admin: 04/06/17 17:34 Dose: 10 mg Betamethasone/Clotrimazole (Lotrisone) 0 ml TOP DAILY [facility] Last Admin: 04/06/17 14:18 Dose: Not Given Collagenase (Santyl) 1 gm TOP DAILY [facility] Last Admin: 04/06/17 10:23 Dose: 1 applic Ferrous Sulfate (Feosol) 324 mg PO DAILY [facility] Last Admin: 04/06/17 10:20 Dose: 324 mg Glipizide (Glucotrol) 5 mg PO 0730,1630 [facility] Last Admin: 04/06/17 17:34 Dose: 5 mg Meropenem (Merrem Iv 1 Gm Premix) 50 mls @ 100 mls/hr IVPB Q8 [facility] Last Admin: 04/06/17 14:17 Dose: 100 mls/hr Insulin Human Regular (Humulin R Low) 0 units SC ACHS [facility] PRN Reason: Protocol Last Admin: 04/06/17 16:29 Dose: Not Given Ketorolac Tromethamine (Toradol) 30 mg IVP Q6H PRN PRN Reason: Pain, moderate (4-7) Last Admin: 04/05/17 13:15 Dose: 30 mg Metformin HCl (Glucophage) 500 mg PO BID [facility] Last Admin: 04/06/17 17:34 Dose: 500 mg Sertraline HCl (Zoloft) 100 mg PO DAILY [facility] Last Admin: 04/06/17 10:20 Dose: 100 mg Thiamine HCl (Vitamin B1 Tab) 100 mg PO DAILY [facility] Last Admin: 04/06/17 10:20 Dose: 100 mg Tramadol HCl (Ultram) 50 mg PO Q8H PRN PRN Reason: Pain, severe (8-10) Last Admin: 04/06/17 14:50 Dose: 50 mg - Labs Labs: 04/05/17 07:00 04/05/17 07:00 PT 11.7 SECONDS (9.4-12.5) 03/29/17 09:50 INR 1.02 (0.93-1.08) 03/29/17 09:50 APTT 27.2 Seconds (25.1-36.5) 03/29/17 09:50 - Constitutional Appears: Non-toxic - Head Exam Head Exam: NORMAL INSPECTION - ENT Exam ENT Exam: Mucous Membranes Moist - Neck Exam Neck Exam: absent: Meningismus - Respiratory Exam Respiratory Exam: Decreased Breath Sounds - Cardiovascular Exam Cardiovascular Exam: +S1, +S2 - GI/Abdominal Exam GI & Abdominal Exam: Soft. absent: Tenderness Assessment and Plan - Assessment and Plan (Free Text) Plan: Assessment S/P bilateral lower extremity cellulitis with left leg ulcers back tumor with paraplegia S/P colostomy indwelling Miguel catheter HTN DM anxiety right sided ischial decubitus ulcer Plan continue to monitor clinically off antibiotics since she is at risk for nosocomial infections
--- NOTE | 2017-04-07 00:10 | PN ---
DATE: SUBJECTIVE: This is a 56-year-old female with recent uncontrolled type 2 diabetes, now with improved metabolic profile and even actually low normal glycemic levels overnight as noted. Her glucose levels have ranged from 66 to 99 and 111 mg/dl. Her latest chemistry showed BUN of 22, sodium 134, potassium 3.6, chloride 101, CO2 of 25, glucose 83 and creatinine 0.5. So, we have actually discontinued her glipizide tonight given as 5 mg p.o. b.i.d. before meals as ordered. We will continue only now the metformin given as 500 mg p.o. b.i.d. after meals as ordered. We will titrate incrementally as indicated to optimize metabolic control. We will follow and advice accordingly. Lisa Junior MD
--- NOTE | 2017-04-07 03:51 | DS ---
HISTORY OF PRESENT ILLNESS: I tried to discharge her yesterday and was to do psych consult before I discharge her. She is being seen by Surgery, Infectious Disease, Podiatry, Endocrinology, and I called in Psychiatry for their opinion. She is currently on aspirin, iron, Glucophage, Glucotrol, Lipitor, Lotrisone cream, Norvasc, Santyl, Toradol, Ultram, vitamin B1, and Zoloft; and she is on Merrem, and says she did not need to take it anymore because Infectious Disease stopped it. I had a nice discussion with her this morning. She does not want to go to rehab. She does not want to stay in the hospital anymore if her treatment is over. She wants to go out to the streets, that is what she wants to do. She also refused the wound VAC, and she stuffed the wound with tissue paper. I discussed the importance of which she wants to do, she said no ways; she is homeless, she lives on [address]. PHYSICAL EXAMINATION: VITAL SIGNS: Temperature 97.4, pulse 62, blood pressure 135/68, respiratory rate 20, O2 sat 98% on room air. HEENT: Head is atraumatic and normocephalic. NEUROLOGIC: She is alert and oriented x3. She understands her decision making. HEART: Regular rate. LUNGS: Decreased breath sounds, but clear to auscultation. ABDOMEN: Soft. EXTREMITIES: She has bilateral lower extremity paralysis from a lower back tumor. She cannot move them, did go through cellulitis. MEDICATIONS: She is off the antibiotics. LABORATORY DATA: She has a 5.1 white count, 9.7 hemoglobin, 32.9 hematocrit with a 342 platelets. She has a less blood sugar with 67. She has 134 sodium, potassium 3.6, BUN 22, creatinine 0.5. GFR is less than 60, sugar is 83, calcium is 9.8, total bilirubin is 0.3. AST is 29, ALT is 24, alkaline phosphatase is 152. She is having urinary tract infection while she was here, and HIV is negative. ASSESSMENT AND PLAN: I discussed the importance of taking care of the hip ulcer and herself and her condition, and she understands this. She wants to go back out into the streets. She does not want to follow up with further care at subacute rehab and skin care or anything like that. My plan is to discharge her today for further care with Psychiatry. We will be treating with these medications. Carlos Enrique Ortiz DO MTDJovan
[2017-04-07] MEDS: Insulin Reg-LOW-Coverage SC SCH (08:00)
--- NOTE | 2017-04-07 08:53 | CP.PCM.PN ---
Subjective - Date & Time of Evaluation Date of Evaluation: 04/07/17 Time of Evaluation: 08:50 - Subjective Subjective: Podiatry progress note for Dr. Jenkins 57 yo female was seen at bedside for uninfected wounds to left leg and bilateral cellulitis. Patient is AAO x 3 and NAD resting comfortably in bed at time of visit. She denies any pain in the lower extremities or at the site of the wounds. She does not have any offloading boots to her lower extremities. Denies any n/v/f/c/sob/cp. Objective - Vital Signs/Intake and Output Vital Signs (last 24 hours): Temp Pulse Resp BP Pulse Ox 97.4 F L 62 20 135/68 98 04/06/17 08:05 04/06/17 08:05 04/06/17 08:05 04/06/17 08:05 04/06/17 08:05 Intake and Output: 04/07/17 04/07/17 06:59 18:59 Intake Total 900 Output Total 1900 700 Balance -1000 -700 - Medications Medications: Current Medications Amlodipine Besylate (Norvasc) 5 mg PO DAILY [facility] Last Admin: 04/06/17 10:23 Dose: 5 mg Aspirin (Aspirin Chewable) 81 mg PO DAILY [facility] Last Admin: 04/06/17 10:20 Dose: 81 mg Atorvastatin Calcium (Lipitor) 10 mg PO DIN [facility] Last Admin: 04/06/17 17:34 Dose: 10 mg Betamethasone/Clotrimazole (Lotrisone) 0 ml TOP DAILY [facility] Last Admin: 04/06/17 14:18 Dose: Not Given Collagenase (Santyl) 1 gm TOP DAILY [facility] Last Admin: 04/06/17 10:23 Dose: 1 applic Ferrous Sulfate (Feosol) 324 mg PO DAILY [facility] Last Admin: 04/06/17 10:20 Dose: 324 mg Insulin Human Regular (Humulin R Low) 0 units SC ACHS [facility] PRN Reason: Protocol Last Admin: 04/06/17 22:50 Dose: Not Given Ketorolac Tromethamine (Toradol) 30 mg IVP Q6H PRN PRN Reason: Pain, moderate (4-7) Last Admin: 04/05/17 13:15 Dose: 30 mg Metformin HCl (Glucophage) 500 mg PO BID [facility] Last Admin: 04/06/17 17:34 Dose: 500 mg Sertraline HCl (Zoloft) 100 mg PO DAILY [facility] Last Admin: 04/06/17 10:20 Dose: 100 mg Thiamine HCl (Vitamin B1 Tab) 100 mg PO DAILY [facility] Last Admin: 04/06/17 10:20 Dose: 100 mg Tramadol HCl (Ultram) 50 mg PO Q8H PRN PRN Reason: Pain, severe (8-10) Last Admin: 04/06/17 23:40 Dose: 50 mg - Labs Labs: 04/05/17 07:00 04/05/17 07:00 PT 11.7 SECONDS (9.4-12.5) 03/29/17 09:50 INR 1.02 (0.93-1.08) 03/29/17 09:50 APTT 27.2 Seconds (25.1-36.5) 03/29/17 09:50 - Constitutional Appears: Well, Non-toxic, No Acute Distress - Extremities Exam Additional comments: Lower extremity focused exam: Vasc: DP and PT pulses palpable B/L. Skin temperature elevated to B/L LE but improving. CFT < 3 seconds to all digits B/L. Minimal edema noted to B/L LE Neuro: Epicritic and protective sensation grossly intact B/L. Derm: B/l cellulitic changes noted to legs- stable and improving. Two superficial wounds noted to left leg. Wound #1: Located posterior leg approximately 3 cm x 3 cm with fibrogranular base - hyperkeratotic tissue and epithelialization forming roof over wound with good signs of healing noted. No malodor, no purulent drainage, no tracking, tunneling or undermining noted. Wound #2: Located lateral leg approximately 2 cm x 2 cm with fibrogranular base. Good signs of healing noted with epithelialization. No malodor, no purulent drainage, no tracking, tunneling or undermining noted. Wounds and cellulitis slowly improving. Mild erythema is noted to posteroplantar aspect of bilateral heels, indicative of stage 1 pressure ulceration Ortho: Paraplegia noted to RLE. No tenderness on palpation of wounds. ROM WNL to left LE. Muscle strength 5/5 to all major muscle groups of left lower extremity - Neurological Exam Neurological Exam: Alert, Awake, Oriented x3 - Psychiatric Exam Psychiatric exam: Normal Affect, Normal Mood Assessment and Plan - Assessment and Plan (Free Text) Assessment: 57 year old female with bilateral LE cellulitis and left leg wounds Plan: Patient seen and evaluated at bedside Plan discussed with attending Dr. Jenkins lab, chart, vitals reviewed ; Afebrile Wounds to LLE dressed with optifoam Lotrisone applied to b/l LE Multipodus boots to be worn at all times in bed Continue Meropenem as per ID No plan for surgical intervention at this time Pt stable for discharge from podiatry standpoint Podiatry will continue to follow while patient in house
[2017-04-07 09:37] VITALS: BP 136/71; PULSE 71; TEMP 97.8; O2SAT 95
--- NOTE | 2017-04-07 23:09 | PN ---
DATE: SUBJECTIVE: The patient is seen early this morning in 571, bed 2. The patient has no fevers, no chills, and no nausea. OBJECTIVE: VITAL SIGNS: Temperature is 97, blood pressure is 112/70, and respiratory rate is 16. HEENT: Unremarkable. NECK: Supple. LUNGS: Have decreased breath sounds. HEART: Normal S1 and S2. ABDOMEN: Soft. LABORATORY DATA: Reveals a white count of 5.1 and hemoglobin of 9. Chemistries are noted. Creatinine is 0.5. ASSESSMENT AND PLAN: This is a -[id number] female who was seen early this morning in room 571, bed 2. The patient with bilateral lower extremity cellulitis and leg ulcers improving, back tumor with paraplegia, status post colostomy, indwelling Miguel catheter, hypertension, diabetes, anxiety, right-sided ischial decubitus ulcer, and local wound care. Currently off of antibiotics. Long-term prognosis is poor. Moshe Sales MD
--- NOTE | 2017-04-08 02:42 | PN ---
DATE: 04/07/2017 ENDOCRINOLOGY FOLLOWUP NOTE LOCATION: Room 571. SUMMARY: This is a 56-year-old female with recent uncontrolled type 2 diabetes, now being followed closely for metabolic management. She presented here with lower extremity cellulitis and underwent IV antibiotic management and local debridement procedures as noted. Her glycemic levels improved and today's glucose values have ranged from 111 mg/dL to 178 mg/dL. She has been scheduled for discharge also today on 04/07/2017 and will be going home on metformin given as 500 mg b.i.d. after meals as ordered. She will follow with a medical doctor for outpatient diabetic and medical followup. We will follow with you. Lisa Junior MD
--- NOTE | 2017-04-08 09:42 | DS ---
HOSPITAL COURSE: This is the third day I am discharging her. I had a call last night from the elementary school social worker that she will be discharged today at 9:00 a.m., right now it is 11:34, she is still here, I am not sure how transportation, but she is being discharged on aspirin, iron, Glucophage, Lotrisone, Norvasc, Santyl, Toradol, Ultram, vitamin B1, and Zoloft. She wants to go home. She is alert and says "get me out of here." PHYSICAL EXAMINATION: VITAL SIGNS: Temperature 97.8, 71 pulse, 136/71 blood pressure, 20 respiratory rate, 95% and O2 sat on room air. HEENT: Head is atraumatic, normocephalic. HEART: Regular rate. LUNGS: Clear to auscultation. EXTREMITIES: Bilateral lower extremity cellulitis is improved and she has a left large decubitus ulcer that is clean and she stopped pull out the wound VAC. LABORATORY DATA: She has 5.1 white count, 9.7 hemoglobin, and 342 platelets. Last blood sugar was 148, BUN was 22, and creatinine 0.5. I think she improved greatly while she was here. I wish she will go to rehab and help us with the decubitus ulcer, she refuses to do that. Otherwise, she is asking to being discharged. Carlos Enrique Ortiz DO MTDD
--- NOTE | 2017-04-09 09:17 | CON ---
DATE: 04/06/2017 She is being seen today for a consultation. HISTORY OF PRESENT ILLNESS: The patient is seen at her bedside in her hospital room. She is a 57-year-old female. She is on contact precautions. The patient was admitted to [facility] on 03/27/2017. She was brought into the emergency room by EMS, complaining of bilateral lower extremity redness and warmth. She did have a sacral pressure ulcer at that time. 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 Psych consult was called due to the patient pulling at her wound VAC and was chewing on her Miguel bag. The patient was fairly difficult to interview due to the fact that she is extremely hard of hearing and [place] is her second language. She is fluent but it was lot of difficulty to talk with her. The patient indicates that she does not have a home. She needs a room and a homemaker to help her because she cannot walk. 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 She indicates that she does not have any relative in the family to help her that she is in contact with, but she does have some friends. She does have one son who lives in [place] [place] [facility]. She talks to him on the phone now and again but they are not close. The patient was never psychiatrically hospitalized. She denies ever seeing a psychiatrist or ever having any suicidal attempts or suicidal thoughts. She has been on Zoloft. She is unable to tell me when she started on the Zoloft, that she has been on it a very long time and whoever gave it to her told her that it would help her mood and she feels that it is helpful to her, that she is coping better and doing better in terms of her mood because she is on it. She is on Zoloft 100 mg one p.o. daily here in the hospital as well. The patient denies any history of alcohol or drug use, past or current. She denies ever being arrested, having a night in intermediate, any kind of legal history. She indicates that she grew up in [place]. She had a normal childhood. She had left [place] at 20 to come here and get a job. She has already had her one child by that time and she left it in [place]. Again, she talks to him. She indicates that she did well in school and that she always has had friends and she has a few now that will help her. It is difficult to get much of a history from her, not because she is difficult or because she is unclear in her thought processes, it really is very difficult for her to hear me even with me yelling at the top of my lungs and repeating the question. CURRENT VITAL SIGNS: Include temperature of 97.4, pulse rate of 62, blood pressure 135/68, respiratory rate of 20 and a O2 sat of 98%. Her last glucose reading was 99 at 11:07 this morning. Wound culture for her decubiti on her right buttocks wound came positive for E. coli. On the 03/27, her urine culture came back positive for E. coli as well. MENTAL STATUS EXAM: The patient is alert and oriented x3. She is pleasant and cooperative. Her mood is blunted. Her affect is constricted. Her thoughts are goal directed. She does not converse at all. She exactly answers the question that once she hears but does not expand upon anything that we discussed. She denies being suicidal or homicidal. Denies any history of suicidal thoughts or attempt. She denies being homicidal. Denies the presence of hallucinations, delusions or paranoia. Her concentration and focus, she indicates are normal and she is logical and coherent in her responses to me. Her memory, both short and long-term appears to be adequate. Her appetite and her sleep, she reports are normal. When I questioned to her about pulling out the tube and what happened there, she does not able to give me an answer, she did not appear to even know what I was talking about, she seemed puzzled or was not understanding what I was saying. 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 PLAN: The patient denies being suicidal or homicidal. She denies being depressed or anxious. She does not appear to be in any imminent danger of hurting herself or others and she does not give the appearance of any type of psychosis. She denies the presence of hallucination, delusions or paranoia. The patient appears to be psychiatrically stable. I will be signing off. This case has been discussed with Dr. Satnos. If there are any further needs, please call. Thank you for the consult. Nathalia Aguilar APN Alicia Snatos MD JONAS
== END 2017-04-07 14:12 | disposition home or self-care (01) | DRG 563 ==
LOC: ED 18:35 → ERH 22:52 → 5RNO 03-28 02:26 → OBSVTOIN 03-28 08:41 → 5RSO 03-30 10:53
PROVIDERS: ADMIT Family Medicine; ATTEND Family Medicine
DX: L03.116 Cellulitis of left lower limb (principal); L89.154 Pressure ulcer of sacral region, stage 4; L89.229 Pressure ulcer of left hip, unspecified stage; E11.22 Type 2 diabetes mellitus with diabetic chronic kidney disease; L89.314 Pressure ulcer of right buttock, stage 4; E88.81 Metabolic syndrome and other insulin resistance; K92.2 Gastrointestinal hemorrhage, unspecified; E11.622 Type 2 diabetes mellitus with other skin ulcer; J93.82 Other air leak; L89.621 Pressure ulcer of left heel, stage 1; L89.611 Pressure ulcer of right heel, stage 1; N18.9 Chronic kidney disease, unspecified; N39.0 Urinary tract infection, site not specified; R32 Unspecified urinary incontinence; L97.929 Non-pressure chronic ulcer of unspecified part of left lower leg with unspecified severity; G82.20 Paraplegia, unspecified; L03.115 Cellulitis of right lower limb; D50.9 Iron deficiency anemia, unspecified; Z93.3 Colostomy status; Z99.3 Dependence on wheelchair; Z86.69 Personal history of other diseases of the nervous system and sense organs; E78.5 Hyperlipidemia, unspecified; F32.89 Other specified depressive episodes; F41.9 Anxiety disorder, unspecified; H91.90 Unspecified hearing loss, unspecified ear; I12.9 Hypertensive chronic kidney disease with stage 1 through stage 4 chronic kidney disease, or unspecified chronic kidney disease; Z59.0 Homelessness; Z79.4 Long term (current) use of insulin; Z79.82 Long term (current) use of aspirin; Z79.899 Other long term (current) drug therapy; Z91.19 Patient's noncompliance with other medical treatment and regimen; B96.20 Unspecified Escherichia coli [E. coli] as the cause of diseases classified elsewhere; D25.9 Leiomyoma of uterus, unspecified